=== PATIENT | female | born 1975 | race Caucasian/White ===

== ENCOUNTER → 2017-12-27 16:31 | Outpatient (CLI) | payer BC, SELFPAY ==
[2017-12-27 17:47] LABS: Hemoglobin 13.2 g/dl (12.0-15.0); Mean Corpuscular Hgb 30.5 pg (27.0-32.0); Mean Corpuscular Volume 92.4 fL (81-99); Mean Platelet Vol. 10.7 fl (6.2-12.0); Platelet Count 271 K/mm3 (150-450); RBC Distribution Width CV 13.3 % (11.6-14.6); RBC Distribution Width SD 44.2 fl (35.1-43.9); Red Blood Count 4.33 M/mm3 (4.2-5.4); White Blood Count 7.7 K/mm3 (4.4-11.0)
[2017-12-27 17:55] LABS: Scan Indicated on CBC? Y/N NO
[2017-12-27 18:09] LABS: Vitamin B12 770 pg/mL (211-911); Vitamin D,25 Hydroxy 22.1 ng/mL (29.95-100.01)
[2017-12-27 18:15] LABS: Anion Gap 10 (5-15); BUN 14 mg/dL (7-18); BUN/Creat Ratio 17.3 RATIO (10-20); Calcium,Total 9.1 mg/dL (8.5-10.1); Chloride 111 mmol/L (98-107); Creatinine, Serum 0.81 mg/dL (0.55-1.02); EST Glomerular Filtration Rate 82 mL/min (>60); Est Glom Filt Rate - Afr Amer 100 mL/min (>60); Glucose 105 mg/dL (74-106); Magnesium 2.1 mg/dL (1.6-2.6); Potassium 4.2 mmol/L (3.5-5.1); Sodium Level 143 mmol/L (136-145); Thyroid Stim Hormone (TSH) 2.08 uIU/mL (0.358-3.74)
[2017-12-27 18:38] LABS: Erythrocyte Sedimentation Rate 12 mm/hr (0-20)
== END ==
PROVIDERS: Family Provider Family Medicine; PCP Family Medicine; Visit Provider Family Medicine
DX: E55.9 Vitamin D deficiency, unspecified (principal); R00.2 Palpitations; M25.50 Pain in unspecified joint
CPT/HCPCS: 36415; 80048; 82306; 82607; 83735; 84443; 85027; 85652

== ENCOUNTER → 2018-03-24 08:55 | Outpatient (CLI) | payer BC, SELFPAY ==
--- NOTE | 2018-03-24 09:39 | BI_ITS ---
MAMMOGRAPHY - BILATERAL SCREENING REASON FOR EXAM: Female, 42 years old. Routine annual screening examination. PERTINENT HISTORY: Non-contributory. TECHNIQUE: Digital bilateral breast cortez (3D mammographic acquisition) in the CC and MLO projections. 2-D mediolateral oblique (MLO) and craniocaudad (CC) views of both breasts were obtained. CAD: Full Field Digital Mammography with Computer Added Detection was performed. COMPARISON: Comparison is made with prior examination dated February 24, 2017 and February 19, 2016. FINDINGS: Breast Composition: The breasts are heterogeneously dense, which may obscure small masses. There are no dominant masses or suspicious calcifications. Stable appearance of the bilateral axillary lymph nodes. No other significant abnormalities are identified. There has been no significant change since the prior study. BI/SCREENING MAMM (CAD), BILAT IMPRESSION: Stable bilateral screening mammogram. Yearly follow-up mammogram recommended. (A) ASSESSMENT CATEGORY: BIRADS Category 2: Benign. A letter regarding these results will be sent to the patient by the facility within 30 days. Approximately 10% of breast cancers are not detected by mammography. A normal mammogram should not delay biopsy of a clinically suspicious abnormality. [id number] Electronically Signed: Juan Krishna MD at 9:03 EDT Tel [phone], Service support ,
== END ==
PROVIDERS: Family Provider Family Medicine; PCP Family Medicine
DX: Z12.31 Encounter for screening mammogram for malignant neoplasm of breast (principal)
CPT/HCPCS: 77063; 77067

== ENCOUNTER → 2018-07-31 17:06 | Outpatient (CLI) | payer BC, SELFPAY ==
--- NOTE | 2018-07-31 17:11 | RAD_ITS ---
STUDY: X-RAY - LEFT FOOT CLINICAL: Female, 43 years old. Pain TECHNIQUE: Three view(s) of the foot were obtained. COMPARISON: None. FINDINGS: Bones: There are no acute osseous abnormalities. There is a small spur off the inferior calcaneus. Joints: The visualized joints are unremarkable. Soft tissues: The soft tissues are unremarkable. Foreign body: None RAD/Foot min 3 Views IMPRESSION: No significant abnormalities are seen radiographically in the left foot. Electronically Signed: Lisa Perkins MD at 0:03 EST Tel Direct: [phone], Service support ,
== END ==
PROVIDERS: Family Provider Family Medicine; PCP Family Medicine; Referring Provider Family Medicine; Visit Provider Family Medicine
DX: M25.572 Pain in left ankle and joints of left foot (principal)
CPT/HCPCS: 73630

== ENCOUNTER → 2018-10-19 17:45 | Outpatient (CLI) | payer BC, SELFPAY ==
--- NOTE | 2018-10-19 18:15 | MRI_ITS ---
STUDY: MRI LEFT MIDFOOT REASON FOR EXAM: Female, 43 years old. Metatarsal stress fracture. Pain for 4 months. TECHNIQUE: Standardized fat and water weighted pulse sequences were obtained in all 3 orthogonal planes. COMPARISON: None. FINDINGS: Normal talonavicular articulation. Normal calcaneocuboid articulation. Normal navicular-cuneiform articulations. Normal intercuneiform articulations. Normal first tarsometatarsal articulation. Normal Lisfranc ligament. Normal second and third tarsometatarsal articulations. Normal cuboid fourth and cuboid fifth tarsometatarsal articulation. Normal first through fifth metatarsi. Normal tibialis anterior tendon. Normal extensor hallucis longus tendon. Normal extensor digitorum longus tendons. Normal peroneus longus tendon and distal insertion. Normal peroneus brevis tendon and distal insertion. Normal intrinsic muscles of the mid and forefoot region. Normal extensor digitorum brevis muscle. Normal subcutis adipose space. There is mild degenerative changes noted at the sesamoid bone articulation at the head of the first metatarsal. MRI/Lower Ext/No Jt/w/o IMPRESSION: Mild degenerative changes described. Otherwise unremarkable MRI of the foot. Electronically Signed: Maverick Williamson, at 13:24 EST Tel , Service support ,
== END ==
LOC: MRI 17:47
PROVIDERS: Family Provider Family Medicine; PCP Family Medicine; Referring Provider Podiatrist; Visit Provider Podiatrist
DX: M84.375A Stress fracture, left foot, initial encounter for fracture (principal); M77.42 Metatarsalgia, left foot
CPT/HCPCS: 73718

== ENCOUNTER → 2019-01-02 08:45 | Outpatient (CLI) | payer SELFPAY ==
[2018-11-13 17:39] VITALS: BMI 33.3
--- NOTE | 2019-01-02 14:24 | NEURO ---
NCS and/or EMG Patient Report Ordering Doctor: Wes Cat DATE OF SERVICE: 01/02/19 Lisa Smith is a 43-year-old female who presents for electrodiagnostic testing of the left lower limb. She reports being diagnosed with a stress fracture in the left foot in August. She reports continued pain in the left foot with intermittent hip pain. Elective diagnostic findings: Left peroneal motor nerve demonstrates normal distal latency amplitude and conduction velocity. Normal left tibial motor response. Normal tibial and peroneal F-wave. H reflex normal bilaterally. Sensory responses within normal limits. Needle EMG testing demonstrates no evidence of denervation in the muscles tested. Motor unit action potentials were of normal amplitude and duration. No denervation in the lumbar paraspinals. Electrodiagnostic impression: This is a normal electrodiagnostic study in the left lower limb. There is no electrodiagnostic evidence for peripheral neuropathy or lumbosacral radiculopathy. If there are any further questions, please not hesitate to contact me.
== END ==
PROVIDERS: Family Provider Family Medicine; PCP Family Medicine; Referring Provider Podiatrist; Visit Provider Podiatrist
DX: M54.30 Sciatica, unspecified side (principal); M54.10 Radiculopathy, site unspecified
CPT/HCPCS: 95886; 95910

== ENCOUNTER → 2019-02-19 17:17 | Outpatient (CLI) | payer MEDICAID, SELFPAY ==
[2018-11-13 17:39] VITALS: BMI 33.3
--- NOTE | 2019-02-19 17:22 | RAD_ITS ---
HISTORY: jammed left thumb 2 weeks ago, still having pain XR Fingers Min 2 Views TECHNIQUE: 3 views # of images incl. paperwork: 3 COMPARISON: None. FINDINGS: No acute fracture or dislocation. Joint spaces are well-preserved. Soft tissues appear unremarkable. No radiopaque foreign body. RAD/Finger(s) Min 2 Views IMPRESSION: 1. Negative examination. at 2111 Reported and signed by: Alex Espana MD Electronically Signed: Alex Espana MD at 21:10 EDT Tel , Service support ,
== END ==
PROVIDERS: Family Provider Family Medicine; PCP Family Medicine; Referring Provider Family Medicine; Visit Provider Family Medicine
DX: S69.90XA Unspecified injury of unspecified wrist, hand and finger(s), initial encounter (principal)
CPT/HCPCS: 73140

== ENCOUNTER → 2019-03-09 10:46 | Outpatient (CLI) | payer MEDICAID, SELFPAY ==
[2018-11-13 17:39] VITALS: BMI 33.3
--- NOTE | 2019-03-09 10:53 | BI_ITS ---
MAMMOGRAPHY - BILATERAL SCREENING REASON FOR EXAM: Female, 43 years old. Routine annual screening examination. PERTINENT HISTORY: Non-contributory. TECHNIQUE: Digital bilateral breast velma (3D mammographic acquisition) in the CC and MLO projections. 2-D mediolateral oblique (MLO) and craniocaudad (CC) views of both breasts were obtained. CAD: Full Field Digital Mammography with Computer Added Detection was performed. COMPARISON: Comparison is made with prior study dated March 24, 2018 and February 24, 2017. FINDINGS: Breast Composition: The breasts are heterogeneously dense, which may obscure small masses. There are no dominant masses or suspicious calcifications. Stable benign appearing bilateral axillary lymph nodes. No other significant abnormalities are identified. There has been no significant change since the prior study. BI/SCREEN MAMM (CAD) W/VELMA BILAT IMPRESSION: Stable bilateral screening mammogram. Yearly follow-up mammogram recommended. (A) ASSESSMENT CATEGORY: BIRADS Category 2: Benign. A letter regarding these results will be sent to the patient by the facility within 30 days. Approximately 10% of breast cancers are not detected by mammography. A normal mammogram should not delay biopsy of a clinically suspicious abnormality. [id number] Electronically Signed: Juan Krishna, at 14:12 EDT , Service support ,
== END ==
PROVIDERS: Family Provider Family Medicine; PCP Family Medicine
DX: Z12.31 Encounter for screening mammogram for malignant neoplasm of breast (principal)
CPT/HCPCS: 77063; 77067

== ENCOUNTER → 2019-05-08 08:55 | Outpatient (CLI) | payer MEDICAID, SELFPAY ==
[2018-11-13 17:39] VITALS: BMI 33.3
[2019-05-08 10:36] LABS: Anion Gap 10 (5-15); BUN 11 mg/dL (7-18); BUN/Creat Ratio 13.9 RATIO (10-20); Calcium,Total 8.3 mg/dL (8.5-10.1); Chloride 111 mmol/L (98-107); Cholesterol 181 mg/dL (200); Creatinine, Serum 0.79 mg/dL (0.55-1.02); EST Glomerular Filtration Rate 84 mL/min (>60); Est Glom Filt Rate - Afr Amer 102 mL/min (>60); Glucose 87 mg/dL (74-106); High Density Lipoprotein 45 mg/dL; Potassium 4.2 mmol/L (3.5-5.1); Sodium Level 143 mmol/L (136-145); Triglycerides 224 mg/dL; Very Low Density Lipoprotein 45 mg/dL (5-40)
== END ==
LOC: MFPLAB 08:55
PROVIDERS: Family Provider Family Medicine; PCP Family Medicine; Referring Provider Family Medicine; Visit Provider Family Medicine
DX: E78.2 Mixed hyperlipidemia (principal)
CPT/HCPCS: 36415; 80048; 80061

== ENCOUNTER → 2019-07-08 | Outpatient (CLI) | payer SELFPAY ==
[2018-11-13 17:39] VITALS: BMI 33.3
[2019-07-08 14:22] LABS: Vitamin B12 419 pg/mL (211-911); Vitamin D,25 Hydroxy 16.7 ng/mL (29.95-100.01)
== END | disposition home or self-care (01) ==
LOC: MFPLAB 12:02
PROVIDERS: Family Provider Family Medicine; PCP Family Medicine; Visit Provider Family Medicine
DX: E53.8 Deficiency of other specified B group vitamins (principal); E55.9 Vitamin D deficiency, unspecified
CPT/HCPCS: 36415; 82306; 82607

== ENCOUNTER → 2019-12-10 16:17 | Outpatient (CLI) | payer OTHER, SELFPAY ==
[2018-11-13 17:39] VITALS: BMI 33.3
--- NOTE | 2019-12-10 16:21 | RAD_ITS ---
STUDY: X-RAY - LEFT FOOT CLINICAL: Female, 44 years old. plantar fasciitis TECHNIQUE: 3 view(s) of the foot. COMPARISON: 07/31/2018. FINDINGS: Plantar calcaneal spur otherwise normal talus, calcaneus, and tarsal bones. Normal visualized subtalar, talonavicular, calcaneocuboid, tarsal and tarsometatarsal articulations. Normal metatarsi. There is mild degenerative arthrosis of the metatarsophalangeal joint of the hallux . Normal tibial and fibular sesamoid bones. Normal interphalangeal joint of the great toe. Normal phalanges of the great toe. Normal second through fifth metatarsophalangeal joints. Normal interphalangeal joints and phalanges of the lesser toes. The soft tissue structures are unremarkable. There is no demonstrated fracture. RAD/Foot min 3 Views IMPRESSION: Mild degenerative disease as described. No acute fracture or subluxation seen. Electronically Signed: Cee Spencer MD at 1:15 EDT , Service support ,
== END ==
PROVIDERS: PCP Family Medicine; Referring Provider Family Medicine; Visit Provider Family Medicine
DX: M72.2 Plantar fascial fibromatosis (principal)
CPT/HCPCS: 73630

== ENCOUNTER → 2020-03-11 15:57 | Outpatient (CLI) | payer OTHER, SELFPAY ==
[2018-11-13 17:39] VITALS: BMI 33.3
--- NOTE | 2020-03-11 16:02 | BI_ITS ---
MAMMOGRAPHY - BILATERAL SCREENING REASON FOR EXAM: Female, 44 years old. Routine annual screening examination. PERTINENT HISTORY: Grandmother with breast cancer. TECHNIQUE: Digital bilateral breast velma (3D mammographic acquisition) in the CC and MLO projections. 2-D mediolateral oblique (MLO) and craniocaudad (CC) views of both breasts were obtained. CAD: Full Field Digital Mammography with Computer Added Detection was performed. COMPARISON: Comparison is made with prior study dated March 09, 2019 and March 24, 2018. FINDINGS: Breast Composition: The breasts are heterogeneously dense, which may obscure small masses. There are no dominant masses or suspicious calcifications. Stable small benign-appearing bilateral axillary lymph nodes. No other significant abnormalities are identified. There has been no significant change since the prior study. BI/SCREEN MAMM (CAD) W/VELMA BILAT IMPRESSION: Stable bilateral screening mammogram. Yearly follow-up mammogram recommended. (A) ASSESSMENT CATEGORY: BIRADS Category 2: Benign. A letter regarding these results will be sent to the patient by the facility within 30 days. Approximately 10% of breast cancers are not detected by mammography. A normal mammogram should not delay biopsy of a clinically suspicious abnormality. [id number] Electronically Signed: Juan Krishna, at 7:30 EDT , Service support ,
== END ==
PROVIDERS: PCP Family Medicine
DX: Z12.31 Encounter for screening mammogram for malignant neoplasm of breast (principal); Z80.3 Family history of malignant neoplasm of breast
CPT/HCPCS: 77063; 77067

== ENCOUNTER → 2020-03-27 10:21 | Outpatient (CLI) | payer OTHER, SELFPAY ==
[2018-11-13 17:39] VITALS: BMI 33.3
--- NOTE | 2020-03-27 10:32 | MRI_ITS ---
STUDY: MRI BRAIN WITHOUT CONTRAST REASON FOR EXAM: Female, 44 years old. Migraines with cycle, disoriented TECHNIQUE: Standardized multiplanar fat and water weighted pulse sequences were obtained. COMPARISON: None. FINDINGS: Normal size of the ventricles and extra-axial spaces for the patient''s age. Normal white matter tracts of the supratentorial brain. There is no evidence for recent intracranial ischemia or other cause of cytotoxic edema on diffusion weighted imaging (DWI). Normal T2* images of the brain without demonstrated susceptibility artifact. There is no demonstrated hemosiderin stain. Normal bilateral basal ganglia. Normal thalami. There is no extra-axial fluid accumulation. Normal flow voids within the major intracranial circulation suggesting patency by spin echo criteria. Normal sella turcica, pituitary gland, infundibular stalk, optic chiasm and hypothalamus. Normal tectal plate and pineal gland. Normal midbrain, makeda and medulla. Normal cerebellum. Normal basal cisterns. Normal bilateral temporal bones. Normal bilateral internal auditory canals. No demonstrated orbital abnormality, within the constraints of a routine brain study. Normal visualized paranasal sinuses. Normal calvarium and skull base. Normal visualized soft tissue structures. Normal visualized upper cervical spine. MRI/Brain without Contrast IMPRESSION: Normal unenhanced MRI of the brain. Electronically Signed: Solitario Li MD at 11:23 EDT Tel , Service support ,
== END ==
LOC: MRI 10:24
PROVIDERS: PCP Family Medicine; Referring Provider Family Medicine; Visit Provider Family Medicine
DX: G43.909 Migraine, unspecified, not intractable, without status migrainosus (principal)
CPT/HCPCS: 70551

== ENCOUNTER → 2020-08-03 13:38 | Outpatient (CLI) | payer OTHER, SELFPAY ==
[2018-11-13 17:39] VITALS: BMI 33.3
== END ==
PROVIDERS: PCP Family Medicine; Visit Provider Family Medicine
DX: Z20.828 Contact with and (suspected) exposure to other viral communicable diseases (principal)
CPT/HCPCS: 87635; U0003

== ENCOUNTER → 2020-09-21 18:07 | Outpatient (CLI) | payer OTHER, SELFPAY ==
[2018-11-13 17:39] VITALS: BMI 33.3
== END ==
PROVIDERS: PCP Family Medicine; Referring Provider Nurse Practitioner Family; Visit Provider Nurse Practitioner Family
DX: U07.1 COVID-19 (principal)
CPT/HCPCS: 87635; U0005; U0003

== ENCOUNTER → 2021-03-30 15:55 | Outpatient (CLI) | payer OTHER, SELFPAY ==
[2018-11-13 17:39] VITALS: BMI 33.3
--- NOTE | 2021-03-30 15:59 | BI_ITS ---
MAMMOGRAPHY - BILATERAL SCREENING REASON FOR EXAM: Female, 45 years old. Routine annual screening examination. PERTINENT HISTORY: Grandmother with breast cancer. TECHNIQUE: Digital bilateral breast velma (3D mammographic acquisition) in the CC and MLO projections. 2-D mediolateral oblique (MLO) and craniocaudad (CC) views of both breasts were obtained. CAD: Full Field Digital Mammography with Computer Added Detection was performed. COMPARISON: Comparison is made with prior study dated 03/11/2020 and 03/09/2019. FINDINGS: Breast Composition: The breasts are heterogeneously dense, which may obscure small masses. There are no dominant masses or suspicious calcifications. Stable small benign-appearing bilateral axillary lymph nodes. No other significant abnormalities are identified. There has been no significant change since the prior study. BI/SCRN MAMM (CAD)W/VELMA BILAT IMPRESSION: Stable bilateral screening mammogram. Yearly follow-up mammogram recommended. (A) ASSESSMENT CATEGORY: BIRADS Category 2: Benign. A letter regarding these results will be sent to the patient by the facility within 30 days. Approximately 10% of breast cancers are not detected by mammography. A normal mammogram should not delay biopsy of a clinically suspicious abnormality. [id number] Electronically Signed: Juan Krishna MD at 8:39 EDT , Service support ,
== END ==
PROVIDERS: PCP Family Medicine
DX: Z12.31 Encounter for screening mammogram for malignant neoplasm of breast (principal)
CPT/HCPCS: 77063; 77067

== ENCOUNTER → 2021-08-19 17:45 | Outpatient (CLI) | payer OTHER, SELFPAY | PROVIDERS: PCP Family Medicine; Referring Provider Family Medicine; Visit Provider Family Medicine | DX: Z20.822 Contact with and (suspected) exposure to COVID-19 (principal) | CPT/HCPCS: 87635; U0005; U0003 ==

== ENCOUNTER → 2022-05-06 | Outpatient (CLI) | payer OTHER, SELFPAY ==
--- NOTE | 2022-05-06 15:14 | BI_ITS ---
MAMMOGRAPHY - BILATERAL SCREENING REASON FOR EXAM: Female, 46 years old. Routine annual screening examination. PERTINENT HISTORY: Grandmother with breast cancer. TECHNIQUE: Digital bilateral breast velma (3D mammographic acquisition) in the CC and MLO projections. 2-D mediolateral oblique (MLO) and craniocaudad (CC) views of both breasts were obtained. CAD: Full Field Digital Mammography with Computer Added Detection was performed. COMPARISON: Comparison is made with prior study dated 03/30/2021 and 03/11/2020. FINDINGS: Breast Composition: The breasts are heterogeneously dense, which may obscure small masses. There are no dominant masses or suspicious calcifications. Stable small benign-appearing bilateral axillary lymph nodes. No other significant abnormalities are identified. There has been no significant change since the prior study. BI/SCRN MAMM (CAD)W/VELMA BILAT IMPRESSION: Stable bilateral screening mammogram. Yearly follow-up mammogram recommended. (A) ASSESSMENT CATEGORY: BIRADS Category 2: Benign. A letter regarding these results will be sent to the patient by the facility within 30 days. Approximately 10% of breast cancers are not detected by mammography. A normal mammogram should not delay biopsy of a clinically suspicious abnormality. [id number] Electronically Signed: Juan Krishna MD at 8:06 EDT ,
== END | disposition home or self-care (01) ==
PROVIDERS: PCP Family Medicine
DX: Z12.31 Encounter for screening mammogram for malignant neoplasm of breast (principal); Z80.3 Family history of malignant neoplasm of breast
CPT/HCPCS: 77063; 77067

== ENCOUNTER → 2022-08-05 | Outpatient (CLI) | payer OTHER, SELFPAY ==
[2022-08-05 14:58] LABS: Erythrocyte Sedimentation Rate 15 mm/hr (0-30)
[2022-08-05 15:01] LABS: Absolute Lymphocyte Count 2.25 X10^3/uL (0.83-4.51); Absolute Neutrophil Count 4.9 X10^3/uL (2.0-7.7); Basophil# 0.03 X10^3/uL; Basophil% 0.4 % (0-1); Color, Urine Yellow (Yellow); Eosinophil# 0.09 X10^3/uL; Eosinophils% 1.2 % (0-5); Glucose, Dipstick Normal (Normal); Hematocrit 40.7 % (37-47); Hemoglobin 13.4 g/dL (12.0-15.0); Ketone-Dipstick 5 mg/dl (Negative); Leukocyte Esterase-Dipstick Negative /ul (Negative); Lymphocyte # 2.25 X10^3/ul (0.83-4.51); Lymphocyte % 29.1 % (19-41); Mean Corp Hgb Conc 32.9 g/dL (32-36); Mean Corpuscular Hgb 29.6 pg (27.0-32.0); Monocyte# 0.45 X10^3/uL; Monocyte% 5.8 % (0-10); NRBC Flagged by Analyzer 0 % (0-5); Neutrophil # 4.89 X10^3/uL (2.7-7.7); Neutrophil % 63.2 % (47-70); Nitrite-Dipstick Negative (Negative); Occult Blood-Urine 25 /ul (Negative); Platelet Count 331 K/mm3 (150-450); Protein-Dipstick 30 mg/dl (Negative); RBC Distribution Width CV 13.1 % (11.6-14.6); RBC Distribution Width SD 42.9 fl (35.1-43.9); Red Blood Count 4.52 M/mm3 (4.2-5.4); Specific Gravity, Urine 1.025 (1.002-1.030); Urine Clarity Sl. Cloudy (Clear); Urine Urobilinogen Normal (Normal); White Blood Count 7.7 K/mm3 (4.4-11.0)
[2022-08-05 15:03] LABS: Urine Bilirubin Dipstick 1 mg/dL (Negative)
[2022-08-05 15:06] LABS: Vitamin B12 211 pg/mL (211-911); Vitamin D,25 Hydroxy 9.5 ng/mL
[2022-08-05 15:15] LABS: Anion Gap 8 (5-15); BUN 12 mg/dL (7-18); BUN/Creat Ratio 12.8 RATIO (10-20); Calcium,Total 9.2 mg/dL (8.5-10.1); Chloride 109 mmol/L (98-107); Cholesterol 205 mg/dL (200); Creatinine, Serum 0.94 mg/dL (0.55-1.02); EST Glomerular Filtration Rate 68 mL/min (>60); Est Glom Filt Rate - Afr Amer 82 mL/min (>60); Glucose 90 mg/dL (74-106); High Density Lipoprotein 53 mg/dL; Magnesium 2.1 mg/dL (1.6-2.6); Potassium 4.2 mmol/L (3.5-5.1); Sodium Level 140 mmol/L (136-145); Thyroid Stim Hormone (TSH) 3.28 uIU/mL (0.358-3.74); Triglycerides 186 mg/dL; Very Low Density Lipoprotein 37 mg/dL (5-40)
[2022-08-08 12:25] LABS: ANTINUCLEAR ANTIBODIES DIRECT Negative (Negative)
== END | disposition home or self-care (01) ==
LOC: MTLAB 11:04
PROVIDERS: PCP Family Medicine; Referring Provider Family Medicine; Visit Provider Family Medicine
DX: Z00.00 Encounter for general adult medical examination without abnormal findings (principal); E55.9 Vitamin D deficiency, unspecified; M79.7 Fibromyalgia; E53.8 Deficiency of other specified B group vitamins; Z13.1 Encounter for screening for diabetes mellitus; Z13.220 Encounter for screening for lipoid disorders
CPT/HCPCS: 36415; 80048; 80061; 81002; 82306; 82607; 83735; 84443; 85025; 85652; 86038

== ENCOUNTER → 2023-02-02 | Outpatient (CLI) | payer OTHER, SELFPAY ==
[2023-02-02 18:23] LABS: Vitamin B12 592 pg/mL (211-911); Vitamin D,25 Hydroxy 15.9 ng/mL
== END | disposition home or self-care (01) ==
LOC: MFPLAB 16:19
PROVIDERS: PCP Family Medicine; Visit Provider Family Medicine
DX: E53.8 Deficiency of other specified B group vitamins (principal); E55.9 Vitamin D deficiency, unspecified
CPT/HCPCS: 36415; 82306; 82607

== ENCOUNTER → 2023-02-03 | Outpatient (CLI) | payer OTHER, SELFPAY ==
--- NOTE | 2023-02-02 | IMM_PTH ---
PATIENT: ROCÍO NIEVES LOC: [facility] U#:[id number] AGE/SX: 47/F ROOM: RE02/03/[address]: Dr. Javier Higgins MD : 1975 BED: DIS: 02/03/2023 SPEC #: [id number] RECD: 02/07/23 12:18 STATUS: FABIO REQ #: [id number] VIRIDIANA: 02/02/23 00:[address]: Javier Higgins DEPT: IMMUNOHISTOCHEMISTRY RECD BY: Barbara Jang Tissues: Forearm, NOS Procedures: SMA (add) Robert Ret (add) CD31 (add) CD34 (add) DESMIN (add) P53 (add) Vimentin (add) Pankeratin (initial) S-100 (add) PHYSICIAN & INSTITUTION [facility] [id number] SPECIMEN INFORMATION: Tissue Source: Left forearm Clinical Info: Nevus Specimen Number: [id number] CPT code: 53232, 95996 x8 METHODOLOGY: Deparaffinized sections of prefer/formalin-fixed tissue or PAP/DQ stained slides are incubated with monoclonal/polyclonal antibodies/oligonucleotide probes. Localization is made via biotin free immunoperoxidase method. Appropriate controls are performed and reacted as expected. Results on target cell population are indicated in the following table: RESULTS: ANTIBODY / CLONE RESULT AE1-3 (AE1/AE3/PCK26) negative Vimentin (V9) positive CD31 (GUSTAVO/70A) negative CD34 (QBEnd-10) negative Actin (1A4) positive Desmin (CE-R-11) negative S-100 (4C4.9) negative CALRET (polyclonal) positive, focal P53 (DO-7) negative These tests were developed and their performance characteristics determined by [facility]. They may not have been cleared or approved by the U.S. Food and Drug Administration. The FDA has determined that such clearance or approval is not necessary. The above immunohistochemical/dualISH markers are ordered and reviewed by the Pathologist. INTERPRETATION: Lesion of left forearm, biopsy: Consistent with dermatofibroma. AM:monica 02/08/2023
--- NOTE | 2023-02-02 16:00 | LES_PTH ---
PATIENT: ROCÍO NIEVES [facility] U#:[id number] AGE/SX: 47/F ROOM: RE02/03/[address]: Dr. Javier Higgins MD : 1975 BED: DIS: 02/03/2023 SPEC #: [id number] RECD: 02/03/23 10:11 STATUS: FABIO JACOBSON #: [id number] VIRIDIANA: 02/02/23 16:[address]: Javier Higgins DEPT: SURGICAL PATHOLOGY RECD BY: Tran Loya Tissues: Skin of arm Procedures: Surgery Specimen Level IV HEADER OPERATION: Excision left forearm PRE-OP DIAGNOSIS: Nevus TISSUE SUBMITTED: Left forearm MICROSCOPIC DIAGNOSIS Lesion of left forearm, biopsy: Dermatofibroma. See comment. AM:monica 02/07/2023 COMMENT Immunohistochemistry ([id number]) supports the above diagnosis. MICROSCOPIC DESCRIPTION Slides are reviewed. GROSS DESCRIPTION Received in fixative is one container labeled with the patient's name and designated left forearm. The specimen consists of a round piece of olson-white skin measuring 0.6 x 0.6 x 0.2 cm. The specimen is inked, bisected and submitted entirely in one cassette. / SJ:rg 02/03/2023 TC:1 CPT: 81808
== END | disposition home or self-care (01) ==
LOC: LABSPEC 10:31
PROVIDERS: PCP Family Medicine; Referring Provider Family Medicine; Visit Provider Family Medicine
DX: D36.7 Benign neoplasm of other specified sites (principal)
CPT/HCPCS: 88305; 88341; 88342

== ENCOUNTER → 2023-02-16 | Outpatient (CLI) | payer OTHER, SELFPAY ==
--- NOTE | 2023-02-16 15:54 | RAD_ITS ---
STUDY: X-RAY - RIGHT KNEE REASON FOR EXAM: Female, 47 years old. pain TECHNIQUE: 4 view(s) of the knee. COMPARISON: None. FINDINGS: Normal visualized distal femur. Normal visualized proximal tibia and fibula. Normal proximal tibiofibular articulation. There is no demonstrated fracture. Normal medial femorotibial compartment. Normal lateral femorotibial compartment. There is mild degenerative arthrosis of the patellofemoral articulation. There is no demonstrated joint effusion. The soft tissue structures are unremarkable. RAD/Knee 4 or More Views IMPRESSION: No acute fracture or dislocation. Mild patellofemoral degenerative changes. Electronically Signed: Ervin Livingston MD at 19:58 EDT ,
== END | disposition home or self-care (01) ==
LOC: MTRAD 15:54
PROVIDERS: PCP Family Medicine; Referring Provider Family Medicine; Visit Provider Family Medicine
DX: M17.10 Unilateral primary osteoarthritis, unspecified knee (principal)
CPT/HCPCS: 73564

== ENCOUNTER 2023-04-07 08:13 | Day surgery (SDC) | payer OTHER, SELFPAY ==
--- NOTE | 2023-04-07 08:29 | PCM.HP.STD ---
HPI - General General Date of Admission: 05/26/20 Date of Service: 04/07/23 Chief Complaint: Screening for intestinal cancer HPI Narrative ROCÍO NIEVES, is a 47 F who presents for screening colonoscopy today. She has not had a previous one. No significant chronic medical illnesses. She denies abdominal pain bright red blood per rectum or melena. [facility] Medical History (Updated 04/03/23 @ 12:40 by Rosa Maria Gilman) Acute upper respiratory infection Anxiety Arthritis Contact with or suspected exposure to other viral communicable disease COVID-19 Hay fever Head congestion Heartburn history of bunionectomy History of pain when walking Knee pain Migraine headache Non-smoker Otitis media Sinusitis, acute Thyroid disease Wears glasses Home Medications acetaminophen 325 mg tablet (Tylenol) 325 mg PO ONCE PRN pain 10/22/17 [History Last Taken Unknown] cholecalciferol (vitamin D3) 1,250 mcg (50,000 unit) capsule 1,250 mcg PO QWEEK 02/10/23 [History Last Taken Unknown] Allergy/AdvReac Type Severity Reaction Status Date / Time Seasonal Allergies: Uncoded Allergy Mild NEEDS Verified 04/03/23 12:34 FOLLOW-UP Surgical History (Updated 04/03/23 @ 12:40 by Rosa Maria Gilman) History of Social History Smoking Status: Never smoker alcohol intake: never ROS Constitutional Constitutional: Reports systems reviewed and no addt'l complaints, except as documented Cardiovascular Cardiovascular: Denies chest pain Respiratory/Chest Respiratory/Chest: Denies shortness of breath at rest Gastrointestinal Gastrointestinal: Denies abdominal pain, change in bowel habits, hematochezia or melena Physical Exam Const alert, oriented x3 and no apparent distress General Appearance: cooperative and comfortable Eyes General Eye: normal appearance of both eyes Neck General: normal visual inspection Chest inspection of chest normal Resp Effort and Inspection: able to speak in complete sentences and symmetric chest movement Auscultation: clear to auscultation bilaterally Cardio regular rate and regular rhythm GI soft to palpation, non-tender and non-distended Extremity no calf tenderness Neuro oriented x3 Psych thought process normal Assessment & Plan Assessment/Plan (1) Encounter for screening for malignant neoplasm of colon: PLAN: 47-year-old female presents for a screening colonoscopy today with possible biopsy or polypectomy as indicated. She presents via open access today. She has had an opportunity to ask and have questions answered. We will proceed as noted. Wilian Witt M.D., F.A.C.S.
[2023-04-07 08:37] VITALS: BP 134/89; PULSE 90; RESP 18; TEMP 36.8; O2SAT 99; BMI 35.8
[2023-04-07] MEDS: Lactated Ringers 1,000 ML 15 ML IV (08:39)
--- NOTE | 2023-04-07 09:24 | OP.COLON_ITS ---
Patient Name: Lisa Smith Procedure Date: 04/07/2023 8:59 AM Date of : 1975 Age: 47 Procedure: Colonoscopy Indications: Screening for colorectal malignant neoplasm Providers: Wilian Witt MD Referring MD: Wilian Witt MD Medicines: See the Anesthesia note for documentation of the administered medications Patient Profile: Last Colonoscopy: none. The patient's first colonoscopy is today. Complications: No immediate complications. Procedure: Pre-Anesthesia Assessment: - Prior to the procedure, a History and Physical was performed, and patient medications and allergies were reviewed. The patient's tolerance of previous anesthesia was also reviewed. The risks and benefits of the procedure and the sedation options and risks were discussed with the patient. All questions were answered, and informed consent was obtained. Prior Anticoagulants: The patient has taken no previous anticoagulant or antiplatelet agents. ASA Grade Assessment: II - A patient with mild systemic disease. After reviewing the risks and benefits, the patient was deemed in satisfactory condition to undergo the procedure. After I obtained informed consent, the scope was passed under direct vision. Throughout the procedure, the patient's blood pressure, pulse, and oxygen saturations were monitored continuously. The colonoscope was introduced through the anus and advanced to the cecum, identified by appendiceal orifice and ileocecal valve. The colonoscopy was performed without difficulty. The patient tolerated the procedure well. The quality of the bowel preparation was good. The ileocecal valve and the appendiceal orifice were photographed. Scope In: 9:09:34 AM Scope Withdrawal Time 0 hours 6 minutes 42 seconds Scope Out: 9:20:35 AM Total Procedure Duration Time 0 hours 11 minutes 1 second Findings: Hemorrhoids were found on perianal exam. A few diverticula were found in the entire colon. The exam was otherwise without abnormality. Impression: - Hemorrhoids found on perianal exam. - Diverticulosis in the entire examined colon. - The examination was otherwise normal. - No specimens collected. Recommendation: - Discharge patient to home. - Resume previous diet. - Continue present medications. - Repeat colonoscopy in 10 years for screening purposes. Procedure Code(s): --- Professional --- 90408, Colonoscopy, flexible; diagnostic, including collection of specimen(s) by brushing or washing, when performed (separate procedure) Diagnosis Code(s): --- Professional --- Z12.11, Encounter for screening for malignant neoplasm of colon K64.9, Unspecified hemorrhoids K57.30, Diverticulosis of large intestine without perforation or abscess without bleeding CPT copyright 2017 [employer]. All rights reserved. The codes documented in this report are preliminary and upon mat inspector review may be revised to meet current compliance requirements. Wilian Witt MD 04/07/2023 9:24:42 AM This report has been signed electronically. Number of Addenda: 0 Note Initiated On: 04/07/2023 8:59 AM
--- NOTE | 2023-04-07 09:24 | OP.CCLET_ITS ---
04/07/2023 Harjinder Higgins [address] [place] [address] Re : Colonoscopy procedure for Lisa [place] Dear Dr. Higgins This procedure was performed on Friday, April 07, 2023. My impressions and recommendations are as follows: Impressions : - Hemorrhoids found on perianal exam. - Diverticulosis in the entire examined colon. - The examination was otherwise normal. - No specimens collected. Recommendations : - Discharge patient to home. - Resume previous diet. - Continue present medications. - Repeat colonoscopy in 10 years for screening purposes. My findings are described in the full procedure note, which is enclosed. If I can be of further assistance, please feel free to contact me at Doctor phone number(s): Work: . Sincerely, Wilian Witt MD 04/07/2023 9:24:42 AM This report has been signed electronically.
[2023-04-07 09:25] VITALS: BP 111/48; BP 134/89; PULSE 82; RESP 16; TEMP 36.5; O2SAT 94
[2023-04-07 09:30] VITALS: BP 115/60; BP 134/89; PULSE 79; RESP 16; O2SAT 95
[2023-04-07 09:35] VITALS: BP 106/62; BP 134/89; PULSE 75; RESP 16; O2SAT 94
[2023-04-07 09:40] VITALS: BP 112/77; BP 134/89; PULSE 71; RESP 16; TEMP 36.2; O2SAT 98
[2023-04-07 09:53] VITALS: BP 134/89
== END 2023-04-07 10:11 | disposition home or self-care (01) ==
LOC: EN 08:17 → AC 08:18
PROVIDERS: PCP Family Medicine; Referring Provider Family Medicine; Visit Provider Surgery
PROC: 0DJD8ZZ Inspection of Lower Intestinal Tract, Via Natural or Artificial Opening Endoscopic (ICD-10-PCS; CPT 45378; principal; 2023-04-07 09:10)
DX: Z12.11 Encounter for screening for malignant neoplasm of colon (principal); K57.30 Diverticulosis of large intestine without perforation or abscess without bleeding; K64.9 Unspecified hemorrhoids; Z86.16 Personal history of COVID-19
CPT/HCPCS: 45378; J7120; J2405

== ENCOUNTER 2023-04-17 16:00 | Outpatient (RCR) | payer OTHER, SELFPAY ==
--- NOTE | 2023-03-10 08:44 | HP.PTEVAL ---
Patient's Visit Information Visit Information Visit Information: ORCÍO NIEVES is a 47 year old F referred to Physical Therapy by Dr. Harjinder Higgins MD with a diagnosis of knee pain. Date of Evaluation: 03/10/23 Physical Therapist: Homer Ratliff, DPT, OCS, CSCS Visit Plan Frequency: 2x /Week Duration: 4-6 Weeks Plan: 2x/week for 4-6 weeks for 1. ensure ROM of knees and stretching of quads going well at home, may use rollout on quads and ITB 2. Teach strength hips stabs and knees and core and porgress to HEP or gym(pt choice) with pics as tolerated and appropriate. ice as needed. Subjective Subjective: [place] always had knee problems since teenager. Dislocated L knee in HS and took months to heal. R knee has not been bad but hurts at times. A couple weeks ago R knee looked swollen for no reason. Knees looked odd to her over the years. Feels a lot of pulling at times in medial R knee and limits steps as they hurt. No obvious reason. Sitting down on knees can hurt. R knee hurts to 3/10, and L knee 0/10. Knees crack constantly. 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 Activities at home : knees difficult with laundry as it is in basement. On bad days steps outside are painful. Walking is usually OK. Anything bending the knees causes pain typically. sleep is not pa problem with her knees. Pain R knee: Pain Intensity (Out of 10): 0 Pain Intensity Range: 0 and 3 Objective Objective: Wallks without antalgia today, trasnfers I, steps up reciprocal without rail, descending requires rail and a little painful L. R knee AROM 0-13- adn l knee 0-115 with some pullking. Hurts to squat in L knee. Patella moves well B, Q angle is vlagus. lateral patellar movement sore B. ankle an Hip AROM WFL Very weak in hip rotations and abd and extension 3 and flexion 3+ B. knee ext 4 and knee flexion 4- B. ankle 4+/5 Flexibility in quad is poor B and HS min deficits. reflexes 2/3 patella and achilles Sensation LE WNL to gross light touch. LB AROM WFL and without pain. - vlagus and varus + patellar grind R>L - anterior drawer. - post sag. Balance/Special Test Scores Lower Extremity Functional Score: 30 Goals Goal 1:: Full aROM B knees without pain Goal Time Frame: 2-4 Weeks Goal 2:: Walk up and down steps without pain regularly Goal Time Frame: 4-6 Weeks Goal 3:: I appropr HEP to limit future problems*strength hips and core and knees) Goal Time Frame: 4-6 Weeks Goal 4:: Pt feel pain 75% better and 1/10 at worst. Goal Time Frame: 4-6 Weeks Goal 5:: LEFS 50 Goal Time Frame: 4-6 Weeks Rehabilitation Potential Physical Therapy Diagnosis: knee pain from weakness and tightness effecting home life Rehabilitation Potential: Fair Anticipated Interventions Patient/Client Instruction: Educate patient on: Condition and Plan of Care For the Purpose of:: To decrease pain, To decrease swelling/inflammation, To increase ROM, To improve nutrient delivery to tissue and To increase tolerance to activity/condition/position Therapeutic Exercise to Include: Strength training, Flexibilty training, Passive ROM and Active ROM For the Purpose of:: To decrease pain, To increase ROM, To improve nutrient delivery to tissue, To improve muscle performance and motor function, To improve ability to perform ADL's, To increase tolerance to activity/condition/position and To improve gait and locomotor functions Manual Therapy Techniques to Include: Passive ROM and Soft tissue mobilization For the Purpose of:: To decrease pain and To increase ROM Cryotherapy (ice pack, ice massage): Yes For the Purpose of:: To decrease pain and To decrease swelling/inflammation Text: Thank you for the opportunity to evaluate your patient. For Medicare and Medicare HMO plans, please review the plan of care and approve it. It will need to be FAXED BACK to us at [phone] for Medicare purposes. For Medicare only, by signing this I certify the plan of care. Please let me know if there are questions or concerns regarding this plan of care. Physician Signature: Date:
--- NOTE | 2023-06-14 08:02 | HP.PT.NRP ---
Patient Information Patient Information: ROCÍO NIEVES was seen in my office for initial evaluation on 03/10/23. The following Plan of Care was established for this patient: POC Established Initial Frequency: 2x /Week Initial Duration: 4-6 Weeks Anticipated Interventions Patient/Client Instruction: Educate patient on: Condition and Plan of Care For the Purpose of:: To decrease pain, To decrease swelling/inflammation, To increase ROM, To improve nutrient delivery to tissue and To increase tolerance to activity/condition/position Therapeutic Exercise to Include: Strength training, Flexibilty training, Passive ROM and Active ROM For the Purpose of:: To decrease pain, To increase ROM, To improve nutrient delivery to tissue, To improve muscle performance and motor function, To improve ability to perform ADL's, To increase tolerance to activity/condition/position and To improve gait and locomotor functions Manual Therapy Techniques to Include: Passive ROM and Soft tissue mobilization For the Purpose of:: To decrease pain and To increase ROM Cryotherapy (ice pack, ice massage): Yes For the Purpose of:: To decrease pain and To decrease swelling/inflammation Last Seen Last Seen: This patient was last seen in our office 04/17/23. Pertinent comments regarding their Physical therapy will appear below: Pt seen 5 visits of POC and was improving subjectively. She cancelled her last appointment and neglected to reschedule. At this point, it has been over 6 weeks and i will discontinue due to nonattendance. At this point I will be discontinuing this patient from physical therapy. I would be happy to see this patient again in the future if found appropriate by the physician. Thank you! Homer Ratliff, DPT, OCS, CSCS Balance/Gait/Functional tests Balance/Special Test Scores Lower Extremity Functional Score: 30
== END 2023-04-17 19:00 | disposition home or self-care (01) ==
LOC: PT 16:00
PROVIDERS: PCP Family Medicine; Referring Provider Family Medicine; Visit Provider Family Medicine
DX: M25.562 Pain in left knee (principal)
CPT/HCPCS: 97110; 97161

== ENCOUNTER → 2023-05-17 | Outpatient (CLI) | payer OTHER, SELFPAY ==
--- NOTE | 2023-05-17 15:52 | BI_ITS ---
MAMMOGRAPHY - BILATERAL SCREENING REASON FOR EXAM: Female, 47 years old. Routine annual screening examination. PERTINENT HISTORY: Grandmother with breast cancer. TECHNIQUE: Digital bilateral breast velma (3D mammographic acquisition) in the CC and MLO projections. 2-D mediolateral oblique (MLO) and craniocaudad (CC) views of both breasts were obtained. CAD: Full Field Digital Mammography with Computer Added Detection was performed. COMPARISON: Comparison is made with prior study dated May 06, 2022 and March 30, 2021. FINDINGS: Breast Composition: The breasts are heterogeneously dense, which may obscure small masses. There are no dominant masses or suspicious calcifications. Stable small benign-appearing bilateral axillary lymph nodes. No other significant abnormalities are identified. There has been no significant change since the prior study. BI/SCRN MAMM (CAD)W/VELMA BILAT IMPRESSION: Stable bilateral screening mammogram. Yearly follow-up mammogram recommended. (A) ASSESSMENT CATEGORY: BIRADS Category 2: Benign. A letter regarding these results will be sent to the patient by the facility within 30 days. Approximately 10% of breast cancers are not detected by mammography. A normal mammogram should not delay biopsy of a clinically suspicious abnormality. [id number] Electronically Signed: Juan Krishna MD at 9:07 EDT ,
== END | disposition home or self-care (01) ==
LOC: OPBI 15:49
PROVIDERS: PCP Family Medicine
DX: Z12.31 Encounter for screening mammogram for malignant neoplasm of breast (principal); Z80.3 Family history of malignant neoplasm of breast
CPT/HCPCS: 77063; 77067

== ENCOUNTER → 2023-11-06 | Outpatient (CLI) | payer OTHER, SELFPAY ==
[2023-11-06 10:38] LABS: Bacteria 0 SEEN /hpf (None Seen); Mucous, Urine 0 SEEN /hpf (<or=2+); White Blood Cells 0 SEEN /hpf (0-5)
[2023-11-06 11:01] LABS: Color, Urine Yellow (Yellow); Glucose, Dipstick Normal (Normal); Ketone-Dipstick 5 mg/dl (Negative); Leukocyte Esterase-Dipstick Negative /ul (Negative); Nitrite-Dipstick Negative (Negative); Occult Blood-Urine 150 /ul (Negative); Protein-Dipstick 30 mg/dl (Negative); Specific Gravity, Urine 1.025 (1.002-1.030); Urine Bilirubin Dipstick Negative (Negative); Urine Clarity Sl. Cloudy (Clear); Urine Urobilinogen Normal (Normal)
[2023-11-06 11:16] LABS: Squamous Epithelial Cells - UA 5-10 SEEN /hpf (5-10)
[2023-11-06 11:17] LABS: Calcium Oxalate Crystals Ur 1+ /hpf (<or=2+); Red Blood Cells-Urine 10-25 SEEN /hpf (0-5)
== END | disposition home or self-care (01) ==
LOC: LABSPEC 10:15
PROVIDERS: PCP Family Medicine; Visit Provider Family Medicine
DX: R53.83 Other fatigue (principal)
CPT/HCPCS: 81001; 87086; 87088

== ENCOUNTER → 2023-11-07 | Outpatient (CLI) | payer OTHER, SELFPAY ==
[2023-11-07 15:17] LABS: Bacteria 0 SEEN /hpf (None Seen); Mucous, Urine 0 SEEN /hpf (<or=2+); White Blood Cells 0 SEEN /hpf (0-5)
[2023-11-07 18:06] LABS: Hemoglobin 12.5 g/dL (12.0-15.0); Mean Corp Hgb Conc 32.9 g/dL (32-36); Mean Corpuscular Hgb 29.7 pg (27.0-32.0); Mean Corpuscular Volume 90.3 fL (81-99); Mean Platelet Vol. 10.9 fl (6.2-12.0); Platelet Count 301 K/mm3 (150-450); RBC Distribution Width CV 13.5 % (11.6-14.6); RBC Distribution Width SD 44.6 fl (35.1-43.9); Red Blood Count 4.21 M/mm3 (4.2-5.4); White Blood Count 10.3 K/mm3 (4.4-11.0)
[2023-11-07 18:19] LABS: Color, Urine Yellow (Yellow); Glucose, Dipstick Normal (Normal); Ketone-Dipstick Negative (Negative); Leukocyte Esterase-Dipstick Negative /ul (Negative); Nitrite-Dipstick Negative (Negative); Occult Blood-Urine 25 /ul (Negative); Protein-Dipstick 15 mg/dl (Negative); Specific Gravity, Urine 1.025 (1.002-1.030); Urine Bilirubin Dipstick Negative (Negative); Urine Clarity Clear (Clear); Urine Urobilinogen Normal (Normal)
[2023-11-07 18:26] LABS: Calcium Oxalate Crystals Ur 1+ /hpf (<or=2+); Red Blood Cells-Urine 0-5 SEEN /hpf (0-5); Squamous Epithelial Cells - UA 0-5 SEEN /hpf (5-10)
[2023-11-07 18:27] LABS: Erythrocyte Sedimentation Rate 11 mm/hr (0-30)
[2023-11-07 18:30] LABS: Hemoglobin A1c 5.6 % (3.8-5.6)
[2023-11-07 18:32] LABS: Vitamin B12 254 pg/mL (211-911)
[2023-11-07 18:42] LABS: AST(SGOT) 14 U/L (15-37); Alanine Aminotransfer ALT/SGPT 21 U/L (13-56); Albumin, Serum 3.6 g/dL (3.2-5.0); Alkaline Phosphatase 69 U/L (45-117); Anion Gap 6 (5-15); BUN 14 mg/dL (7-18); BUN/Creat Ratio 16.7 RATIO (10-20); Calcium,Total 8.8 mg/dL (8.5-10.1); Chloride 110 mmol/L (98-107); Creatinine, Serum 0.84 mg/dL (0.55-1.02); EST Glomerular Filtration Rate 77 mL/min (>60); Est Glom Filt Rate - Afr Amer 93 mL/min (>60); Ferritin 10 ng/mL (8-252); Globulin 3.5 g/dL (2.2-4.2); Glucose 98 mg/dL (74-106); Iron 61 ug/dL (50-170); Potassium 3.8 mmol/L (3.5-5.1); Protein, Total 7.1 g/dL (6.4-8.2); Sodium Level 141 mmol/L (136-145); Thyroid Stim Hormone (TSH) 2.15 uIU/mL (0.358-3.74)
== END | disposition home or self-care (01) ==
PROVIDERS: PCP Family Medicine; Referring Provider Family Medicine; Visit Provider Family Medicine
DX: R53.83 Other fatigue (principal); R63.1 Polydipsia
CPT/HCPCS: 36415; 80053; 81001; 82607; 82728; 83036; 83540; 84443; 85027; 85652; 87086; 87088

== ENCOUNTER → 2024-05-21 | Outpatient (CLI) | payer OTHER, SELFPAY ==
--- NOTE | 2024-05-21 15:25 | BI_ITS ---
MAMMOGRAPHY - BILATERAL SCREENING REASON FOR EXAM: Female, 48 years old. Routine annual screening examination. PERTINENT HISTORY: Grandmother with breast cancer. TECHNIQUE: Digital bilateral breast velma (3D mammographic acquisition) in the CC and MLO projections. 2-D mediolateral oblique (MLO) and craniocaudad (CC) views of both breasts were obtained. CAD: Full Field Digital Mammography with Computer Added Detection was performed. COMPARISON: Comparison is made with prior study of May 17, 2023 and May 06, 2022. FINDINGS: Breast Composition: The breasts are heterogeneously dense, which may obscure small masses. There is a 1.4 cm x 1.3 cm nodule in the deep central medial aspect of the left breast. Correlation with ultrasound is recommended. Stable small benign-appearing bilateral axillary lymph nodes. No other significant abnormalities are identified. BI/SCRN MAMM (CAD)W/VELMA BILAT IMPRESSION: 1.4 cm x 1.3 cm nodule in the deep central medial aspect of the left breast. Correlation with ultrasound is recommended. ASSESSMENT CATEGORY: BIRADS Category 0: Incomplete. Need additional imaging evaluation. A letter regarding these results will be sent to the patient by the facility within 30 days. Approximately 10% of breast cancers are not detected by mammography. A normal mammogram should not delay biopsy of a clinically suspicious abnormality. [id number] Electronically Signed: Juan Krishna MD at 15:36 EDT ,
== END | disposition home or self-care (01) ==
PROVIDERS: PCP Family Medicine; Referring Provider Obstetrics & Gynecology; Visit Provider Obstetrics & Gynecology
DX: Z12.31 Encounter for screening mammogram for malignant neoplasm of breast (principal); Z80.3 Family history of malignant neoplasm of breast
CPT/HCPCS: 77063; 77067

== ENCOUNTER → 2024-05-29 | Outpatient (CLI) | payer OTHER, SELFPAY ==
--- NOTE | 2024-05-29 10:46 | US_ITS ---
STUDY: ULTRASOUND BREAST - LEFT REASON FOR EXAM: Female, 48 years old. Abnormal screening mammogram. TECHNIQUE: Axial and longitudinal images of the LEFT breast were performed with a high resolution ultrasound transducer. # OF IMAGES: 11 COMPARISON: Comparison is made with prior mammogram dated May 21, 2024. FINDINGS: LEFT Breast: The mammographic abnormality corresponds to a 1 cm x 0.9 cm x 0.5 cm well-defined hypoechoic nodule at the 10:00 position of the breast at 7 cm from the nipple. This most likely represents a fibroadenoma. Biopsy recommended. US/Breast Limited Unilateral IMPRESSION: The mammographic abnormality corresponds to a 1 cm x 0.9 cm x 0.5 cm well-defined hypoechoic nodule at the 10:00 position of the breast at 7 cm from the nipple. Biopsy recommended. ASSESSMENT CATEGORY: BIRADS Category 4: Suspicious - Biopsy Should Be Considered. A letter regarding these results will be sent to the patient by the facility within 30 days. Electronically Signed: Juan Krishna MD at 13:48 EDT ,
== END | disposition home or self-care (01) ==
PROVIDERS: PCP Family Medicine; Referring Provider Obstetrics & Gynecology; Visit Provider Obstetrics & Gynecology
DX: N63.20 Unspecified lump in the left breast, unspecified quadrant (principal); R92.8 Other abnormal and inconclusive findings on diagnostic imaging of breast
CPT/HCPCS: 76642

== ENCOUNTER → 2024-06-04 | Outpatient (CLI) | payer OTHER, SELFPAY ==
--- NOTE | 2024-06-04 | BRBX_PTH ---
PATIENT: ROCÍO NIEVES LOC: [facility] U#:[id number] AGE/SX: 48/F ROOM: RE06/04/[address]: Dr. Elvin Ortiz MD : 1975 BED: DIS: 06/04/2024 SPEC #: [id number] RECD: 06/04/24 15:14 STATUS: FABIO REQ #: [id number] VIRIDIANA: 06/04/24 00:[address]: Elvin Ortiz DEPT: SURGICAL PATHOLOGY RECD BY: Jaron Silva ENTERED: 06/05/24 08:02 SP TYPE: BREAST BX OTHR DR: Dr. Javier Higgins MD Tissues: Left breast, NOS Procedures: Surgery Specimen Level IV HEADER OPERATION: Ultrasound guided needle core biopsy left breast PRE-OP DIAGNOSIS: Abnormal mammogram TISSUE SUBMITTED: Left breast biopsy Ischemic Time: 1 minute Fixation Time: 30 hours MICROSCOPIC DIAGNOSIS Left breast, ultrasound guided needle core biopsy: Fibroadenoma. Negative for atypia or malignancy. See comment. CHAZ/ 06/06/2024 COMMENT Correlation with clinical, radiologic findings and appropriate follow up are necessary. MICROSCOPIC DESCRIPTION Slides are reviewed. GROSS DESCRIPTION Received in fixative is one container labeled with the patient's name and designated Left breast biopsy. The specimen consists of multiple elongated fragments of olson-yellow fibroadipose tissue that in aggregate measure 1.5 x 0.3 x 0.1 cm. The specimen is totally submitted in one cassette. 06/05/2024 TC:1 CPT:82445
== END | disposition home or self-care (01) ==
LOC: LABSPEC 15:33
PROVIDERS: PCP Family Medicine; Referring Provider Surgery; Visit Provider Surgery
DX: D24.2 Benign neoplasm of left breast (principal); R92.8 Other abnormal and inconclusive findings on diagnostic imaging of breast
CPT/HCPCS: 88305

== ENCOUNTER 2024-07-22 07:32 | Day surgery (SDC) | payer OTHER, SELFPAY ==
[2024-07-22] VITALS (10 sets, daily range): BP systolic 109–132; BP diastolic 63–97; PULSE 65–84; RESP 12–18; TEMP 36.4–36.9; O2SAT 92–100; BMI 39.1
--- NOTE | 2024-07-22 | BRBX_PTH ---
PATIENT: ROCÍO NIEVES LOC: [facility] U#:[id number] AGE/SX: 49/F ROOM: RE07/22/[address]: Dr. Elvin Ortiz MD : 1975 BED: DIS: 07/22/2024 SPEC #: [id number] RECD: 07/22/24 09:11 STATUS: FABIO JACOBSON #: [id number] VIRIDIANA: 07/22/24 00:[address]: Elvin Ortiz DEPT: SURGICAL PATHOLOGY RECD BY: Sangeeta Riddle ENTERED: 07/22/24 10:50 SP TYPE: BREAST BX OTHR DR: Dr. Javier Higgins MD Tissues: Left breast, NOS Procedures: Surgery Specimen Level IV HEADER OPERATION: Breast, lumpectomy, ultrasound guided needle localization in OR PRE-OP DIAGNOSIS: Fibroadenoma left breast TISSUE SUBMITTED: Left breast tissue MICROSCOPIC DIAGNOSIS Left breast, lumpectomy: Fibroadenoma. Mild fibrocystic change. Changes of previous biopsy. No evidence of malignancy. AM. 07/24/2024 MICROSCOPIC DESCRIPTION Slides are reviewed. GROSS DESCRIPTION Received in fixative is one container labeled with the patient's name and designated Left breast tissue. The specimen consists of an unoriented piece of fibroadipose tissue with needle localization measuring 3.0 x 2.7 x 1.2cm. Sections reveal a olson solid nodule measuring 0.7cm in diameter. The entire specimen is submitted in four cassettes. 07/23/2024 TC:1 CPT:39177
--- NOTE | 2024-07-22 08:03 | HP.PCM_ITS ---
History and Physical Date of Admission: 07/22/24 Intake Vital Signs 06/04/2413:40 07/01/2409:26 Height 5 ft 5 ft Weight: 195 lb BMI 38.0 BP 115/78 Blood Pressure Location Rt brachial Position Sitting Respiration 18 Pulse 93 Pulse Source Monitor Temp 97.4 F L Temp Source Temporal Pulse Oximetry (%) 97 Oxygen Delivery Method room air Intake Visit Reasons: DISCUSS BREAST SURGERY Chief Complaint: Discuss breast surgery Manager Managing Required: No Accompanied by: Mother Is patient in pain?: No Allergies Seasonal Allergies: Uncoded Allergy (Mild, Verified 07/01/24 09:27) NEEDS FOLLOW-UP Medications ?Medication ?Instructions ?Recorded ?Confirmed ?Type NK 07/01/24 07/01/24 History PFSH Medical History (Updated 07/01/24 @ 09:[address] Elvin Ortiz MD) Fibroadenoma of breast Abnormal mammogram Abnormal ultrasound of breast Wears glasses Anxiety Thyroid disease Arthritis Migraine headache Heartburn Non-smoker History of pain when walking Acute upper respiratory infection Contact with or suspected exposure to other viral communicable disease COVID-19 Head congestion Sinusitis, acute Otitis media history of bunionectomy Knee pain Hay fever Surgical History History of Social History Smoking Status: Never smoker alcohol intake: never substance use type: does not use HPI HPI HPI: Patient is a 48-year-old female here for her fibroadenoma of the left breast. She would like it removed as it is causing pain. It is currently painful as she is on her period this was biopsied and came back positive for fibroadenoma. ROS General General: Yes weight change and fatigue; No appetite, colon cancer, breast cancer or weakness HEENT HEENT: No difficulty swallowing, eye injury, eye surgery, swollen glands or hoarseness Endo Endocrine: No thyroid disease, diabetes mellitus, thyroid cancer, Hair loss, heat intolerance or cold intolerance Skin Skin: No rash or changing moles Breast Breast: Yes breast pain, abnormal mammogram and abnormal US; No left breast lump, right breast lump, nipple discharge or breast enlargement Musc Musculoskeletal: Yes arthritis; No back problems, rheumatoid arthritis, gout or joint pain Cardio Cardiovascular: No murmur, pacemaker, heart disease, atrial fibrillation, high blood pressure, heart attack, heart stent, palpitations, shortness of breat with exertion or chest pain Psych Psychiatric: No depression, anxiety or hearing voices Resp Respiratory: No shortness of breath, No sleep apnea, No cough, No COPD, No asthma, No emphysema and No wheezing Gastro Gastrointestinal: No abdominal pain, No nausea or vomiting, No diarrhea, No constipation, No blood in stool, Yes acid reflux, Yes hemorrhoids, No ulcers, No gallbladder problem and No black,tarry stools Shlomo Hematologic: No blood thinners, No blood disorders, No bleeding, No anemia and No blood clots Neuro Neurologic: Yes numbness (hands ), Yes tingling (hands ) and No weakness Exam Const General: cooperative Orientation: alert and oriented x3 HENMT Head: normal to inspection Neck Neck: normal visual inspection and full ROM Chest Chest palpation & inspection: normal inspection of the chest Resp Effort & Inspection: normal respiratory effort Auscultation: clear to auscultation bilaterally Cardio Rate: regular rate Rhythm: regular rhythm GI Inspection: non-distended Palpation: soft and nontender Skin General: no rashes or lesions noted Neuro General: patient alert and patient oriented x3 Extrem General: full ROM Psych Appearance: grossly normal Mental Status: mental status grossly normal Assessment and Plan Assessment and Plan (1) Fibroadenoma of left breast: Status: Acute Plan: The patient is a fibroadenoma of the left breast which is painful with her periods. She would like it removed. I discussed excision of this mass in the operating room. I discussed the risks of bleeding and infection. Patient understands the risks and is willing to proceed. I will perform an ultrasound- guided wire localization prior to surgery. Elvin Ortiz MD Pager: [facility] [address] [place] [address], [address] [place] [address] Office: I have examined the patient and the H&P has been reviewed. There are no clinical changes since date of exam.
[2024-07-22 08:10] LABS: Internal QC Validated? YES +Cl - CLEAR BKGD; Pregnancy, Urine Negative Negative
--- NOTE | 2024-07-22 08:26 | PRE.ANES_ITS ---
ASA Classification* ASA Classification ASA Classification: 2 Assessment & Plan Anesthesia* Anesthesia Assessment Anesthesia Assessment: Discussed sedation and/or anesthesia options, risks, benefits, and alternatives with patient/parents/legal guardian/POA. Questions invited. The patient/parents/legal guardian/POA seems to understand and agrees to proceed with anesthesia plan. Reviewed the physical assessment, medical history, allergy history and patient home medications list prior to surgery/procedure/anesthetic and documented any changes. Performed airway and anesthesia risk assessments. Anesthesia Type Anesthesia Type: General History Source History Obtained from:: Patient and Chart Anesthesia Focused Assessment* Temperature: 97.8 F Pulse Rate: 84 Blood Pressure: 130/63 Respiratory Rate: 16 Pulse Ox: 97 Oxygen Delivery Method: Room Air Airway Assessment Mouth opens: 2 cm Mallampati Score: IV Teeth Condition: Chipped/Broken (Chipped tooth #8) Neck Range of motion (ROM): Limited ROM (Somewhat decreased extension) Focused Labs Anesthesia Preop lab: CBC WBC 10.3 K/mm3 (4.4-11.0) 11/07/23 15:16 RBC 4.21 M/mm3 (4.2-5.4) 11/07/23 15:16 Hgb 12.5 g/dL (12.0-15.0) 11/07/23 15:16 Hct 38.0 % (37-47) 11/07/23 15:16 Plt Count 301 K/mm3 (150-450) 11/07/23 15:16 CHEMISTRY Potassium 3.8 mmol/L (3.5-5.1) 11/07/23 15:16 Sodium 141 mmol/L (136-145) 11/07/23 15:16 Magnesium 2.1 mg/dL (1.6-2.6) 08/05/22 11:05 BUN 14 mg/dL (7-18) 11/07/23 15:16 Creatinine 0.84 mg/dL (0.55-1.02) 11/07/23 15:16 Glucose 98 mg/dL (74-106) 11/07/23 15:16 TSH 2.15 uIU/mL (0.358-3.74) 11/07/23 15:16 COAG Urine Test Negative Negative 07/22/24 07:50 Pre-Assessment Diagnosis/Proposed Procedure Planned Operative Procedure(s): (L) Breast, Lumpectomy, Ultrasound Guided Ndl Loc in OR Anesthesia History 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 When Was Last Pacemaker Check QUESTION #4 FULL TEXT: You/Your Family Experience fever (hyperthermia) with Anesthesia Last Oral Intake Last Oral intake: Last Oral Intake NPO since 23:30 07/22/24 08:06 Meds taken in AM with sips of No 07/22/24 08:06 water? Meds patient instructed to take am of surgery PONV PONV - soda worker: PONV - soda worker Female Yes 07/15/24 10:07 HX of Motion Sickness Yes 07/15/24 10:07 HX of N/V After Surgery No 07/15/24 10:07 Non-Smoker Yes 07/15/24 10:07 Duration of Surgery greater Yes 07/15/24 10:07 than 60 minutes Number of Risk Factors 4 07/15/24 10:07 PONV Score Severe Risk 07/15/24 10:07 Height & Weight Height & Weight: Anesthesia: Height & Weight Height 5 ft 07/22/24 08:06 Weight: 90.9 kg 07/22/24 08:06 Body Mass Index (BMI) 39.1 07/22/24 08:06 Respiratory Assessment Respiratory Assessment - soda worker: Respiratory Tract Infection Hx - soda worker Hx Respiratory Tract Infection No 07/15/24 10:07 STOP Sleep Apnea STOP Sleep Apnea - soda worker: STOP Sleep Apnea - soda worker Hx Hypertension No 07/15/24 10:07 Hx Sleep Apnea No 07/15/24 10:07 CPAP BIPAP Do you snore loudly (louder No 07/15/24 10:07 than talking or can be heard Do you often feel tired/ No 07/15/24 10:07 fatigued/ sleepy during daytime? Has anyone observed you stop No 07/15/24 10:07 breathing during sleep? STOP Results Negative 07/15/24 10:07 QUESTION #5 FULL TEXT : Do you snore loudly (louder than talking or can be heard through closed doors)? 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 Specify any problems Hx of Preganancy in last 3 No 07/15/24 10:07 Months Nurse Filling Out Transfusion VCHRISTIN 07/15/24 10:07 & Questions: Date: 07/15/24 07/15/24 10:07 Time: 10:08 07/15/24 10:07 Patient unable to answer at this time (ie. confused, unrespo /Reproduction History /Reproductive History - soda worker: /Reproductive Hx- soda worker Hx Now No 07/15/24 10:07 Gestational Age (in weeks): EDC: Hx Hx Para Hx Section SAB No 07/15/24 10:07 Active Medications Active Medications: Current Medications Generic Name Dose Route Start Last Admin Trade Name Freq PRN Reason Stop Dose Admin Cefazolin Sodium 2 gm/ N/A 20 mls @ 400 mls/hr 07/22/24 09:00 IV 07/22/24 09:02 PREOP ONE [facility] Medical History Fibroadenoma of breast Abnormal mammogram Abnormal ultrasound of breast Wears glasses Anxiety Thyroid disease Arthritis Migraine headache Heartburn Non-smoker History of pain when walking Acute upper respiratory infection Contact with or suspected exposure to other viral communicable disease COVID-19 Head congestion Sinusitis, acute Otitis media history of bunionectomy Knee pain Hay fever Home Medications ?Medication ?Instructions ?Recorded ?Last Taken ?Type NK 07/01/24 Unknown History Allergy/AdvReac Type Severity Reaction Status Date / Time Seasonal Allergies: Uncoded Allergy Mild NEEDS Verified 07/22/24 08:05 FOLLOW-UP Surgical History (Updated 07/22/24 @ 08:[address] Ba Hull MD) S/P bunionectomy Hx of colonoscopy History of Social History Smoking Status: Never smoker alcohol intake: never substance use type: does not use Review of Systems (Anesthesia) ROS Narrative System reviewed and no additional complaints, except as documented.
[2024-07-22] MEDS: Cefazolin 2 GM in Syringe IV (08:41)
[2024-07-22] MEDS: Bupivacaine 0.25% 30 ML Vial (09:00)
--- NOTE | 2024-07-22 09:03 | BI_ITS ---
SURGICAL BREAST SPECIMEN RADIOGRAPH CLINICAL: Document presence of tissue clip marker in biopsy specimen. FINDINGS: Specimen shows presence of tissue clip marker. Electronically Signed: Juan Krishna MD at 9:40 EST , BI/Breast Biopsy Specimen IMPRESSION: undefined
--- NOTE | 2024-07-22 09:09 | OP.PCM_ITS ---
Operative Report (Standard) Operative Information Surgery/Procedure Performed: 1. Ultrasound-guided wire localization 2. Left partial mastectomy Surgeon: Elvin Ortiz Date of Procedure: 07/22/24 Procedure Start Time: 09:00 Procedure Stop Time: 09:10 Pre-Operative Diagnosis: Painful fibroadenoma of the left breast Post-Operative Diagnosis: Same Select all DRAINS/GRAFTS/IMPLANTS that apply: None Type of Anesthesia: General/Regional Estimated Blood Loss: 5 Specimen collected: Yes Description of specimen(s) removed: Left breast mass Description of surgery: Patient was brought to the operating room and general anesthesia was induced. The left breast was prepped and draped in usual sterile fashion. Ultrasound was used to localize the mass in the inner 9:00 portion of the left breast. Alcohol swab was used in the skin and then the localizing wire was placed into the mass under ultrasound guidance. The wire was trimmed. Next the left breast was reprepped and draped and the area over the the mass was injected with local anesthetic and incised with a scalpel. The wire was brought into the incision. The wire was followed down to the mass and the mass was excised circumferentially using electrocautery dissection. The cavity was irrigated and suctioned dry and hemostasis was obtained using electrocautery. The dermis was closed with interrupted 3-0 Vicryl sutures. The skin was closed with a running 4-0 Monocryl suture. Dermabond glue was applied. Surgical Findings: Left breast mass Ice Delivery Driver structural worker: Yes Vehicle Body Maker: Frances Tran Tasks completed by assistant shift supervisor: Retracting Complications Complications: No Admit VTE Documentation VTE Mechan Device Prophylaxis: SCD's
--- NOTE | 2024-07-22 09:12 | EX.PCM.DISCH ---
Discharge Instructions Diet Discharge Diet: No restrictions Activity Discharge Activity: May Drive and May Shower May shower in (days): 1 Weight Bearing Status: Weight bearing as tolerated Dressing / Incision Call your doctor if your incision/area has: Continuous Slow Oozing, Sudden Increased Bleeding, Increased Pain/ Swelling, Increased Redness, Foul Smelling Discharge and Swelling at the incision site Call your doctor if you observe: Fever of 101 or Higher Suture Line Care: Avoid Pulling/Pushing and Avoid Pinching/Bending Cleanse incision/area with: Soap & Water Additional Dressing/Incision Instructions:: May shower tomorrow over the glue Ibuprofen and tylenol alternating for pain control Follow Up Care Please Follow Up With: Elvin Ortiz MD When: Please call to schedule 2 week follow up appointment. [phone] Test Results: Test results from this visit will be discussed in further detail at your follow-up appointment, if applicable. Discharge Plan Admission Attending Provider: Elvin Ortiz Primary Care Provider: Javier Higgins Instructions Print Language: Micronesian Discharge Orders/Prescriptions Prescriptions: No Action NK Referrals / Follow Up: Javier Higgins MD [Primary Care Provider] - Disposition Disposition (needs filled in before D/C Order can be placed): Home, Self Care
--- NOTE | 2024-07-22 09:27 | PCM.POST.ANE ---
Anesthesia: Postop Eval I Current Vital Signs Temperature: 97.6 F Pulse Rate: 71 Blood Pressure: 109/67 Respiratory Rate: 12 Pulse Ox: 100 Oxygen Delivery Method: Simple Mask Oxygen Flow Rate (L/min): 6 Assessment Airway patent: Yes Spontaneous unlabored respirations: Yes Mental status: Awake nausea: No Vomiting: No Anesthesia Complication: No Fluid Hydration Crystalloid volume administer (ml): 500 Total IV fluid infused: 500 Progress Note Anesthesia document: Postop Eval 1 completed: Yes
--- NOTE | 2024-07-22 09:28 | POSTOPAN2_ITS ---
Anesthesia Postop Eval I Sum Postop Eval Completion status Anesthesia document: Postop Eval 1 completed: Yes Anesthesia Postop Eval I Summary Anesthesia Postop Eval I Summary: Anesthesia Postop Eval I: Assessment Summary Airway patent Yes 07/22/24 09:28 SUBCONTRACT [email or web address] Spontaneous unlabored Yes 07/22/24 09:28 SUBCONTRACT MANAGER.HBARR respirations Mental status Awake 07/22/24 09:28 SUBCONTRACT MANAGER.HBARR nausea No 07/22/24 09:28 SUBCONTRACT MANAGER.HBARR Vomiting No 07/22/24 09:28 SUBCONTRACT MANAGER.HBARR Anesthesia Postop Eval I: Fluid Summary Crystalloid volume administer 500 07/22/24 09:28 SUBCONTRACT MANAGER.HBARR (ml) Colloids volume administered ( ml) Blood Product volume administered (ml) Total IV fluid infused 500 07/22/24 09:28 SUBCONTRACT MANAGER.HBARR Anesthesia Postop Eval I: Summary Notes Anesthesia Complication No 07/22/24 09:28 SUBCONTRACT MANAGER.HBARR Anesthesia Complication Comment: Post-operative progress note
--- NOTE | 2024-07-22 09:28 | PCM.POSTANE2 ---
Anesthesia Postop Eval I Sum Postop Eval Completion status Anesthesia document: Postop Eval 1 completed: Yes Anesthesia Postop Eval I Summary Anesthesia Postop Eval I Summary: Anesthesia Postop Eval I: Assessment Summary Airway patent Yes 07/22/24 09:28 CORRECTIONAL OFFICER CHIEF.HBARR Spontaneous unlabored Yes 07/22/24 09:28 CORRECTIONAL OFFICER CHIEF.HBARR respirations Mental status Awake 07/22/24 09:28 CORRECTIONAL OFFICER CHIEF.HBARR nausea No 07/22/24 09:28 CORRECTIONAL OFFICER CHIEF.HBARR Vomiting No 07/22/24 09:28 CORRECTIONAL OFFICER CHIEF.HBARR Anesthesia Postop Eval I: Fluid Summary Crystalloid volume administer 500 07/22/24 09:28 CORRECTIONAL OFFICER CHIEF.HBARR (ml) Colloids volume administered ( ml) Blood Product volume administered (ml) Total IV fluid infused 500 07/22/24 09:28 CORRECTIONAL OFFICER CHIEF.HBARR Anesthesia Postop Eval I: Summary Notes Anesthesia Complication No 07/22/24 09:28 CORRECTIONAL OFFICER CHIEF.HBARR Anesthesia Complication Comment: Post-operative progress note
[2024-07-22] MEDS: Acetaminophen 500 MG Tablet 1000 MG PO (10:38)
--- NOTE | 2024-07-22 14:18 | POSTOPAN2_ITS ---
Anesthesia Postop Eval I Sum Postop Eval Completion status Anesthesia document: Postop Eval 1 completed: Yes Anesthesia Postop Eval I Summary Anesthesia Postop Eval I Summary: Anesthesia Postop Eval I: Assessment Summary Airway patent Yes 07/22/24 09:28 STARS ANALYTICAL LEAD.HBARR Spontaneous unlabored Yes 07/22/24 09:28 STARS ANALYTICAL LEAD.HBARR respirations Mental status Awake 07/22/24 09:28 STARS ANALYTICAL LEAD.HBARR nausea No 07/22/24 09:28 STARS ANALYTICAL LEAD.HBARR Vomiting No 07/22/24 09:28 STARS ANALYTICAL LEAD.HBARR Anesthesia Postop Eval I: Fluid Summary Crystalloid volume administer 500 07/22/24 09:28 STARS ANALYTICAL LEAD.HBARR (ml) Colloids volume administered ( ml) Blood Product volume administered (ml) Total IV fluid infused 500 07/22/24 09:28 STARS ANALYTICAL LEAD.HBARR Anesthesia Postop Eval I: Summary Notes Anesthesia Complication No 07/22/24 09:28 STARS ANALYTICAL LEAD.HBARR Anesthesia Complication Comment: Post-operative progress note Anesthesia: Postop Eval II Evaluation Mental status: Awake and Calm Pain Level: 1 nausea: No Vomiting: No Complications Anesthesia Complication: No
--- NOTE | 2024-07-22 14:18 | PCM.POSTANE2 ---
Anesthesia Postop Eval I Sum Postop Eval Completion status Anesthesia document: Postop Eval 1 completed: Yes Anesthesia Postop Eval I Summary Anesthesia Postop Eval I Summary: Anesthesia Postop Eval I: Assessment Summary Airway patent Yes 07/22/24 09:28 [employer].HBARR Spontaneous unlabored Yes 07/22/24 09:28 [employer].HBARR respirations Mental status Awake 07/22/24 09:28 [employer].HBARR nausea No 07/22/24 09:28 [employer].HBARR Vomiting No 07/22/24 09:28 [employer].HBARR Anesthesia Postop Eval I: Fluid Summary Crystalloid volume administer 500 07/22/24 09:28 [employer].HBARR (ml) Colloids volume administered ( ml) Blood Product volume administered (ml) Total IV fluid infused 500 07/22/24 09:28 [employer].HBARR Anesthesia Postop Eval I: Summary Notes Anesthesia Complication No 07/22/24 09:28 [employer].HBARR Anesthesia Complication Comment: Post-operative progress note Anesthesia: Postop Eval II Evaluation Mental status: Awake and Calm Pain Level: 1 nausea: No Vomiting: No Complications Anesthesia Complication: No
== END 2024-07-22 11:23 | disposition home or self-care (01) ==
LOC: SDC 07:35 → AC 07:37
PROVIDERS: Anesthesiology; PCP Family Medicine; Referring Provider Surgery; Visit Provider Surgery
PROC: (CPT 19301; principal; 2024-07-22 08:45)
DX: D24.2 Benign neoplasm of left breast (principal); Z86.16 Personal history of COVID-19; N60.12 Diffuse cystic mastopathy of left breast
CPT/HCPCS: 19301; 00404; 76098; 81025; 88305; A4216; J2405

== ENCOUNTER → 2024-08-07 | Outpatient (CLI) | payer OTHER, SELFPAY ==
--- NOTE | 2024-08-07 16:01 | RAD_ITS ---
STUDY: X-RAY - RIGHT ANKLE REASON FOR EXAM: Female, 49 years old. ankle injury TECHNIQUE: 3 view(s) of the ankle. COMPARISON: None. FINDINGS: Normal visualized distal tibia and fibula. Normal medial and lateral malleoli. Normal tibiotalar articulation and ankle mortise. Normal visualized talus. Tiny plantar calcaneal spur The visualized subtalar, talonavicular, calcaneocuboid and tarsal articulations are normal. The soft tissue structures are unremarkable. RAD/Ankle min 3 Views IMPRESSION: No acute fracture or other significant bony pathology. Electronically Signed: Wes Murillo MD at 16:51 EST ,
== END | disposition home or self-care (01) ==
LOC: MTRAD 16:01
PROVIDERS: PCP Family Medicine; Referring Provider Physician Assistant Surgical; Visit Provider Physician Assistant Surgical
DX: S99.919A Unspecified injury of unspecified ankle, initial encounter (principal); X58.XXXA Exposure to other specified factors, initial encounter
CPT/HCPCS: 73610

== ENCOUNTER → 2025-02-11 | Outpatient (CLI) | payer OTHER, SELFPAY ==
[2025-02-11 15:22] LABS: Absolute Lymphocyte Count 2.89 X10^3/uL (0.83-4.51); Absolute Neutrophil Count 5.2 X10^3/uL (2.0-7.7); Basophil# 0.05 X10^3/uL; Basophil% 0.6 % (0-1); Eosinophil# 0.12 X10^3/uL; Eosinophils% 1.4 % (0-5); Hematocrit 38.6 % (37-47); Lymphocyte # 2.89 X10^3/ul (0.83-4.51); Lymphocyte % 32.6 % (19-41); Mean Corp Hgb Conc 33.7 g/dL (32-36); Mean Corpuscular Hgb 29.8 pg (27.0-32.0); Mean Corpuscular Volume 88.5 fL (81-99); Mean Platelet Vol. 11.6 fl (6.2-12.0); Monocyte# 0.57 X10^3/uL; Monocyte% 6.4 % (0-10); NRBC Flagged by Analyzer 0 % (0-5); Neutrophil # 5.21 X10^3/uL (2.7-7.7); Neutrophil % 58.7 % (47-70); Platelet Count 248 K/mm3 (150-450); RBC Distribution Width CV 13.8 % (11.6-14.6); Red Blood Count 4.36 M/mm3 (4.2-5.4); White Blood Count 8.9 K/mm3 (4.4-11.0)
[2025-02-11 16:01] LABS: ALB/GLOB Ratio 1.3 RATIO (0.9-2.4); AST(SGOT) 17 U/L (<=31); Alanine Aminotransfer ALT/SGPT 13 U/L (<=34); Albumin, Serum 3.9 g/dL (3.5-5.0); Alkaline Phosphatase 78 U/L (35-104); Anion Gap 12 (5-15); BUN 9 mg/dL (4-19); BUN/Creat Ratio 11.1 RATIO (10-20); Calcium,Total 8.9 mg/dL (7.6-11.0); Carbon Dioxide 20.5 mmol/L (21.0-32.0); Chloride 107 mmol/L (98-108); Cholesterol 198 mg/dL (<=200); Creatinine, Serum 0.85 mg/dL (0.70-1.20); EST Glomerular Filtration Rate 84 (>60); Ferritin 16 ng/mL (22-378); Glucose 103 mg/dL (70-99); High Density Lipoprotein 47 mg/dL; Low Density Lipoprotein Calc. 97 mg/dL; Potassium 4.1 mmol/L (3.3-5.1); Protein, Total 6.9 g/dL (5.9-8.4); Sodium Level 139 mmol/L (133-145); Total Bilirubin 0.23 mg/dL (0.00-1.30); Triglycerides 272 mg/dL; Very Low Density Lipoprotein 54 mg/dL (5-40); Vitamin B12 263 pg/mL (180-914); Vitamin D,25 Hydroxy 9.1 ng/mL (30-100); cholesterol:hdl ratio screen 4.22
[2025-02-11 16:38] LABS: Iron 49 ug/dL (50-170)
--- OUTSIDE RECORDS SUMMARY | 2025-02-11 21:45 | XMS RPT_ITS | CCD ---
Author Organization [facility] Care Team Providers Care Detective Lieutenant Name Role Phone Dr. Harjinder Higgins Primary Care Provider [phone] Dr. Harjinder Higgins Referring Provider RAJ Childs Attending Provider Dr. Harjinder Higgins Primary Care Provider [phone] Padmini Kelley Attending Provider Unavailable Dr. Harjinder Higgins Referring Provider Dr. Wilian Witt Attending Provider [phone] Dr. Wilian Witt Other Provider [phone] LESLI PETER Attending Unavailable DR GURU HIGGINS MD Attending Marco Higgins, Christophganga Primary Care Unavailable Elvin Ortiz Referring Unavailable Elvin Ortiz Attending Unavailable Gisela, Christopher Primary Care Unavailable Farhat Childs Referring Unavailable Farhat Childs Attending Unavailable Elvin Ortiz Referring Unavailable Ranney, Christopher Primary Care Unavailable Evlin Ortiz Attending Unavailable Gisela, Christopher Primary Care Unavailable Gisela, Christkatherineer Referring Unavailable Guru Higgins Attending Unavailable Ranney, Christopher Primary Care Unavailable Ranney, Christopher Referring Unavailable CalabrElvin nur Attending Unavailable Ranney, Christopher Primary Care Unavailable Ranney, Christopher Referring Unavailable Elvin Ortiz Attending Unavailable Elvin Ortiz Consulting Unavailable Ranney, Christopher Primary Care Unavailable Calabretta Elvin Referring Unavailable CalabrElvin nur Attending Unavailable Ranney, Christopher Primary Care Unavailable Ranney, Christopher Referring Unavailable Farhat Childs Attending Unavailable Ranney, Christopher Primary Care Unavailable Ranney, Christopher Referring Unavailable Farhat Childs Attending Unavailable Ranney, Christopher Primary Care Unavailable Ranney, Christopher Referring Unavailable Elvin Ortiz Attending Unavailable Guru Higgins Primary Care Unavailable Guru Higgins Referring Unavailable Farhat Childs Attending Unavailable Guru Higgins Primary Care Unavailable Guru Higgins Attending Unavailable Lesli Peter Referring Unavailable Lesli Peter Attending Unavailable Guru Higgins Primary Care Unavailable Guru Higgins Primary Care Unavailable Lesli Peter Referring Unavailable Lesli Peter Attending Unavailable Allergies Allergy Classification Reported Allergen(s) Allergy Type Date of Onset Reaction(s) Facility (6 sources) Seasonal Allergies: Uncoded; Translations: [Seasonal Allergies: Uncoded] Allergy to substance 2 NEEDS FOLLOW-UP [facility] Medications Current Medications Medication Drug Class(es) Dates Sig (Normalized) Sig (Original) acetaminophen 325 mg oral tablet (5 sources) Start: 10-22-2017 take 1 tablet by mouth once Acetaminophen (Tylenol) 325 mg tablet Active 325 MG PO ONCE October 22, 2017 12:00am cholecalciferol 1.25 mg oral capsule (8 sources) Vitamin D Start: 02-10-2023 take 1250 ug by mouth every week Cholecalciferol (Vitamin D3) Active 1250 MCG PO EVERY WEEK February 09, 2023 11:00pm Start: 10-22-2017 End: 11-13-2018 take 1000 [IU] by mouth once Cholecalciferol (Vitamin D3) Discontinued 1000 UNIT PO ONCE October 22, 2017 12:00am November 13, 2018 5:40pm Completed/Discontinued Medications Medication Drug Class(es) Dates Sig (Normalized) Sig (Original) amoxicillin 875 mg / clavulanate 125 mg oral tablet (10 sources) Penicillin-class Antibacterial Start: 08-17-2021 End: 08-27-2021 take 1 tablet by mouth every twelve hours Amoxicillin-Pot Clavulanate (Augmentin) 875-125 mg tablet Discontinued 1 TABLET PO Q12H 30 06August 17, 2021 12:00am August 27, 2021 12:02am Start: 10-22-2017 End: 11-01-2017 take 1 tablet by mouth every twelve hours Amoxicillin-Pot Clavulanate (Augmentin) 875-125 mg tablet Discontinued 1 TABLET PO Q12H 30 06October 22, 2017 12:00am November 01, 2017 12:05am cephalexin 500 mg oral capsule (5 sources) Cephalosporin Antibacterial Start: 11-13-2018 End: 11-23-2018 take 500 mg by mouth every twelve hours Cephalexin Discontinued 500 MG PO Q12H 20 November 13, 2018 12:00am November 22, 2018 11:12pm diphenhydrAMINE citrate 38 mg / ibuprofen 200 mg oral tablet (5 sources) Histamine-1 Receptor Antagonist, Nonsteroidal Anti-inflammatory Drug Start: 11-13-2018 End: 02-10-2023 take 1 capsule by mouth once in the evening Ibuprofen-Diphenhyd ramine Cit (Advil Pm) 200-38 mg tablet Discontinued 1 CAP PO ONCE November 13, 2018 12:00am February 10, 2023 9:13am doxycycline hyclate 100 mg oral capsule (5 sources) Tetracycline-class Drug Start: 09-14-2021 End: 09-24-2021 take 100 mg by mouth twice daily Doxycycline Hyclate Discontinued 100 MG PO TWICE A DAY 30 06September 14, 2021 12:00am September 24, 2021 12:01am DULoxetine 20 mg delayed release oral capsule (5 sources) Serotonin and Norepinephrine Reuptake Inhibitor Start: 11-13-2018 End: 02-10-2023 take 1 capsule by mouth twice daily Duloxetine (Cymbalta) 20 mg capsule,delayed release(DR/EC) Discontinued 20 MG PO TWICE A DAY November 13, 2018 12:00am February 10, 2023 9:13am levonorgestrel 0.679581 mg/hr intrauterine system (5 sources) Progestin, Progestin-containin g Intrauterine Device Start: 10-22-2017 End: 11-13-2018 Levonorgestrel (Mirena) 20 mcg/24 hr (5 years) intrauterine device Discontinued 1 INSERT INTRA-UTER ONCE October 22, 2017 12:00am November 13, 2018 5:40pm nabumetone 500 mg oral tablet (5 sources) Nonsteroidal Anti-inflammatory Drug Start: 10-22-2017 End: 11-13-2018 take 500 mg by mouth twice daily Nabumetone Discontinued 500 MG PO TWICE A DAY October 22, 2017 12:00am November 13, 2018 5:40pm triamcinolone acetonide 0.055 mg/actuat metered dose nasal spray (5 sources) Corticosteroid Start: 10-27-2017 End: 11-13-2018 Triamcinolone Acetonide (Nasacort) 55 mcg aerosol,spray Discontinued 2 SPRAY INTRANASAL daily 16.9 October 27, 2017 12:00am November 13, 2018 5:41pm administer into each nostril; wait 30 seconds between sprays Vitamin B Complex (B Complex-Vitamin B12) tablet (5 sources) Start: 10-22-2017 End: 11-13-2018 take 1 tablet by mouth once daily Vitamin B Complex (B Complex-Vitamin B12) tablet Discontinued 1 TABLET PO daily October 22, 2017 1:00am November 13, 2018 6:41pm Start: 10-22-2017 End: 11-13-2018 take 1 tablet by mouth once daily Vitamin B Complex (B Complex-Vitamin B12) tablet Discontinued 1 TABLET PO daily October 22, 2017 12:00am November 13, 2018 5:41pm Problems Active Problems Problem Classification Problem Date Documented Da te Episodic/Chronic Deficiency and other anemia (1 source) Anemia, unspecified; Translations: [Anemia, unspecified] Onset: 02-10-2025 Episodic Disorders of lipid metabolism (1 source) Mixed hyperlipidemia; Translations: [Mixed hyperlipidemia] Onset: 02-10-2025 Chronic Nutritional deficiencies (1 source) Vitamin D deficiency, unspecified; Translations: [Vitamin D deficiency, unspecified] Onset: 02-10-2025 Chronic Other connective tissue disease (1 source) Pain in unspecified lower leg; Translations: [Pain in unspecified lower leg] Onset: 01-30-2025 Episodic Other screening for suspected conditions (not mental disorders or infectious disease) (4 sources) Encounter for screening for malignant neoplasm of colon; Translations: [Special screening for malignant neoplasms of colon] Onset: 06-10-2024 04-07-2023 Episodic Other upper respiratory disease (5 sources) Respiratory tract congestion; Translations: [Nasal congestion] 02-10-2023 Episodic Otitis media and related conditions (5 sources) Otitis media; Translations: [Otitis media, unspecified, unspecified ear] 02-10-2023 Episodic Viral infection (5 sources) Disease caused by 2019-nCoV; Translations: [COVID-19] 02-10-2023 Episodic Past or Other Problems Problem Classification Problem Date Documented Da te Episodic/Chronic Immunizations and screening for infectious disease (17 sources) Patient encounter status; Translations: [Encounter for screening for COVID-19] Onset: 02-13-2024 Episodic Nonmalignant breast conditions (1 source) Unspecified lump in the left breast, unspecified quadrant; Translations: [Unspecified lump in the left breast, unspecified quadrant] Onset: 06-20-2024 Episodic Other and unspecified benign neoplasm (1 source) Benign neoplasm of left breast; Translations: [Benign neoplasm of left breast] Onset: 08-20-2024 Episodic Other injuries and conditions due to external causes (1 source) Unspecified injury of unspecified ankle, initial encounter; Translations: [Unspecified injury of unspecified ankle, initial encounter] Onset: 09-05-2024 Episodic Other upper respiratory infections (13 sources) Acute upper respiratory infection; Translations: [Acute upper respiratory infection, unspecified] Onset: 08-29-2024 Episodic Unclassified (5 sources) history of bunionectomy 04-03-2023 Results Test Name Value Interpretation Reference Range Facility Urgent Care Visit Reporton 1 10-30-2023 Urgent Care Visit Report [facility] [address], [address] [place] [address] OFFICE VISIT Date of Service: 08/29/24 MR#: [id number] Acct: [id number] Name: ROCÍO NIEVES Rep #: [id number] : 1975 Provider: RAJ Steward Age/Sex: 49/F Location: [facility] Status: Signed Intake Vital Signs 08/07/24 15:51 08/29/24 12:45 Height 5 ft BP 132/76 H 130/88 H Blood Pressure Location Lt brachial Lt brachial Position Sitting Sitting Respiration 16 16 Pulse 82 67 Pulse Source NIBP NIBP Temp 98.1 F 97.8 F Temp Source Oral Oral Pulse Oximetry (%) 98 98 Oxygen Delivery Method room air room air Intake Visit Reasons: CONCERN FOR SINUS INFECTION Chief Complaint: chest congest, ALICEA, drainage, cough Saddle Maker Required: No Is patient in pain?: No Allergies Seasonal Allergies: Uncoded Allergy (Mild, Verified 08/29/24 12:47) NEEDS FOLLOW-UP Medications ???Medication ???Instructions ???Recorded ???Confirmed ???Type NK 08/29/24 08/29/24 History amoxicillin 875 mg-potassium 1 tab PO Q12H 10 days #20 tabs 08/29/24 08/29/24 Rx clavulanate 125 mg tablet Is last menstrual period known: No Post menopausal: No Patient : No Have you fallen in the past year?: No Nurse's Note: chest congest, ALICEA, drainage, cough x [address], fever. declines viral testing, believes to be sinus infection PFSH Medical History (Updated 08/07/24 @ 16:24 by Farhat ANTHONY, PA) Fibroadenoma of breast Abnormal mammogram Abnormal ultrasound of breast Wears glasses Anxiety Thyroid disease Arthritis Migraine headache Heartburn Non-smoker History of pain when walking Acute upper respiratory infection Contact with or suspected exposure to other viral communicable disease COVID-19 Head congestion Sinusitis, acute Otitis media history of bunionectomy Knee pain Hay fever Surgical History (Updated 08/02/24 @ 08:48 by Caroline Camara LPN) H/O lumpectomy S/P bunionectomy Hx of colonoscopy History of Social History Smoking Status: Never smoker alcohol intake: never substance use type: does not use HPI HPI Chief Complaint: chest congest, ALICEA, drainage, cough Details: ROCÍO NIEVES, is a 49 F who presents to the office today for complaint of headache, chest congestion and sinus pain and pressure. Patient states being concerned for a sinus infection. She has tried multiple [id number] medications with little to no relief. She denies hemoptysis, shortness of breath or difficulty breathing. No fever, chills, sweats. No nausea, vomiting or diarrhea. No loss of taste or smell. No other associated symptoms or alleviating/aggravati ng factors. ROS Const Constitutional: Positive for other (Six system ROS completed with pertinent findings in HPI otherwise normal.) Exam Const General: cooperative and healthy appearing [facility] Head: normal to inspection Ears: hearing grossly normal bilaterally, TM's normal bilaterally and EAC's normal Nose: nasal discharge purulent Face and sinus: sinus tenderness frontal and maxillary Mouth: oral mucosae normal Throat: abnormal tonsil bilaterally erythema and hypertrophy 1+ and postnasal drainage Resp Effort Inspection: normal respiratory effort Auscultation: Bilateral: Clear to Auscultation Cardio Rate: regular rate Rhythm: regular rhythm Neuro General: patient alert Psych Appearance: grossly normal Mental Status: mental status grossly normal Coding Level of Care Code Off vis,est,level 3 Diagnoses Acute sinusitis J. Assessment and Plan Assessment and Plan (1) Acute sinusitis: Status: Acute Medications: New amoxicillin-pot clavulanate 875-125 mg 1 TAB PO Q12H 20 tabs 0RF 10 days J01.90 - Acute sinusitis, unspecified Plan Augmentin as prescribed today. Encouraged to get plenty of rest, drink lots of clear liquids, and use Tylenol or Ibuprofen (unless contraindicated) for fever and comfort. Patient also educated on other symptomatic management techniques. To be seen in 7-10 days if no improvement; sooner if worsening of symptoms. Patient advised of potential red flags and when appropriate to report to the ED. Patient verbalized understanding and agreement with all the above. Clinical Quality Measures Falls Risk Screening/Assistive Devices Have you fallen in the past year?: No 08/30/24 0709 Date Farhat Escalonaign Signature: Date (if applicable) CC: Normal [facility] Ankle min 3 Viewson 08-07-20 Ankle min 3 Views [facility] Services [address] [place], [place] [address] Ankle min 3 Views MR#: [id number] Acct: [id number] Name: ROCÍO NIEVES Rep #: [id number] : 1975 F 49 From: Wes Murillo MD PCP: Dr. Guru Higgins MD Status: REG CLI Study: Ankle min 3 Views Date of Exam: 08/07/24 Exam# [id number] Ordering Dr: Farhat Montague [id number] STUDY: X-RAY - RIGHT ANKLE REASON FOR EXAM: Female, 49 years old. ankle injury TECHNIQUE: 3 view(s) of the ankle. COMPARISON: None. FINDINGS: Normal visualized distal tibia and fibula. Normal medial and lateral malleoli. Normal tibiotalar articulation and ankle mortise. Normal visualized talus. Tiny plantar calcaneal spur The visualized subtalar, talonavicular, calcaneocuboid and tarsal articulations are normal. The soft tissue structures are unremarkable. RAD/Ankle min 3 Views IMPRESSION: No acute fracture or other significant bony pathology. Electronically Signed: Wes Murillo MD at 16:51 EST Reading Location ID and State: [facility] / [place] Tel , Service support , CC: RAJ Steward; Dr. Guru Higgins MD Train Planner: Signed Normal [facility] Urgent Care Visit Reporton 1 10-07-2023 Urgent Care Visit Report [facility] [address], [address] [place] [address] OFFICE VISIT Date of Service: 08/07/24 MR#: [id number] Acct: [id number] Name: ROCÍO NIEVES Rep #: [id number] : 1975 Provider: RAJ Steward Age/Sex: 49/F Location: [facility] [place] [facility] Status: Signed Intake Vital Signs 07/22/24 08:06 08/07/24 15:51 Height 5 ft 5 ft BP 132/76 H Blood Pressure Location Lt brachial Position Sitting Respiration 16 Pulse 82 Pulse Source NIBP Temp 98.1 F Temp Source Oral Pulse Oximetry (%) 98 Oxygen Delivery Method room air Intake Visit Reasons: R ANKLE PAIN/SWELLING Chief Complaint: ankle pain Saddle Maker Required: No Is patient in pain?: Yes Allergies Seasonal Allergies: Uncoded Allergy (Mild, Verified 08/07/24 16:18) NEEDS FOLLOW-UP Medications ???Medication ???Instructions ???Recorded ???Confirmed ???Type methylprednisolone 4 mg tablets in 4 mg PO PER PKG DIR 6 days #21 tabs 08/07/24 08/07/24 Rx a dose pack (Medrol (Thom)) Is last menstrual period known: No Post menopausal: No Patient : No Have you fallen in the past year?: No Nurse's Note: right ankle pain and swelling started as intermittent and location changing now entire ankle is painful and swollen constantly. denies injury/old injury/over exertion/trauma. flexion of foot is aggrevating, no alleviating factors PFSH Medical History (Updated 08/07/24 @ 16:24 by Farhat ANTHONY, PA) Fibroadenoma of breast Abnormal mammogram Abnormal ultrasound of breast Wears glasses Anxiety Thyroid disease Arthritis Migraine headache Heartburn Non-smoker History of pain when walking Acute upper respiratory infection Contact with or suspected exposure to other viral communicable disease COVID-19 Head congestion Sinusitis, acute Otitis media history of bunionectomy Knee pain Hay fever Surgical History (Updated 08/02/24 @ 08:48 by Caroline Camara LPN) H/O lumpectomy S/P bunionectomy Hx of colonoscopy History of Social History Smoking Status: Never smoker alcohol intake: never substance use type: does not use HPI HPI Chief Complaint: ankle pain Details: ROCÍO NIEVES, is a 49 F who presents to the office today for complaint of right ankle pain. Patient states that she started having some pain 1 month ago with intermittent issues with stiffness and irritation since then. Patient states that she has not had any previous injury or any recent injuries to the same. She denies numbness, tingling or loss of range of motion to the ankle. No other associated symptoms or alleviating/aggravati ng factors. ROS Const Constitutional: Positive for other (Six system ROS completed with pertinent findings in HPI otherwise normal.) Exam Const General: cooperative and healthy appearing Skin General: no rashes or lesions noted Neuro General: patient alert Extrem General: full ROM and capillary refill normal Other: Pain to palpation right lateral ankle over the lateral malleolus with mild soft tissue swelling and no ecchymosis. Psych Appearance: grossly normal Mental Status: mental status grossly normal Coding Level of Care Code Off vis,est,level 4 Diagnoses Right ankle strain S96.645K Assessment and Plan Assessment and Plan (1) Right ankle strain: Status: Acute Orders: Orders Ankle min 3 Views Today S90.824W - Unspecified injury of unspecified ankle, initial encounter Referrals Physical Therapy Referral S96.591R - Strain of unspecified muscle and tendon at ankle and foot level, right foot, initial encounter Medications: New methylprednisolone (Medrol (Thom)) 4 mg PO PER PKG DIR 6 days 21 tabs 0RF Plan X-ray of the right ankle read and interpreted by myself find no acute osseous abnormalities, awaiting radiology interpretation at time of patient discharge. Medrol Dosepak as prescribed today. Patient also referred for physical therapy. Patient advised of RICE techniques as well as use of ibuprofen or Tylenol as needed for pain was contraindicated. Patient advised of other symptomatic management techniques as well as potential red flags and when appropriate to report to the ED. Patient verbalized understanding and agreement with all the above. Clinical Quality Measures Falls Risk Screening/Assistive Devices Have you fallen in the past year?: No 08/07/24 1629 Date Farhat Pederson Signature: Date (if applicable) CC: Normal [facility] Surgery Visit Reporton 08-02 Surgery Visit Report [facility] [address] [place] [address] OFFICE VISIT Date of Service: 08/02/24 MR#: [id number] Acct: [id number] Name: ROCÍO NIEVES Rep #: [id number] : 1975 Provider: Dr. Elvin wolfe MD Age/Sex: 49/F Location: [facility] Status: Signed Intake Vital Signs 07/22/24 08:06 Height 5 ft Intake Visit Reasons: Lumpectomy dos 07/22 Chief Complaint: lumpectomy Is patient in pain?: No Allergies Seasonal Allergies: Uncoded Allergy (Mild, Verified 08/02/24 08:48) NEEDS FOLLOW-UP Medications ???Medication ???Instructions ???Recorded ???Confirmed ???Type NK 07/01/24 08/02/24 History Subjective Details: Patient reports she is doing well with no complaints Objective Details: Incision healing well Coding Level of Care Code Global Post Op Diagnoses Fibroadenoma of left breast D24.2 [facility] Medical History Fibroadenoma of breast Abnormal mammogram Abnormal ultrasound of breast Wears glasses Anxiety Thyroid disease Arthritis Migraine headache Heartburn Non-smoker History of pain when walking Acute upper respiratory infection Contact with or suspected exposure to other viral communicable disease COVID-19 Head congestion Sinusitis, acute Otitis media history of bunionectomy Knee pain Hay fever Surgical History (Updated 08/02/24 @ 08:48 by Caroline Camara LPN) H/O lumpectomy S/P bunionectomy Hx of colonoscopy History of Social History Smoking Status: Never smoker alcohol intake: never substance use type: does not use Assessment and Plan (No Qualifiers) Assessment and Plan (1) Fibroadenoma of left breast: Status: Acute Plan: Patient had excision of the fibroadenoma of the left breast. Pathology confirmed the diagnosis. Follow-up as needed. Elvin Ortiz MD Pager: [facility] [address] [place] [address], [address] [place] [address] Office: 08/02/24920 Date Elvin Escalonaign Signature: Date (if applicable) CC: Normal [facility] Breast Biopsy Specimenon Breast Biopsy Specimen [facility] Services [address] [place], [place] [address] Breast Biopsy Specimen MR#: [id number] Acct: [id number] Name: LIZBETHROCÍOMACK WEAVERN Rep #: [id number] : 1975 F 49 From: Juan driver MD PCP: Dr. Guru Higgins MD Status: [facility] Study: Breast Biopsy Specimen Date of Exam: 07/22/24 Exam# [id number] Ordering Dr: Elvin Ortiz [id number] SURGICAL BREAST SPECIMEN RADIOGRAPH CLINICAL: Document presence of tissue clip marker in biopsy specimen. FINDINGS: Specimen shows presence of tissue clip marker. Electronically Signed: Juan Krishna MD at 9:40 EST Reading Location ID and State: [address] [place] [address] , Service support , BI/Breast Biopsy Specimen IMPRESSION: undefined CC: Dr. Elvin Ortiz MD; Dr. Guru Higgins MD Train Planner: Signed Normal [facility] Discharge Instructionon 07-12 Discharge Instruction [facility] Medical Records Department [address] [place] [address] Instructions for Home/Discharge Instructions 07/22/24 0912 MR#: [id number] Acct: [id number] Name: LIZBETHROCÍO Rep #: [id number] : 1975 49 From: Elvin Ortiz MD PCP: Dr. Guru Higgins MD Status:REG [facility] Discharge Instructions Diet Discharge Diet: No restrictions Activity Discharge Activity: May Drive and May Shower May shower in (days): 1 Weight Bearing Status: Weight bearing as tolerated Dressing / Incision Call your doctor if your incision/area has: Continuous Slow Oozing, Sudden Increased Bleeding, Increased Pain/ Swelling, Increased Redness, Foul Smelling Discharge and Swelling at the incision site Call your doctor if you observe: Fever of 101 or Higher Suture Line Care: Avoid Pulling/Pushing and Avoid Pinching/Bending Cleanse incision/area with: Soap Water Additional Dressing/Incision Instructions:: May shower tomorrow over the glue Ibuprofen and tylenol alternating for pain control Follow Up Care Please Follow Up With: Elvin Ortiz MD When: Please call to schedule 2 week follow up appointment. [phone] Test Results: Test results from this visit will be discussed in further detail at your follow-up appointment, if applicable. Discharge Plan Admission Attending Provider: Elvin Ortiz Primary Care Provider: Guru Higgins Instructions Print Language: Bulgarian Discharge Orders/Prescriptions Prescriptions: No Action NK Referrals / Follow Up: Guru Higgins MD [Primary Care Provider] - Disposition Disposition (needs filled in before D/C Order can be placed): Home, Self Care 07/22/24912 Elvin Ortiz MD CC: Dr. Guru Higgins MD Signed [facility] MR/POSTOP.[facility] 07-22-2024 MR/POSTOP.[facility] Medical Records Department [address] [place] [address] Anesthesia Postop Eval I 07/22/24926 MR#: [id number] Acct: [id number] Name: ROCÍO NIEVES Rep #: [id number] : 1975 49 From: Farida Nogueira CRNA PCP: Dr. Guru Higgins MD Status:REG [facility] Y Race: C Location: [place] [address] Anesthesia: Postop Eval I Current Vital Signs Temperature: 97.6 F Pulse Rate: 71 Blood Pressure: 109/67 Respiratory Rate: 12 Pulse Ox: 100 Oxygen Delivery Method: Simple Mask Oxygen Flow Rate (L/min): 6 Assessment Airway patent: Yes Spontaneous unlabored respirations: Yes Mental status: Awake nausea: No Vomiting: No Anesthesia Complication: No Fluid Hydration Crystalloid volume administer (ml): 500 Total IV fluid infused: 500 Progress Note Anesthesia document: Postop Eval 1 completed: Yes 07/22/24927 Date Farida Nogueira ASSISTANT PROFESSOR OF SURGERY Cosigner Signature: Date CC: Signed Normal [facility] MR/[id number] 07-22-2024 [facility] Medical Records Department [address] [place] [address] Anesthesia Postop Eval II 07/22/24 1418 MR#: [id number] Acct: [id number] Name: ROCÍO NIEVES Rep #: [id number] : 1975 49 From: Ba Hull MD PCP: Dr. Guru Higgins MD Status:[facility] Race: C [place] [facility]esthesia Postop Eval I Sum Postop Eval Completion status Anesthesia document: Postop Eval 1 completed: Yes Anesthesia Postop Eval I Summary Anesthesia Postop Eval I Summary: Anesthesia Postop Eval I: Assessment Summary Airway patent Yes 07/22/24 09:28 ASSISTANT PROFESSOR OF SURGERY.HBARR Spontaneous unlabored Yes 07/22/24 09:28 ASSISTANT PROFESSOR OF SURGERY.HBARR respirations Mental status Awake 07/22/24 09:28 ASSISTANT PROFESSOR OF SURGERY.HBARR nausea No 07/22/24 09:28 ASSISTANT PROFESSOR OF SURGERY.HBARR Vomiting No 07/22/24 09:28 ASSISTANT PROFESSOR OF SURGERY.HBARR Anesthesia Postop Eval I: Fluid Summary Crystalloid volume administer 500 07/22/24 09:28 ASSISTANT PROFESSOR OF SURGERY.HBARR (ml) Colloids volume administered ( ml) Blood Product volume administered (ml) Total IV fluid infused 500 07/22/24 09:28 ASSISTANT PROFESSOR OF SURGERY.HBARR Anesthesia Postop Eval I: Summary Notes Anesthesia Complication No 07/22/24 09:28 ASSISTANT PROFESSOR OF SURGERY.HBARR Anesthesia Complication Comment: Post-operative progress note Anesthesia: Postop Eval II Evaluation Mental status: Awake and Calm Pain Level: 1 nausea: No Vomiting: No Complications Anesthesia Complication: No 07/22/24 1419 Date Ba Escalonaignganga Signature: Date CC: Signed Normal [facility] Operative Reporton 4 Operative Report [facility] Medical Records Department [address] [place] [address] [place] [address] Operative Report 07/22/24 0909 MR#: [id number] Acct: [id number] Name: ROCÍO NIEVES Rep #: [id number] : 1975 49 From: Elvin Ortiz MD PCP: Dr. Guru Higgins MD Status:[facility] Location: [place] [address] Operative Report (Standard) Operative Information Surgery/Procedure Performed: 1. Ultrasound-guided wire localization 2. Left partial mastectomy Surgeon: Elvin Ortiz Date of Procedure: 07/22/24 Procedure Start Time: 09:00 Procedure Stop Time: 09:10 Pre-Operative Diagnosis: Painful fibroadenoma of the left breast Post-Operative Diagnosis: Same Select all DRAINS/GRAFTS/IMPLANT S that apply: None Type of Anesthesia: General/Regional Estimated Blood Loss: 5 Specimen collected: Yes Description of specimen(s) removed: Left breast mass Description of surgery: Patient was brought to the operating room and general anesthesia was induced. The left breast was prepped and draped in usual sterile fashion. Ultrasound was used to localize the mass in the inner 9:00 portion of the left breast. Alcohol swab was used in the skin and then the localizing wire was placed into the mass under ultrasound guidance. The wire was trimmed. Next the left breast was reprepped and draped and the area over the the mass was injected with local anesthetic and incised with a scalpel. The wire was brought into the incision. The wire was followed down to the mass and the mass was excised circumferentially using electrocautery dissection. The cavity was irrigated and suctioned dry and hemostasis was obtained using electrocautery. The dermis was closed with interrupted 3-0 Vicryl sutures. The skin was closed with a running 4-0 Monocryl suture. Dermabond glue was applied. Surgical Findings: Left breast mass Liner Reroll Tender behavioral pediatrician: Yes Hospitality Recruiter: Frances Tran Tasks completed by registered nurse first assistant: Retracting Complications Complications: No Admit VTE Documentation VTE Mechan Device Prophylaxis: SCD's 07/22/24 0912 Cosigner Signature (if applicable): CC: Dr. Elvin Ortiz MD; Dr. Guru Higgins MD Signed Normal [facility] ,Urineon 07-22-2024 Beta HCG ( test) Ql (U) Negative Normal [facility] Comment on above: Result Comment: Very dilute urine specimens, as indicated by a low specific gravity, may not contain medical device sales representative levels of hCG. If is still suspected, a first morning urine specimen should be collected 48 hours later and tested. Performed By: #### L [phone] #### [facility] [address] [place], [place], [address] Surgery Specimen Level Eladio 07-22-2024 Surgery Specimen Level IV -------- Patient Age/Sex Location Account Attending Physician -------- ROCÍO NIEVES 49/F [facility] [id number] Dr. Elvin Ortiz MD -------- Specimen: [id number] Received: 07/22/24 Status: FABIO Monsalve Num: [id number] Spec Type: BREAST BX Subm Dr: Dr. Elvin Ortiz MD HEADER OPERATION: Breast, lumpectomy, ultrasound guided needle localization in OR PRE-OP DIAGNOSIS: Fibroadenoma left breast TISSUE SUBMITTED: Left breast tissue -------- MICROSCOPIC DIAGNOSIS Left breast, lumpectomy: Fibroadenoma. Mild fibrocystic change. Changes of previous biopsy. No evidence of malignancy. AM. 07/24/2024 MICROSCOPIC DESCRIPTION Slides are reviewed. GROSS DESCRIPTION Received in fixative is one container labeled with the patient's name and designated Left breast tissue. The specimen consists of an unoriented piece of fibroadipose tissue with needle localization measuring 3.0 x 2.7 x 1.2cm. Sections reveal a olson solid nodule measuring 0.7cm in diameter. The entire specimen is submitted in four cassettes. SJ. 07/23/2024 TC:1 CPT:17642 -------- Patient Age/Sex Location Account Attending Physician -------- ROCÍO NIEVES 49/F [facility] [place] [id number] Dr. Elvin Ortiz MD -------- Signed (signature on file) Dr. Simon Kapoor DO 07/24/24 1158 -------- Normal [facility] Comment on above: Performed By: #### P SUIV #### [facility] [address] [place], [address] Surgery Visit Reporton 07-01 Surgery Visit Report [facility] [address] [place] [address] OFFICE VISIT Date of Service: 07/01/24 MR#: [id number] Acct: [id number] Name: ROCÍO NIEVES Rep #: [id number] : 1975 Provider: Dr. Elvin wolfe MD Age/Sex: 48/F Location: [facility] Status: Signed Intake Vital Signs 06/04/24 13:40 07/01/24 09:26 Height 5 ft 5 ft Weight: 195 lb BMI 38.0 BP 115/78 Blood Pressure Location Rt brachial Position Sitting Respiration 18 Pulse 93 Pulse Source Monitor Temp 97.4 F L Temp Source Temporal Pulse Oximetry (%) 97 Oxygen Delivery Method room air Intake Visit Reasons: DISCUSS BREAST SURGERY Chief Complaint: Discuss breast surgery Saddle Maker Required: No Accompanied by: Mother Is patient in pain?: No Allergies Seasonal Allergies: Uncoded Allergy (Mild, Verified 07/01/24 09:27) NEEDS FOLLOW-UP Medications ???Medication ???Instructions ???Recorded ???Confirmed ???Type NK 07/01/24 07/01/24 History PFSH Medical History (Updated 07/01/24 @ 09:[address] Elvin Ortiz MD) Fibroadenoma of breast Abnormal mammogram Abnormal ultrasound of breast Wears glasses Anxiety Thyroid disease Arthritis Migraine headache Heartburn Non-smoker History of pain when walking Acute upper respiratory infection Contact with or suspected exposure to other viral communicable disease COVID-19 Head congestion Sinusitis, acute Otitis media history of bunionectomy Knee pain Hay fever Surgical History History of Social History Smoking Status: Never smoker alcohol intake: never substance use type: does not use HPI HPI HPI: Patient is a 48-year-old female here for her fibroadenoma of the left breast. She would like it removed as it is causing pain. It is currently painful as she is on her period this was biopsied and came back positive for fibroadenoma. ROS General General: Yes weight change and fatigue; No appetite, colon cancer, breast cancer or weakness HEENT HEENT: No difficulty swallowing, eye injury, eye surgery, swollen glands or hoarseness Endo Endocrine: No thyroid disease, diabetes mellitus, thyroid cancer, Hair loss, heat intolerance or cold intolerance Skin Skin: No rash or changing moles Breast Breast: Yes breast pain, abnormal mammogram and abnormal US; No left breast lump, right breast lump, nipple discharge or breast enlargement Musc Musculoskeletal: Yes arthritis; No back problems, rheumatoid arthritis, gout or joint pain Cardio Cardiovascular: No murmur, pacemaker, heart disease, atrial fibrillation, high blood pressure, heart attack, heart stent, palpitations, shortness of breat with exertion or chest pain Psych Psychiatric: No depression, anxiety or hearing voices Resp Respiratory: No shortness of breath, No sleep apnea, No cough, No COPD, No asthma, No emphysema and No wheezing Gastro Gastrointestinal: No abdominal pain, No nausea or vomiting, No diarrhea, No constipation, No blood in stool, Yes acid reflux, Yes hemorrhoids, No ulcers, No gallbladder problem and No black,tarry stools Shlomo Hematologic: No blood thinners, No blood disorders, No bleeding, No anemia and No blood clots Neuro Neurologic: Yes numbness (hands ), Yes tingling (hands ) and No weakness Exam Const General: cooperative Orientation: alert and oriented x3 HENMT Head: normal to inspection Neck Neck: normal visual inspection and full ROM Chest Chest palpation inspection: normal inspection of the chest Resp Effort Inspection: normal respiratory effort Auscultation: clear to auscultation bilaterally Cardio Rate: regular rate Rhythm: regular rhythm GI Inspection: non-distended Palpation: soft and nontender Skin General: no rashes or lesions noted Neuro General: patient alert and patient oriented x3 Extrem General: full ROM Psych Appearance: grossly normal Mental Status: mental status grossly normal Assessment and Plan Assessment and Plan (1) Fibroadenoma of left breast: Status: Acute Plan: The patient is a fibroadenoma of the left breast which is painful with her periods. She would like it removed. I discussed excision of this mass in the operating room. I discussed the risks of bleeding and infection. Patient understands the risks and is willing to proceed. I will perform an ultrasound-guided wire localization prior to surgery. Elvin Ortiz MD Pager: [facility] [address] [place] [address], [address] [place] [address] Office: Coding Level of Care Code Off vis,est,level 3 Diagnoses Fibr (more content not included)... Normal [facility] Urgent Care Visit Reporton 1 Urgent Care Visit Report [facility] [address], [address] [place] [address] OFFICE VISIT Date of Service: 06/12/24 MR#: [id number] Acct: [id number] Name: ROCÍO NIEVES Rep #: [id number] : 1975 Provider: RAJ Steward Age/Sex: 48/F Location: [facility] [place] [facility] Status: Signed Intake Vital Signs 06/04/24 13:40 06/12/24 08:23 Height 5 ft Weight: 199 lb BMI 38.8 BP 136/80 H 122/74 H Blood Pressure Location Rt brachial Lt brachial Position Sitting Sitting Respiration 18 15 Pulse 102 H 98 Pulse Source Monitor NIBP Temp 97.2 F L 98.7 F Temp Source Temporal Temporal Pulse Oximetry (%) 97 98 Oxygen Delivery Method room air room air Intake Visit Reasons: CONCERN FOR SINUS INFECTION Chief Complaint: cough, face pain, congestion, diarrhea Saddle Maker Required: No Is patient in pain?: No Allergies Seasonal Allergies: Uncoded Allergy (Mild, Verified 06/12/24 08:26) NEEDS FOLLOW-UP Medications ???Medication ???Instructions ???Recorded ???Confirmed ???Type azithromycin 250 mg tablet See Rx Instructions PO .COMPLEX #6 06/12/24 06/12/24 Rx tabs benzonatate 100 mg capsule 200 mg (2 x 100 mg) PO TID PRN 06/12/24 06/12/24 Rx cough #30 caps Is last menstrual period known: No Post menopausal: No Patient : No Have you fallen in the past year?: No Nurse's Note: cough, congestion, face pain, diarrhea x 5 days. [facility] Medical History (Updated 06/12/24 @ 08:51 by RAJ Adler) Abnormal mammogram Abnormal ultrasound of breast Wears glasses Anxiety Thyroid disease Arthritis Migraine headache Heartburn Non-smoker History of pain when walking Acute upper respiratory infection Contact with or suspected exposure to other viral communicable disease COVID-19 Head congestion Sinusitis, acute Otitis media history of bunionectomy Knee pain Hay fever Surgical History History of Social History (Updated 06/04/24 @ 13:40 by Caroline Camara LPN) Smoking Status: Never smoker alcohol intake: never substance use type: does not use HPI HPI Chief Complaint: cough, face pain, congestion, diarrhea Details: ROCÍO NIEVES, is a 48 F who presents to the office today for possible sinus faction. Patient states having increased sinus congestion/pressure and pain as well as congestion worsening over the past 5 days. Patient does state that she started having diarrhea yesterday. She denies hemoptysis, shortness of breath or difficult breathing. No loss of taste or smell. No nausea or vomiting. No other associated symptoms or alleviating/aggravati ng factors. ROS Const Constitutional: Positive for other (Six system ROS completed with pertinent findings in HPI otherwise normal.) Exam Const General: cooperative and healthy appearing HENMT Head: normal to inspection Ears: hearing grossly normal bilaterally, TM's normal bilaterally and EAC's normal Nose: nasal discharge purulent Face and sinus: sinus tenderness frontal and maxillary Mouth: oral mucosae normal Throat: abnormal tonsil bilaterally erythema and hypertrophy 1+ and postnasal drainage Resp Effort Inspection: normal respiratory effort Auscultation: Bilateral: Clear to Auscultation Cardio Palpation: normal PMI Rate: regular rate Rhythm: regular rhythm Neuro General: patient alert and CN's II-XI intact bilaterally Psych Appearance: grossly normal Mental Status: mental status grossly normal Results POC E[place]ICO Covid FluAB PCR POC [place] Covid PCR Not Detected Last Edit by Lili Anand on 06/12/24 09:16 POC E[place] FLU NOT DETECTED FLU A B Last Edit by Lili Anand on 06/12/24 09:16 Coding Level of Care Code Off vis,est,level 3 Diagnoses Contact with or suspected exposure to other viral communicable disease Z20.828 Acute sinusitis J01.90 Assessment and Plan Assessment and Plan (1) Contact with or suspected exposure to other viral communicable disease: Status: Acute (2) Acute sinusitis: Status: Acute Orders: Orders POC Enrico Covid FLUAB PCR Today Medications: New azithromycin take 500 mg today (day 1), then 250 mg for 4 days (days 2-5) PO 6 tabs 0RF benzonatate 200 mg (2 x 100 mg) PO TID PRN 30 caps 0RF cough Plan Azithromycin and benzonatate as prescribed today. Patient tested negative for COVID in the office today. Encouraged to get plenty of rest, drink lots of clear liquids, and use Tylenol or Ibuprofen (unless contraindicated) for fever and comfort. Patient also educated on other symptomatic management techniques. To be seen in 7-10 days if no improvement; sooner if worsening of symptoms. Patient advised of potential red flags and when appropriate to report to the ED. Patient atif (more content not included)... Normal [facility] Surgery Specimen Level Eladio 06-04-2024 Surgery Specimen Level IV -------- Patient Age/Sex Location Account Attending Physician -------- ROCÍO NIEVES 48/F [facility] [id number] Dr. Elvin Ortiz MD -------- Specimen: [id number] Received: 06/04/24 Status: FABIO Bello Num: [id number] Spec Type: BREAST BX Subm Dr: Dr. Elvin Ortiz MD HEADER OPERATION: Ultrasound guided needle core biopsy left breast PRE-OP DIAGNOSIS: Abnormal mammogram TISSUE SUBMITTED: Left breast biopsy Ischemic Time: 1 minute Fixation Time: 30 hours -------- MICROSCOPIC DIAGNOSIS Left breast, ultrasound guided needle core biopsy: Fibroadenoma. Negative for atypia or malignancy. See comment. CHAZ/ 06/06/2024 COMMENT Correlation with clinical, radiologic findings and appropriate follow up are necessary. MICROSCOPIC DESCRIPTION Slides are reviewed. GROSS DESCRIPTION Received in fixative is one container labeled with the patient's name and designated Left breast biopsy. The specimen consists of multiple elongated fragments of olson-yellow fibroadipose tissue that in aggregate measure 1.5 x 0.3 x 0.1 cm. The specimen is totally submitted in one cassette. 06/05/2024 TC:1 CPT:98686 -------- Patient Age/Sex Location Account Attending Physician -------- ROCÍO NIEVES 48/F [facility] [id number] Dr. Elvin Ortiz MD -------- Signed (signature on file) Dr. Caleb Harden MD 06/06/24 1051 -------- Normal [facility] Comment on above: Performed By: #### P SUIV #### [facility] [address] [place], [address] Surgery Visit Reporton 06-04 Surgery Visit Report [facility] [address] [place] [address] OFFICE VISIT Date of Service: 06/04/24 MR#: [id number] Acct: [id number] Name: ROCÍO NIEVES Rep #: [id number] : 1975 Provider: Dr. Elvin wolfe MD Age/Sex: 48/F Location: [facility] Status: Signed Intake Vital Signs 04/07/23 08:37 06/04/24 13:40 Height 5 ft 1 in 5 ft Weight: 199 lb BMI 38.8 BP 136/80 H Blood Pressure Location Rt brachial Position Sitting Respiration 18 Pulse 102 H Pulse Source Monitor Temp 97.2 F L Temp Source Temporal Pulse Oximetry (%) 97 Oxygen Delivery Method room air Intake Visit Reasons: BIRADS 4 Chief Complaint: BIRADS 4 Accompanied by: Is patient in pain?: No Allergies Seasonal Allergies: Uncoded Allergy (Mild, Verified 06/04/24 13:41) NEEDS FOLLOW-UP [facility] Medical History (Updated 06/04/24 @ 13:40 by Caroline Camara LPN) Abnormal mammogram Abnormal ultrasound of breast Wears glasses Anxiety Thyroid disease Arthritis Migraine headache Heartburn Non-smoker History of pain when walking Acute upper respiratory infection Contact with or suspected exposure to other viral communicable disease COVID-19 Head congestion Sinusitis, acute Otitis media history of bunionectomy Knee pain Hay fever Surgical History History of Social History (Updated 06/04/24 @ 13:40 by Caroline Camara LPN) Smoking Status: Never smoker alcohol intake: never substance use type: does not use HPI HPI HPI: Patient is a 48-year-old female here for mass in the upper inner quadrant of the left breast. This was found on mammogram. She says that she is occasionally having left breast pain with her periods ROS General General: Yes weight change and fatigue; No appetite, colon cancer, breast cancer or weakness HEENT HEENT: No difficulty swallowing, eye injury, eye surgery, swollen glands or hoarseness Endo Endocrine: No thyroid disease, diabetes mellitus, thyroid cancer, Hair loss, heat intolerance or cold intolerance Skin Skin: No rash or changing moles Breast Breast: Yes breast pain, abnormal mammogram and abnormal US; No left breast lump, right breast lump, nipple discharge or breast enlargement Musc Musculoskeletal: Yes arthritis; No back problems, rheumatoid arthritis, gout or joint pain Cardio Cardiovascular: No murmur, pacemaker, heart disease, atrial fibrillation, high blood pressure, heart attack, heart stent, palpitations, shortness of breat with exertion or chest pain Psych Psychiatric: No depression, anxiety or hearing voices Resp Respiratory: No shortness of breath, No sleep apnea, No cough, No COPD, No asthma, No emphysema and No wheezing Gastro Gastrointestinal: No abdominal pain, No nausea or vomiting, No diarrhea, No constipation, No blood in stool, Yes acid reflux, Yes hemorrhoids, No ulcers, No gallbladder problem and No black,tarry stools Shlomo Hematologic: No blood thinners, No blood disorders, No bleeding, No anemia and No blood clots Neuro Neurologic: Yes numbness (hands ), Yes tingling (hands ) and No weakness Exam Const General: cooperative Orientation: alert and oriented x3 HENMT Head: normal to inspection Neck Neck: normal visual inspection and full ROM Chest Chest palpation inspection: normal inspection of the chest Resp Effort Inspection: normal respiratory effort Auscultation: clear to auscultation bilaterally Cardio Rate: regular rate Rhythm: regular rhythm GI Inspection: non-distended Palpation: soft and nontender Skin General: no rashes or lesions noted Neuro General: patient alert and patient oriented x3 Extrem General: full ROM Psych Appearance: grossly normal Mental Status: mental status grossly normal Office Procedures Biopsy Provider Documentation The left breast was investigated using ultrasound and the mass was identified. Inferior to this an area of skin was prepped and then injected with local anesthetic. A small reza was made with a scalpel. 14-gauge biopsy needle was placed into the mass under ultrasound guidance several times. Next a clip was placed into the mass under ultrasound guidance. Steri-Strip and bandage were placed over the incision. Patient tolerated the procedure well. Alert Yamilet Yes Biopsy Breast Biopsy: 12049 US Guidance Procedure Time Out Time Out Informed consent given: Yes Consent signed: Yes Time out checklist: patient, procedure, site marked/identified, positioning of patient, supplies available, allergies confirmed and team agrees on procedure Time out staff in room: Yes Time out verified: Yes Time out date: 06/04/24 Time out time: 13:55 Assessmen (more content not included)... Normal [facility] Breast Limited Unilateralon 05-29-2024 Breast Limited Unilateral [facility] Services [address], [place] [address] Breast Limited Unilateral MR#: [id number] Acct: [id number] Name: ROCÍO NIEVES Rep #: [id number] : 1975 F 48 From: Juan driver MD PCP: Dr. Guru Higgins MD Status: REG [facility] Study: Breast Limited Unilateral Date of Exam: Exam# [id number] Ordering Dr: Lesli Peter MD [id number] STUDY: ULTRASOUND BREAST - LEFT REASON FOR EXAM: Female, 48 years old. Abnormal screening mammogram. TECHNIQUE: Axial and longitudinal images of the LEFT breast were performed with a high resolution ultrasound transducer. # OF IMAGES: 11 COMPARISON: Comparison is made with prior mammogram dated May 21, 2024. FINDINGS: LEFT Breast: The mammographic abnormality corresponds to a 1 cm x 0.9 cm x 0.5 cm well-defined hypoechoic nodule at the 10:00 position of the breast at 7 cm from the nipple. This most likely represents a fibroadenoma. Biopsy recommended. US/Breast Limited Unilateral IMPRESSION: The mammographic abnormality corresponds to a 1 cm x 0.9 cm x 0.5 cm well-defined hypoechoic nodule at the 10:00 position of the breast at 7 cm from the nipple. Biopsy recommended. ASSESSMENT CATEGORY: BIRADS Category 4: Suspicious - Biopsy Should Be Considered. A letter regarding these results will be sent to the patient by the facility within 30 days. Electronically Signed: Juan Krishna MD at 13:48 EDT Reading Location ID and State: [facility] / [place] , Service support , CC: Dr. Guru Higgins MD; Dr. Lseli Peter MD Train Planner: Signed Normal [facility] SCRN MAMM (CAD)W/VELMA BILATo n 05-21-2024 SCRN MAMM (CAD)W/VELMA BILAT [facility] Imaging Services [address], [place] [id number] SCRN MAMM (CAD)W/VELMA BILAT MR#: [id number] Acct: [id number] Name: ROCÍO NIEVES Rep #: [id number] : 1975 F 48 From: Juan driver MD PCP: Dr. Guru Higgins MD Status: REG CLI Study: SCRN MAMM (CAD)W/VELMA BILAT Date of Exam: 05/12 Exam# [id number] Ordering Dr: LESLI PETER [id number] MAMMOGRAPHY - BILATERAL SCREENING REASON FOR EXAM: Female, 48 years old. Routine annual screening examination. PERTINENT HISTORY: Grandmother with breast cancer. TECHNIQUE: Digital bilateral breast velma (3D mammographic acquisition) in the CC and MLO projections. 2-D mediolateral oblique (MLO) and craniocaudad (CC) views of both breasts were obtained. CAD: Full Field Digital Mammography with Computer Added Detection was performed. COMPARISON: Comparison is made with prior study of May 17, 2023 and May 06, 2022. FINDINGS: Breast Composition: The breasts are heterogeneously dense, which may obscure small masses. There is a 1.4 cm x 1.3 cm nodule in the deep central medial aspect of the left breast. Correlation with ultrasound is recommended. Stable small benign-appearing bilateral axillary lymph nodes. No other significant abnormalities are identified. BI/SCRN MAMM (CAD)W/VELMA BILAT IMPRESSION: 1.4 cm x 1.3 cm nodule in the deep central medial aspect of the left breast. Correlation with ultrasound is recommended. ASSESSMENT CATEGORY: BIRADS Category 0: Incomplete. Need additional imaging evaluation. A letter regarding these results will be sent to the patient by the facility within 30 days. Approximately 10% of breast cancers are not detected by mammography. A normal mammogram should not delay biopsy of a clinically suspicious abnormality. [id number] Electronically Signed: Juan Krishna MD at 15:36 EDT , CC: Dr. Guru Higgins MD; LESLI PETER Train Planner: Signed Normal [facility] THINPREP PAP SMEARon 024 THINPREP PAP SMEAR Gynecologic Cytology Report Case: [id number] Authorizing Provider: Lesli Peter MD Collected: 02/13/2024 08:44 AM Ordering Location: [place] [facility]TER Received: 02/14/2024 08:44 AM Volusion. Draw Site First Screen: Rosetta Fischer TECHNOLOGIST Specimen: THINPREP PAP SMEAR, Cervix / Endocervix Satisfactory for evaluation; endocervical/transfor mation zone component present Negative for intraepithelial lesion or malignancy The Pap smear is a screening test for the detection of cervical cancer and its precursor lesions. False positive and false negative results can occur. The test should be performed at regular intervals, and positive results should be confirmed before definitive therapy. Additional testing methods may be helpful in detecting abnormalities or in clinical management. The specimen has been analyzed by the ThinPrep imaging system, an automated imaging and review system which assists the laboratory in evaluating cells on ThinPrep tests. Following automated imaging selected christine from every slide are reviewed by a composition professor. Specimen processing and Primary Screening performed at: [facility] - [address] [place] [address] HPV 16 : Negative HPV 18 : Negative HPV, Other HR Types : Negative Assay performed using Diana Deshawn 4800 system utilizing Real-Time PCR to amplify target HPV DNA. This system specifically identifies HPV16 and HPV18 while concurrently detecting the other twelve high risk types (31,33,35,39,45,51,52 ,56,58,59,66,68). These HPV results have been electronically added to this report as an aid for patient management. HPV testing performed at: [facility] - [address] [place] [address] - Normal [facility] Comment on above: Performed By: #### [id number] #### [facility] [address] [place] [address] Benigno Quintero M.D. [id number] Basophil percentageOrdered B y: Harjinder Higgins on 11-07-2023 Basophil percentage 0 SEEN /hpf 0-5 [facility] Bilirubin [Mass/Vol] 0.40 mg/dL 0.20-1.00 [facility] Comment on above: For patients on eltr ombopag therapy, use of Dimension [place] TBIL is not recommended. Chloride [Moles/Vol] 110 mmol/L 98-107 [facility] Glucose [Mass/Vol] 98 mg/dL 74-106 [facility] Hemoglobin (Bld) [Mass/Vol] 12.5 g/dL 12.0-15.0 [facility] Potassium [Moles/Vol] 3.8 mmol/L 3.5-5.1 [facility] Protein [Mass/Vol] 7.1 g/dL 6.4-8.2 [facility] Sodium [Moles/Vol] 141 mmol/L 136-145 [facility] WBC (Bld) [#/Vol] 10.3 10*3/uL 4.4-11.0 [facility] Bilirubin Test strip Ql (U)O rdered By: Harjinder Higgins on 11-07-2023 Bilirubin Ql (U) Negative Negative [facility] Calcium oxalate crystals det ection in urine sediment by light microscopyOrdered By: Harjinder Higgins on 11-07-2023 Calcium oxalate crystals LM Ql (Urine sed) 1+ /hpf [facility] Culture, urineOrdered By: Vikki Higgins on 11-07-2023 Bacteria identified Cx Nom (U) Mixed Gram Pos & Gram Neg Org [facility] Determination of erythrocyte mean corpuscular volume (MCV)Ordered By: Harjinder Higgins on 11-07-2023 MCV (RBC) [Entitic vol] 90.3 fL 81-99 [facility] Erythrocyte distribution wid th ratioOrdered By: Harjinder Higgins on 11-07-2023 Erythrocyte distribution width (RBC) [Ratio] 13.5 % 11.6-14.6 [facility] Erythrocyte distribution wid th standard deviationOrdered By: Harjinder Higgins on 11-07-2023 Erythrocyte distribution width (RBC) [Entitic vol] 44.6 fL 35.1-43.9 [facility] Erythrocyte sedimentation ra teOrdered By: Harjinder Higgins on 11-07-2023 ESR (Bld) [Velocity] 11 mm/h 0-30 [facility] Hematocrit Auto (Bld) [Volum e fraction]Ordered By: Harjinder Higgins on 11-07-2023 Hematocrit (Bld) [Volume fraction] 38.0 % 37-47 [facility] Iron measurement (mass/mass) Ordered By: Harjinder Higgins on 11-07-2023 Iron (Unsp spec) [Mass/Mass] 61 ug/dL 50-170 [facility] Ketones Test strip Ql (U)Ord ered By: Harjinder Higgins on 11-07-2023 Ketones Ql (U) Negative Negative [facility] Laboratory - Chemistry and C hemistry - challengeOrdered By: Harjinder Higgins on 11-07-2023 Albumin/Globulin [Mass ratio] 1.0 {ratio} 0.9-2.4 [facility] ALP [Catalytic activity/Vol] 69 U/L 45-117 [facility] ALT [Catalytic activity/Vol] 21 U/L 13-56 [facility] CO2 [Moles/Vol] 25.0 mmol/L 21.0-32.0 [facility] Cobalamin (Vitamin B12) [Mass/Vol] 254 pg/mL 211-911 [facility] Ferritin [Mass/Vol] 10 ng/mL 8-252 [facility] Globulin (S) [Mass/Vol] 3.5 g/dL 2.2-4.2 [facility] Urea nitrogen/Creatinine [Mass ratio] 16.7 mg/mg 10-20 [facility] Laboratory - Hematology and Cell countsOrdered By: Harjinder Higgins on 11-07-2023 MCH (RBC) [Entitic mass] 29.7 pg 27.0-32.0 [facility] MCHC (RBC) [Mass/Vol] 32.9 g/dL 32-36 [facility] Platelet mean volume (Bld) [Entitic vol] 10.9 fL 6.2-12.0 [facility] Platelets (Bld) [#/Vol] 301 10*3/uL 150-450 [facility] Mucus LM Ql (Urine sed)Order ed By: Harjinder Higgins on 11-07-2023 Mucus Ql (Urine sed) 0 SEEN /hpf [facility] Nitrite Test strip Ql (U)Ord ered By: Harjinder Higgins on 11-07-2023 Nitrite Ql (U) Negative Negative [facility] No Panel InformationOrdered By: Harjinder Higgins on 11-07-2023 Estimated GFR (MDRD) Amer 93 mL/min >60 [facility] Comment on above: GFR Calc Estimated GFR (MDRD) Non-Af Amer 77 mL/min >60 [facility] Comment on above: Non- GFR Calc Urine RBC 0-5 SEEN /hpf 0-5 [facility] Protein Test strip Ql (U)Ord ered By: Harjinder Higgins on 11-07-2023 Protein Ql (U) 15 mg/dl Negative [facility] RBC Auto (Bld) [#/Vol]Ordere d By: Harjinder Higgins on 11-07-2023 RBC (Bld) [#/Vol] 4.21 10*6/uL 4.2-5.4 [facility] Serum or plasma calcium carlos alberto urement (mass/volume)Ordered By: Harjinder Higgins on 11-07-2023 Calcium [Mass/Vol] 8.8 mg/dL 8.5-10.1 [facility] Serum or plasma creatinine m easurement (mass/volume)Ordered By: Harjinder Higgins on 11-07-2023 Creatinine [Mass/Vol] 0.84 mg/dL 0.55-1.02 [facility] Comment on above: The validity of the calculated GFR & GFRAA in patients over 70 years has not been determined. Clinical correlation is essential. Serum or plasma thyroid stim ulating hormone (TSH) measurement (units/volume)Ordered By: Harjinder Higgins on 11-07-2023 TSH Qn 2.15 uIU/mL 0.358-3.74 [facility] Serum or plasma urea nitroge n measurement (mass/volume)Ordered By: Harjinder Higgins on 11-07-2023 Urea nitrogen [Mass/Vol] 14 mg/dL 7-18 [facility] Squamous epithelial cells de tection in urine sediment by light microscopyOrdered By: Harjinder Higgins on 11-07-2023 Epithelial cells.squamous LM Ql (Urine sed) 0-5 SEEN /hpf 5-10 [facility] Thin prep Papanicolaou smear with manual screeningOrdered By: Harjinder Higgins on 11-07-2023 Thin prep Papanicolaou smear with manual screening 3.6 g/dL 3.2-5.0 [facility] Thin prep Papanicolaou smear with manual screening 14 U/L 15-37 [facility] Thin prep Papanicolaou smear with manual screening 6 5-15 [facility] Urine blood detectionOrdered By: Harjinder Higgins on 11-07-2023 RBC Ql (U) 25 /ul Negative [facility] Urine clarityOrdered By: John Higgins on 11-07-2023 Clarity (U) Clear Clear [facility] Urine color determinationOrd ered By: Harjinder Higgins on 11-07-2023 Color (U) Yellow Yellow [facility] Urine glucose detectionOrder ed By: Harjinder Higgins on 11-07-2023 Glucose Ql (U) Normal mg/dl Normal [facility] Urine leukocyte esterase det ection by dipstickOrdered By: Harjinder Higgins on 11-07-2023 Leukocyte esterase Test strip Ql (U) Negative Negative [facility] Urine pHOrdered By: Sammy Higgins on 11-07-2023 pH (U) 5.0 [pH] 5.0 - 8.0 [facility] Urine sediment bacteria coun t by microscopy (number/high power field)Ordered By: Harjinder Higgins on 11-07-2023 Bacteria LM.HPF (Urine sed) [#/Area] 0 /[HPF] None Seen [facility] Urine specific gravity measu rementOrdered By: Harjinder Higgins on 11-07-2023 Specific gravity (U) [Rel density] 1.025 1.002-1.030 [facility] Urine urobilinogen measureme ntOrdered By: Harjinder Higgins on 11-07-2023 Urobilinogen Ql (U) Normal mg/dl Normal [facility] Whole blood hemoglobin A1c/t otal hemoglobin ratio (mass fraction)Ordered By: Harjinder Higgins on 11-07-2023 HbA1c (Bld) [Mass fraction] 5.6 % 3.8-5.6 [facility] Comment on above: Normal < 5.7 % Predi abetic 5.7 - 6.4 % Diabetic >or= 6.5 % Please note range changes. Basophil percentageOrdered B y: Harjinder Higgins on 11-06-2023 Basophil percentage 0 SEEN /hpf 0-5 [facility] Bilirubin Test strip Ql (U)O rdered By: Harjinder Higgins on 11-06-2023 Bilirubin Ql (U) Negative Negative [facility] Calcium oxalate crystals det ection in urine sediment by light microscopyOrdered By: Harjinder Higgins on 11-06-2023 Calcium oxalate crystals LM Ql (Urine sed) 1+ /hpf [facility] Culture, urineOrdered By: Vikki Higgins on 11-06-2023 Bacteria identified Cx Nom (U) Mixed Gram Pos & Gram Neg Org [facility] Ketones Test strip Ql (U)Ord ered By: Harjinder Higgins on 11-06-2023 Ketones Ql (U) 5 mg/dl Negative [facility] Mucus LM Ql (Urine sed)Order ed By: Harjinder Higgins on 11-06-2023 Mucus Ql (Urine sed) 0 SEEN /hpf [facility] Nitrite Test strip Ql (U)Ord ered By: Harjinder Higgins on 11-06-2023 Nitrite Ql (U) Negative Negative [facility] No Panel InformationOrdered By: Harjinder Higgins on 11-06-2023 Urine RBC 10-25 SEEN /hpf 0-5 [facility] Protein Test strip Ql (U)Ord ered By: Harjinder Higgins on 11-06-2023 Protein Ql (U) 30 mg/dl Negative [facility] Squamous epithelial cells de tection in urine sediment by light microscopyOrdered By: Harjinder Higgins on 11-06-2023 Epithelial cells.squamous LM Ql (Urine sed) 5-10 SEEN /hpf 5-10 [facility] Urine blood detectionOrdered By: Harjinder Higgins on 11-06-2023 RBC Ql (U) 150 /ul Negative [facility] Urine clarityOrdered By: John Higgins on 11-06-2023 Clarity (U) Sl. Cloudy Clear [facility] Urine color determinationOrd ered By: Harjinder Higgins on 11-06-2023 Color (U) Yellow Yellow [facility] Urine glucose detectionOrder ed By: Harjinder Higgins on 11-06-2023 Glucose Ql (U) Normal mg/dl Normal [facility] Urine leukocyte esterase det ection by dipstickOrdered By: Harjinder Higgins on 11-06-2023 Leukocyte esterase Test strip Ql (U) Negative Negative [facility] Urine pHOrdered By: Sammy Higgins on 11-06-2023 pH (U) 5.0 [pH] 5.0 - 8.0 [facility] Urine sediment bacteria coun t by microscopy (number/high power field)Ordered By: Harjinder Higgins on 11-06-2023 Bacteria LM.HPF (Urine sed) [#/Area] 0 /[HPF] None Seen [facility] Urine specific gravity measu rementOrdered By: Harjinder Higgins on 11-06-2023 Specific gravity (U) [Rel density] 1.025 1.002-1.030 [facility] Urine urobilinogen measureme ntOrdered By: Harjinder Higgins on 11-06-2023 Urobilinogen Ql (U) Normal mg/dl Normal [facility] Laboratory - Chemistry and C hemistry - challengeOrdered By: Harjinder Higgins on 02-02-2023 Cobalamin (Vitamin B12) [Mass/Vol] 592 pg/mL 211-911 [facility] No Panel InformationOrdered By: Harjinder Higgins on 02-02-2023 Vitamin D 25-Hydroxy 15.9 ng/mL [facility] Comment on above: Vitamin D 25(OH) Sta tus Range Deficiency <20 ng/mL (50nmol/L) Insufficiency 20 - 30 ng/mL (50 - 75 nmol/L) Sufficiency 30 - 100 ng/mL (75 - 250 nmol/L) Toxicity >100 ng/mL (>250 nmol/L) Absolute lymphocyte counton 08-05-2022 Lymphocytes Auto (Unsp spec) [#/Vol] 2.25 10*3/uL 0.83-4.51 [facility] Work Phone: Basophil percentageon 2021 Basophils/100 WBC (Bld) 0.4 % 0-1 [facility] Work Phone: Chloride [Moles/Vol] 109 mmol/L 98-107 [facility] Work Phone: Cholesterol [Mass/Vol] 205 mg/dL <[address] [facility] Work Phone: Comment on above: <200 mg/dL Desirable 200-240 mg/dL Borderline >240 mg/dL High Risk Eosinophils/100 WBC (Bld) 1.2 % 0-5 [facility] Work Phone: Glucose [Mass/Vol] 90 mg/dL 74-106 [facility] Work Phone: Neutrophils (Bld) [#/Vol] 4.9 10*3/uL 2.0-7.7 [facility] Work Phone: Neutrophils/100 WBC (Bld) 63.2 % 47-70 [facility] Work Phone: Potassium [Moles/Vol] 4.2 mmol/L 3.5-5.1 [facility] Work Phone: Sodium [Moles/Vol] 140 mmol/L 136-145 [facility] Work Phone: Triglyceride [Mass/Vol] 186 mg/dL <199 [facility] Work Phone: Comment on above: The drugs N-Acetylcy steine and Metamizole may falsely depress this assay.Serum Triglycerides Reference Interval Normal <150 mg/dL Borderline high 150 - 199 mg/dL High 200 - 499 mg/dL Very High > or = 500 mg/dL WBC (Bld) [#/Vol] 7.7 10*3/uL 4.4-11.0 [facility] Work Phone: Bilirubin Test strip Ql (U)o n 08-05-2022 Bilirubin Ql (U) 1 mg/dL Negative [facility] Work Phone: Comment on above: COLOR OF URINE MAY A FFECT DIPSTICK RESULTS. Blood erythrocytes count (nu mber/volume)on 08-05-2022 RBC (Bld) [#/Vol] 4.52 10*6/uL 4.2-5.4 [facility] Work Phone: Blood hemoglobin measurement (mass/volume)on 08-05-2022 Hemoglobin (Bld) [Mass/Vol] 13.4 g/dL 12.0-15.0 [facility] Work Phone: [phone] Blood lymphocytes/100 leukoc yteson 08-05-2022 Lymphocytes/100 WBC (Bld) 29.1 % 19-41 [facility] Work Phone: [phone] Blood monocytes/100 leukocyt eson 08-05-2022 Monocytes/100 WBC (Bld) 5.8 % 0-10 [facility] Work Phone: Blood platelet mean volumeon 08-05-2022 Platelet mean volume (Bld) [Entitic vol] 11.0 fL 6.2-12.0 [facility] Work Phone: Determination of erythrocyte mean corpuscular volume (MCV)on 08-05-2022 MCV (RBC) [Entitic vol] 90.0 fL 81-99 [facility] Work Phone: Erythrocyte sedimentation ra claudia 08-05-2022 ESR (Bld) [Velocity] 15 mm/h 0-30 [facility] Work Phone: Hematocrit Auto (Bld) [Volum e fraction]on 08-05-2022 Hematocrit (Bld) [Volume fraction] 40.7 % 37-47 [facility] Work Phone: Ketones Test strip Ql (U)on 08-05-2022 Ketones Ql (U) 5 mg/dl Negative [facility] Work Phone: Laboratory - Chemistry and C hemistry - challengeon 08-05-2022 CO2 [Moles/Vol] 23.0 mmol/L 21.0-32.0 [facility] Work Phone: Cobalamin (Vitamin B12) [Mass/Vol] 211 pg/mL 211-911 [facility] Work Phone: [phone] Magnesium [Mass/Vol] 2.1 mg/dL 1.6-2.6 [facility] Work Phone: [phone] Urea nitrogen/Creatinine [Mass ratio] 12.8 mg/mg 10-20 [facility] Work Phone: [phone] Laboratory - Hematology and Cell countson 08-05-2022 Erythrocyte distribution width (RBC) [Entitic vol] 42.9 fL 35.1-43.9 [facility] Work Phone: [phone] Erythrocyte distribution width (RBC) [Ratio] 13.1 % 11.6-14.6 [facility] Work Phone: [phone] Immature granulocytes/100 WBC (Bld) 0.300 % 0.0-0.9 [facility] Work Phone: [phone] Comment on above: IG% - Immature Granu locytes (promyelocytes, myelocytes and metamyelocytes) > 1% indicates that a LEFT SHIFT is Present. MCH (RBC) [Entitic mass] 29.6 pg 27.0-32.0 [facility] Work Phone: [phone] Nucleated RBC/100 WBC (Bld) [Ratio] 0 % 0-5 [facility] Work Phone: [phone] MCHC Auto (RBC) [Mass/Vol]on 08-05-2022 MCHC (RBC) [Mass/Vol] 32.9 g/dL 32-36 [facility] Work Phone: [phone] Nitrite Test strip Ql (U)on 08-05-2022 Nitrite Ql (U) Negative Negative [facility] Work Phone: [phone] Panel Informationon 08-05 Anti-Nuclear Antibody Screen Negative Negative [facility] Work Phone: [phone] Comment on above: Performed at: [facility] Ean garber[address] [id number] Director: Maximino Felton PhD, Phone: [phone] Estimated GFR (MDRD) Amer 82 mL/min >60 [facility] Work Phone: Comment on above: GFR Calc Estimated GFR (MDRD) Non-Af Amer 68 mL/min >60 [facility] Work Phone: Comment on above: Non- GFR Calc Thyroid Stimulating Hormone (TSH) 3.28 uIU/mL 0.358-3.74 [facility] Work Phone: Vitamin D 25-Hydroxy 9.5 ng/mL [facility] Work Phone: Comment on above: Vitamin D 25(OH) Sta tus Range Deficiency <20 ng/mL (50nmol/L) Insufficiency 20 - 30 ng/mL (50 - 75 nmol/L) Sufficiency 30 - 100 ng/mL (75 - 250 nmol/L) Toxicity >100 ng/mL (>250 nmol/L) Platelets bldon 08-05-2022 Platelets (Bld) [#/Vol] 331 10*3/uL 150-450 [facility] Work Phone: [phone] Protein Test strip Ql (U)on 08-05-2022 Protein Ql (U) 30 mg/dl Negative [facility] Work Phone: Serum or plasma calcium carlos alberto urement (mass/volume)on 08-05-2022 Calcium [Mass/Vol] 9.2 mg/dL 8.5-10.1 [facility] Work Phone: Serum or plasma cholesterol in HDL measurement (mass/volume)on 08-05-2022 Cholesterol in HDL [Mass/Vol] 53 mg/dL >40 [facility] Work Phone: Comment on above: The drugs N-Acetylcy steine and Metamizole may falsely depress this assay. Reference Range HDL <40 mg/dL Low HDL Cholesterol HDL >or= 60 mg/dL High HDL Cholesterol Serum or plasma cholesterol in VLDL measurement (mass/volume)on 08-05-2022 Cholesterol in VLDL [Mass/Vol] 37 mg/dL 5-40 [facility] Work Phone: [phone] Serum or plasma creatinine m easurement (mass/volume)on 08-05-2022 Creatinine [Mass/Vol] 0.94 mg/dL 0.55-1.02 [facility] Work Phone: Comment on above: The validity of the calculated GFR & GFRAA in patients over 70 years has not been determined. Clinical correlation is essential. Serum or plasma low density lipoprotein (LDL) cholesterol measurement (mass/volume)on 08-05-2022 Cholesterol in LDL [Mass/Vol] 115 mg/dL 0-130 [facility] Work Phone: Serum or plasma urea nitroge n measurement (mass/volume)on 08-05-2022 Urea nitrogen [Mass/Vol] 12 mg/dL 7-18 [facility] Work Phone: [phone] Thin prep Papanicolaou smear with manual screeningon 08-05-2022 Thin prep Papanicolaou smear with manual screening 8 -15 [facility] Work Phone: Urine blood detectionon 07-13 RBC Ql (U) 25 /ul Negative [facility] Work Phone: Urine clarityon 08-05-2022 Clarity (U) Sl. Cloudy Clear [facility] Work Phone: Urine color determinationon 08-05-2022 Color (U) Yellow Yellow [facility] Work Phone: Urine glucose detectionon Glucose Ql (U) Normal mg/dl Normal [facility] Work Phone: Urine leukocyte esterase det ection by dipstickon 08-05-2022 Leukocyte esterase Test strip Ql (U) Negative Negative [facility] Work Phone: Urine pHon 08-05-2022 pH (U) 5.0 [pH] 5.0 - 8.0 [facility] Work Phone: Urine specific gravity measu rementon 08-05-2022 Specific gravity (U) [Rel density] 1.025 1.002-1.030 [facility] Work Phone: Urobilinogen Auto test strip Ql (U)on 08-05-2022 Urobilinogen Ql (U) Normal mg/dl Normal [facility] Work Phone: No Panel Informationon 05-09 POC SARS CoV-2 Antigen Negative [facility] Work Phone: Vital Signs Date Time Vital Sign Value Performing Clinician Mona aguilar 04-07-2023 09:40-0400 Body temperature 97.2 [degF] Dr. Harjinder Higgins Work Phone: [facility] 04-07-2023 09:40-0400 Diastolic blood pressure 77 mm[Hg] Dr. Harjinder Higgins Work Phone: [facility] 04-07-2023 09:40-0400 Heart rate 71 /min Dr. Harjinder Higgins Work Phone: [facility] 04-07-2023 09:40-0400 Respiratory rate 16 /min Dr. Harjinder Higgins Work Phone: [facility] 04-07-2023 09:40-0400 SaO2% (BldA) [Mass fraction] 98 % Dr. Harjinder Higgins Work Phone: [facility] 04-07-2023 09:40-0400 Systolic blood pressure 112 mm[Hg] Dr. Harjinder Higgins Work Phone: [facility] 04-07-2023 08:37-0400 Body height 154.[address] Harjinder Higgins Work Phone: [facility] 04-07-2023 08:37-0400 Body mass index (BMI) [Ratio] 35.8 kg/m2 Dr. Harjinder Higgins Work Phone: [facility] 04-07-2023 08:37-0400 Body weight [address] Harjinder Higgins Work Phone: [facility] 02-10-2023 10:20-0400 Body mass index (BMI) [Ratio] 37 kg/m2 Dr. Harjinder Higgins Work Phone: [facility] 02-10-2023 10:20-0400 Body weight 86.[address] Harjinder Higgins Work Phone: [facility] 05-09-2022 16:00-0400 Body temperature 98 [degF] Dr. Harjinder Higgins Work Phone: [facility] Work Phone: 05-09-2022 16:00-0400 Diastolic blood pressure 76 mm[Hg] Dr. Harjinder Higgins Work Phone: [facility] Work Phone: 05-09-2022 16:00-0400 Heart rate 89 /min Dr. Harjinder Higgins Work Phone: [facility] Work Phone: 05-09-2022 16:00-0400 Respiratory rate 14 /min Dr. Harjinder Higgins Work Phone: [facility] Work Phone: 05-09-2022 16:00-0400 SaO2% (BldA) [Mass fraction] 98 % Dr. Harjinder Higgins Work Phone: [facility] Work Phone: 05-09-2022 16:00-0400 Systolic blood pressure 124 mm[Hg] Dr. Harjinder Higgins Work Phone: [facility] Work Phone: Encounters Encounter Date Encounter Type Care Provider Facility Start: 02-10-2025 ambulatory Guru Dunn lity:[facility] Start: 02-10-2025 ambulatory Guru Dunn lity:[facility] Start: 02-04-2025 End: 02-04-[address] GURU HIGGINS MD Facility:[facility] Start: 02-04-2025 End: 02-04-[address] GURU HIGGINS MD [facility] Start: 08-29-2024 End: 08-29-2024 ambulatory Guru Higgins Facility:[facility] Start: 08-20-2024 Encounter for other preprocedural examination Elvin Ortiz [facility] Start: 08-07-2024 End: 08-07-2024 ambulatory Amilcarmartin Higgins Facility:[facility] Start: 08-07-2024 End: 08-07-2024 ambulatory Bipinganga Higgins Facility:[facility] Start: 08-02-2024 End: 08-02-2024 ambulatory Bipinganga Mackeysabi Facility:[facility] Start: 07-22-2024 End: 07-22-2024 ambulatory Elvin Ortiz Facility:[facility] Start: 07-01-2024 End: 07-01-2024 ambulatory Amilcarmartin Higgins Facility:[facility] Start: 06-12-2024 End: 06-12-2024 ambulatory Amilcarmartin Higgins Facility:[facility] Start: 06-04-2024 End: 06-04-2024 ambulatory Bipinganga Mackeysabi Facility:[facility] Start: 06-04-2024 End: 06-04-2024 [facility] Start: 05-29-2024 End: 05-29-2024 [facility] Start: 05-21-2024 End: 05-21-2024 ambulatory Lesli Peter Facility:[facility] Start: 02-13-2024 End: 02-14-2024 ambulatory LESLI GÓMEZ [facility] Start: 02-13-2024 End: 02-14-2024 Encounter for gynecological examination (general) (routine) without abnormal findings LESLITRACEY GÓMEZ [facility] Start: 11-07-2023 End: 11-07-2023 ambulatory [facility] Work Phone: Start: 11-07-2023 End: 11-07-2023 Patient encounter procedure [facility] [place] Work Phone: Start: 11-06-2023 End: 11-06-2023 ambulatory [facility] Work Phone: Start: 11-06-2023 End: 11-06-2023 Patient encounter procedure [facility] [place] Work Phone: Start: 05-17-2023 End: 05-17-[address] Harjinder Higgins Work Phone: [facility] Work Phone: Start: 05-17-2023 End: 05-17-[address] Harjinder Higgins Work Phone: [facility]-Outpatient Breast Imaging Work Phone: Start: 04-17-[address] Jose Higgins Work Phone: [facility]-Physical Therapy Work Phone: Start: 04-07-2023 Non-patient / Non-visit Dr. Vikki Higgins Work Phone: [facility] Start: 04-07-2023 End: 04-07-2023 Admission to same day surgery center Dr. Harjinder Higgins Work Phone: [facility]-Endoscopy Work Phone: Start: 02-16-2023 End: 02-16-[address] Harjinder Higgins Work Phone: [facility]Radiology, [place] Work Phone: Start: 02-10-2023 Non-patient / Non-visit Dr. Vikki Higgins Work Phone: [facility] Work Phone: Start: 02-03-2023 End: 02-03-[address] Harjinder Higgins Work Phone: [facility] [place] Work Phone: Start: 02-02-2023 End: 02-02-[address] Harjinder Higgins Work Phone: [facility] [place] [facility] Start: 08-05-2022 End: 08-05-[address] Harjinder Higgins Work Phone: [facility] Work Phone: Start: 08-05-2022 End: 08-05-[address] Harjinder Higgins Work Phone: [facility] Start: 05-09-2022 End: 05-09-[address] Harjinder Higgins Work Phone: [facility] Start: 05-06-2022 End: 05-06-[address] Harjinder Higgins Work Phone: [facility] Work Phone: Start: 05-06-2022 End: 05-06-[address] Harjinder Higgins Work Phone: [facility]-Outpatient Breast Imaging Procedures Date Procedure Procedure Detail Performing Clinician Start: 11-07-2023 Urine culture Start: 11-06-2023 Urine culture Start: 05-17-2023 Screening mammography Joss Higgins Work Phone: Start: 02-16-2023 Radiologic examinati on of knee Dr. Harjinder Higgins Work Phone: Start: 05-06-2022 Screening mammography Joss Higgins Work Phone: Plan of Treatment Date Care Activity Detail Author Start: 04-07-2023 Colonoscopy flx dx w/collj spec when pfrmd DIAGNOSTIC COLONOSCOPY [facility] Start: 04-07-2023 Patient discharge [facility] Colonoscopy [facility] Patient referral [facility] Work Phone: Payers Date Payer Category Payer Private Health Insurance [id number] 2024 Self-pay [id number] 2023 Private Health Insurance [id number] 2011 Unknown GAUDENCIO [id number] 1975 Unknown [id number] 1975 Unknown [id number] Private Health Insurance [facility] [id number] Unknown [facility] [id number] Unknown [facility] [id number] Unknown [id number] Unknown [id number] .[id number] Unknown [id number] .[id number] Unknown [id number] Unknown [id number] .[id number] Unknown [id number] .[id number] Unknown [id number] .[id number] Unknown [id number] .[id number] Unknown [id number] .[id number] Unknown [id number] .[id number] Unknown [id number] .[id number] Unknown [id number] ..[id number] Unknown [id number] Unknown [id number] Social History Date Type Detail Facility Start: 05-09-2022 End: 04-03-2023 Tobacco smoking status NHIS Unknown if ever smoked [facility] Start: 1975 Sex Assigned At Female [facility] Tobacco smoking status [facility] Sex Female (finding) [facility] pital NEGATED: Highlighted row [facility] Goals Date Patient Goal Desired Activity /State Mental Status Date Assessment Result Facility 04-07-2023 Cognitive function Voice/Name [facility] Work Phone: Clinical Note 07-22-2024 Note Date & Type Note Facility 07-22-2024 Note [facility] Medical Records Department [address] [place] [address] History Physical Exam 07/22/24 0803 MR#: [id number] Acct: [id number] Name: ROCÍO NIEVES Rep #: [id number] : 1975 49 From: Elvin Ortiz MD PCP: Dr. Guru Higgins MD Status:[facility] Location: [place] [address] History and Physical Date of Admission: 07/22/24 Intake Vital Signs 06/04/2413:40 07/01/2409:26 Height 5 ft 5 ft Weight: 195 lb BMI 38.0 BP 115/78 Blood Pressure Location Rt brachial Position Sitting Respiration 18 Pulse 93 Pulse Source Monitor Temp 97.4 F L Temp Source Temporal Pulse Oximetry (%) 97 Oxygen Delivery Method room air Intake Visit Reasons: DISCUSS BREAST SURGERY Chief Complaint: Discuss breast surgery Saddle Maker Required: No Accompanied by: Mother Is patient in pain?: No Allergies Seasonal Allergies: Uncoded Allergy (Mild, Verified 07/01/24 09:27) NEEDS FOLLOW-UP Medications ???Medication ???Instructions ???Recorded ???Confirmed ???Type NK 10/21/24 10/21/24 History PFSH Medical History (Updated 07/01/24 @ 09:[address] Elvin Ortiz MD) Fibroadenoma of breast Abnormal mammogram Abnormal ultrasound of breast Wears glasses Anxiety Thyroid disease Arthritis Migraine headache Heartburn Non-smoker History of pain when walking Acute upper respiratory infection Contact with or suspected exposure to other viral communicable disease COVID-19 Head congestion Sinusitis, acute Otitis media history of bunionectomy Knee pain Hay fever Surgical History History of Social History Smoking Status: Never smoker alcohol intake: never substance use type: does not use HPI HPI HPI: Patient is a 48-year-old female here for her fibroadenoma of the left breast. She would like it removed as it is causing pain. It is currently painful as she is on her period this was biopsied and came back positive for fibroadenoma. ROS General General: Yes weight change and fatigue; No appetite, colon cancer, breast cancer or weakness HEENT HEENT: No difficulty swallowing, eye injury, eye surgery, swollen glands or hoarseness Endo Endocrine: No thyroid disease, diabetes mellitus, thyroid cancer, Hair loss, heat intolerance or cold intolerance Skin Skin: No rash or changing moles Breast Breast: Yes breast pain, abnormal mammogram and abnormal US; No left breast lump, right breast lump, nipple discharge or breast enlargement Musc Musculoskeletal: Yes arthritis; No back problems, rheumatoid arthritis, gout or joint pain Cardio Cardiovascular: No murmur, pacemaker, heart disease, atrial fibrillation, high blood pressure, heart attack, heart stent, palpitations, shortness of breat with exertion or chest pain Psych Psychiatric: No depression, anxiety or hearing voices Resp Respiratory: No shortness of breath, No sleep apnea, No cough, No COPD, No asthma, No emphysema and No wheezing Gastro Gastrointestinal: No abdominal pain, No nausea or vomiting, No diarrhea, No constipation, No blood in stool, Yes acid reflux, Yes hemorrhoids, No ulcers, No gallbladder problem and No black,tarry stools Shlomo Hematologic: No blood thinners, No blood disorders, No bleeding, No anemia and No blood clots Neuro Neurologic: Yes numbness (hands ), Yes tingling (hands ) and No weakness Exam Const General: cooperative Orientation: alert and oriented x3 HENMT Head: normal to inspection Neck Neck: normal visual inspection and full ROM Chest Chest palpation inspection: normal inspection of the chest Resp Effort Inspection: normal respiratory effort Auscultation: clear to auscultation bilaterally Cardio Rate: regular rate Rhythm: regular rhythm GI Inspection: non-distended Palpation: soft and nontender Skin General: no rashes or lesions noted Neuro General: patient alert and patient oriented x3 Extrem General: full ROM Psych Appearance: grossly normal Mental Status: mental status grossly normal Assessment and Plan Assessment and Plan (1) Fibroadenoma of left breast: Status: Acute Plan: The patient is a fibroadenoma of the left breast which is painful with her periods. She would like it removed. I discussed excision of this mass in the operating room. I discussed the risks of bleeding and infection. Patient understands the risks and is willing to proceed. I will perform an ultrasound-guided wire localization prior to surgery. Elvin Ortiz MD Pager: [facility] [address] [place] [address], [address] [place] [address] Office: I have examined the patient and the H P has b (more content not included)... [facility] Evaluation + Plan note Note Date & Type Note Facility Evaluation + Plan note No data available for this section [facility] Evaluation note Note Date & Type Note Facility Evaluation note Diagnosis Onset Date Acute upper respiratory infection acute Contact with or suspected ex posure to other viral communicable disease [facility] Work Phone: Evaluation note Note Date & Type Note Facility Evaluation note Diagnosis Onset Date Encounter for screening for malignant neoplasm of colon [facility] Work Phone: Evaluation note Note Date & Type Note Facility Evaluation note No assessment information availa [facility] Work Phone: Hospital Discharge instructions Note Date & Type Note Facility Hospital Discharge instructions No data available for this section [facility] Progress note Note Date & Type Note Facility Progress note No data available for this section [facility] Kavya Chief Complaint and Reason for Visit Chief Complaint SCREENING COVID TEST/SYMPTOMS X 4-5 DAYS/EXPOSED Reason for Visit Acute upper respirat ory infection Contact with or suspected exposure to other viral communicable disease Chief Complaint Amb Documentation RIGHT KNEE -pain R KNEE PN/RX HERE SCREENING Reason for Visit Encounter for screen ing for malignant neoplasm of colon Chief Complaint EORDER Advance Directives No Advanced Directives Records Found Advance Directive Response Recorded Date/ Time Living Will No April 03, 2023 12:35pm Power of Senior Storage Administrator No April 03 12:35pm Advance Directive Response Recorded Date/ Time Living Will No April 03, 2023 11:35am Power of Senior Storage Administrator No April 03 11:35am Summary Purpose Family History No Family History Records Found No data available for this section No Family History Records FoundNo Family History Records Found Additional Source Comments Goals (unrecognized section and content) Goals may be documented in a n alternate sectionGoals may be documented in an alternate sectionGoals may be documented in an alternate section No data available for this section Care Teams (unrecognized sec tion and content) Team Status: Active Member Role Status Dates Dr. Harjinder Higgins MD Family Provider Active Dr. Harjinder Higgins MD Primary Care Provider Activ e Team Status: Active Member Role Status Dates Dr. Harjinder Higgins MD Primary Care Provider Activ e Padmini Kelley Attending Provider Active Team Status: Active Member Role Status Dates Dr. Harjinder Higgins MD [facility] Provider Active Dr. Wilian Witt MD Attending Provider, Other [facility] ider Active Team Status: Inactive Member Role Status Dates Dr. Harjinder Higgins MD Primary Care Provider, Atte nding Provider Active Team Status: Inactive Member Role Status Dates Dr. Harjinder Higgins MD Primary Care Provider, Attending Provider, Referring Provider Active Team Status: Inactive Member Role Status Dates Dr. Harjinder Higgins MD Primary Care Provider, [facility] r[facility] Provider Active Dr. Wilian Witt MD Attending Provider Active Team Status: Active Member Role Status Dates Dr. Harjinder Higgins MD Primary Care Provider, Attending Provider, Referring Provider Active Team Status: Inactive Member Role Status Dates Dr. Harjinder Higgins MD Primary Care Provider Activ e LESLI, PETER Attending Provider, Referring Provider Aaliyah ctive INFORMATION SOURCE (unrecogn ized section and content) DATE CREATED AUTHOR 01/03/2025 [facility] DATE CREATED AUTHOR AUTHOR'S ORGANIZ ATION 02/08/2025 [facility] DATE CREATED AUTHOR AUTHOR'S ORGANIZ ATION 02/10/2025 [facility] FOR RECORDS PERTAINING TO PATIENTS WHO ARE OR HAVE BEEN ENROLLED IN A CHEMICAL DEPENDENCY/SUBSTANCEABUSE PROGRAM, SOME INFORMATION MAY BE OMITTED. This clinical summary was aggregated from multiple sources. Caution should be exercised in using it in the provision of clinical care. This summary normalizes information from multiple sources, and as a consequence, information in this document may materially change the coding, format and clinical context of patient data. In addition, data may be omitted in some cases. CLINICAL DECISIONS SHOULD BE BASED ON THE PRIMARY CLINICAL RECORDS. [facility] [employer], [facility]. provides no warranty or guarantee of the accuracy or completeness of information in this document.
== END | disposition home or self-care (01) ==
LOC: MTLAB 13:17
PROVIDERS: PCP Family Medicine; Referring Provider Family Medicine; Visit Provider Family Medicine
DX: E55.9 Vitamin D deficiency, unspecified (principal); D64.9 Anemia, unspecified; E78.2 Mixed hyperlipidemia; R79.89 Other specified abnormal findings of blood chemistry
CPT/HCPCS: 36415; 80053; 80061; 82306; 82607; 82728; 83540; 84443; 85025

== ENCOUNTER → 2025-04-02 | Outpatient (CLI) | payer OTHER, SELFPAY ==
--- NOTE | 2025-04-02 15:16 | RAD_ITS ---
EXAM: XR Abdomen, 2 Views and XR Chest, 1 View CLINICAL INDICATION: ABDOMINAL PAIN TECHNIQUE: Frontal view of the chest, frontal view of the abdomen/pelvis and upright or decubitus view of the abdomen. COMPARISON: No relevant prior studies available. FINDINGS: LUNGS AND PLEURAL SPACES: Unremarkable. No consolidation. No pneumothorax. HEART: Unremarkable. No cardiomegaly. MEDIASTINUM: Unremarkable. Normal mediastinal contour. INTRAPERITONEAL SPACE: No free air. GASTROINTESTINAL TRACT: Fecal retention in the colon consistent with constipation. No dilation. BONES/JOINTS: Unremarkable. No acute fracture. RAD/Acute Abdomen Inc Chest IMPRESSION: Fecal retention in the colon consistent with constipation. Reading Location: [id number]
[2025-04-02 18:34] LABS: Hematocrit 39.1 % (37-47); Hemoglobin 13.0 g/dL (12.0-15.0); Immature Granulocytes Count 0.030 X10^3/uL (0.0-0.0); Mean Corp Hgb Conc 33.2 g/dL (32-36); Mean Corpuscular Volume 89.3 fL (81-99); Mean Platelet Vol. 11.3 fl (6.2-12.0); NRBC Flagged by Analyzer 0 % (0-5); Platelet Count 310 K/mm3 (150-450); RBC Distribution Width CV 14.0 % (11.6-14.6); RBC Distribution Width SD 45.8 fl (35.1-43.9); Red Blood Count 4.38 M/mm3 (4.2-5.4); White Blood Count 7.8 K/mm3 (4.4-11.0)
--- OUTSIDE RECORDS SUMMARY | 2025-04-02 20:21 | XMS RPT_ITS | CCD ---
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 Harjinder Higgins Primary Care Provider Dr. Harjinder Higgins Referring Provider RAJ Childs Attending Provider Dr. Harjinder Higgins Primary Care Provider Padmini Kelley Attending Provider Unavailable Dr. Harjinder Higgins Referring Provider Dr. Wilian Witt Attending Provider Dr. Wilian Witt Other Provider LESLI PETER Attending Unavailable GISELA YANG, DR GARVEY Attending Marco Higgins MD, Dr. Garvey Primary Care Provider Dr. Guru Higgins MD Attending Provider Gisela YANG, Dr. Garvey Referring Provider Guru Higgins Primary Care Unavailable Farhat Childs Referring Unavailable Farhat Childs Attending Unavailable Guru Higgins Primary Care Unavailable Guru Higgins Referring Unavailable Guru Higgins Attending Unavailable Guru Higgins Primary Care Unavailable Elvin Ortiz Referring Unavailable Elvin Ortiz Attending Unavailable Guru Higgins Primary Care Unavailable Guru Higgins Referring Unavailable Guru Higgins Attending Unavailable Gisela, Christmartin Primary Care Unavailable Guru Higgins Referring Unavailable Elvin Ortiz Attending Unavailable Gisela, Christmartin Primary Care Unavailable Guru Higgins Referring Unavailable Elvin Ortiz Attending Unavailable Gisela Christmartin Primary Care Unavailable Guru Higgins Referring Unavailable Farhat Childs Attending [facility] Unavailable Elvin Ortiz Consulting Unavailable Elvin Ortiz Referring Unavailable Elvin Ortiz Attending Un[facility] Unavailable Narendragrand junctionGuru Referring Unavailable Farhat Childs Attending Unavailable [facility] Unavailable Guru Higgins Referring Unavailable Elvin Ortiz Attending Un[facility] Unavailable Guru Higgins Referring Unavailable Farhat Childs Attending Unavailable [facility] Unavailable Lesli Peter Referring Unavailable Lesli Peter Attending Un[facility] Unavailable PeterAaronki Referring Unavailable Lesli Peter Attending Unavailable [facility] Unavailable Elvin Ortiz Referring Unavailable Elvin Ortiz Attending Unavailable Allergies Allergy Classification Reported Allergen(s) Allergy Type Date of Onset Reaction(s) Facility (7 sources) Seasonal Allergies: Uncoded; Translations: [Seasonal Allergies: Uncoded] Allergy to substance 2 NEEDS FOLLOW-UP [facility] Medications Current Medications Medication Drug Class(es) Dates Sig (Normalized) Sig (Original) [place] (Nk) (1 source) Start: 08-29-2024 [place] (Nk) A ctive August 29, 2024 1:00am Completed/Discontinued Medications Medication Drug Class(es) Dates Sig (Normalized) Sig (Original) acetaminophen 325 mg oral tablet (6 sources) Start: 10-22-2017 End: 06-04-2024 take 1 tablet by mouth once as needed for pain Acetaminophen (Tylenol) 325 mg tablet Discontinued 325 mg PO ONCE as needed for pain October 22, 2017 1:00am June 04, 2024 1:41pm amoxicillin 875 mg / clavulanate 125 mg oral tablet (13 sources) Penicillin-class Antibacterial Start: 08-29-2024 End: 09-08-2024 Amoxicillin-Pot Clavulanate 875-125 mg tablet Discontinued 1 {tbl} PO Q12H 20 August 29, 2024 1:00am September 07, 2024 1:00am September 08, 2024 1:09am Start: 08-17-2021 End: 08-27-2021 Amoxicillin-Pot Clavulanate (Augmentin) 875-125 mg tablet Discontinued 1 {tbl} PO Q12H 20 August 17, 2021 1:00am August 26, 2021 1:00am August 27, 2021 1:02am Start: 10-22-2017 End: 11-01-2017 Amoxicillin-Pot Clavulanate (Augmentin) 875-125 mg tablet Discontinued 1 {tbl} PO Q12H 20 October 22, 2017 1:00am October 31, 2017 1:00am November 01, 2017 1:05am azithromycin 250 mg oral tablet (1 source) Macrolide Antimicrobial Start: 06-12-2024 End: 07-01-2024 take 2-5 tablets by mouth once daily Azithromycin 250 mg tablet Discontinued 0 PO .COMPLEX June 12, 2024 12:00am July 01, 2024 9:28am take 500 mg today (day 1), then 250 mg for 4 days (days 2-5) PO benzonatate 100 mg oral capsule (1 source) Non-narcotic Antitussive Start: 06-12-2024 End: 07-01-2024 take 2 capsules by mouth three times daily as needed for cough Benzonatate 100 mg capsule Discontinued 200 mg PO THREE TIMES A DAY as needed for cough June 12, 2024 12:00am July 01, 2024 9:29am cephalexin 500 mg oral capsule (6 sources) Cephalosporin Antibacterial Start: 11-13-2018 End: 11-23-2018 take 1 capsule by mouth every twelve hours Cephalexin 500 mg capsule Discontinued 500 mg PO Q12H 20 November 13, 2018 1:00am November 22, 2018 12:00am November 23, 2018 12:12am cholecalciferol 1.25 mg oral capsule (10 sources) Vitamin D Start: 02-10-2023 End: 06-04-2024 take 1 capsule by mouth every week Cholecalciferol (Vitamin D3) 1,250 mcg (50,000 unit) capsule Discontinued 1250 ug PO EVERY WEEK February 10, 2023 12:00am June 04, 2024 1:41pm Start: 10-22-2017 End: 11-13-2018 take 1 capsule by mouth once Cholecalciferol (Vitamin D3) 1,000 unit capsule Discontinued 1000 U PO ONCE October 22, 2017 1:00am November 13, 2018 6:40pm diphenhydrAMINE citrate 38 mg / ibuprofen 200 mg oral tablet (6 sources) Histamine-1 Receptor Antagonist, Nonsteroidal Anti-inflammatory Drug Start: 11-13-2018 End: 02-10-2023 Ibuprofen-Diphenhydramine Cit (Advil Pm) 200-38 mg tablet Discontinued 1 NMA PO ONCE November 13, 2018 1:00am February 10, 2023 10:13am doxycycline hyclate 100 mg oral capsule (6 sources) Tetracycline-class Drug Start: 09-14-2021 End: 09-24-2021 take 1 capsule by mouth twice daily Doxycycline Hyclate 100 mg capsule Discontinued 100 mg PO TWICE A DAY 30 06September 14, 2021 1:00am September 23, 2021 1:00am September 24, 2021 1:01am DULoxetine 20 mg delayed release oral capsule (6 sources) Serotonin and Norepinephrine Reuptake Inhibitor Start: 11-13-2018 End: 02-10-2023 take 1 capsule by mouth twice daily Duloxetine (Cymbalta) 20 mg capsule,delayed release(DR/EC) Discontinued 20 mg PO TWICE A DAY November 13, 2018 1:00am February 10, 2023 10:13am levonorgestrel 0.142866 mg/hr intrauterine system (6 sources) Progestin, Progestin-containin g Intrauterine Device Start: 10-22-2017 End: 11-13-2018 Levonorgestrel (Mirena) 20 mcg/24 hr (5 years) intrauterine device Discontinued 1 NMA INTRA-UTER ONCE October 22, 2017 1:00am November 13, 2018 6:40pm Start: 10-22-2017 End: 11-13-2018 Levonorgestrel (Mirena) 20 m cg/24 hr (5 years) intrauterine device Discontinued 1 INSERT INTRA-UTER ONCE October 22, 2017 12:00am November 13, 2018 5:40pm methylPREDNISolone 4 mg oral tablet (1 source) Corticosteroid Start: 08-07-2024 End: 08-13-2024 take 1 tablet by mouth once Methylprednisolone (Medrol (Thom)) 4 mg tablets,dose pack Discontinued 4 mg PO per package directions 01 03August 07, 2024 1:00am August 12, 2024 1:00am August 13, 2024 1:08am nabumetone 500 mg oral tablet (6 sources) Nonsteroidal Anti-inflammatory Drug Start: 10-22-2017 End: 11-13-2018 take 1 tablet by mouth twice daily Nabumetone 500 mg tablet Discontinued 500 mg PO TWICE A DAY October 22, 2017 1:00am November 13, 2018 6:40pm triamcinolone acetonide 0.055 mg/actuat metered dose nasal spray (6 sources) Corticosteroid Start: 10-27-2017 End: 11-13-2018 Triamcinolone Acetonide (Nasacort) 55 mcg aerosol,spray Discontinued 2 NMA INTRANASAL daily 16.9 October 27, 2017 1:00am November 13, 2018 6:41pm administer into each nostril; wait 30 seconds between sprays Vitamin B Complex (B Complex-Vitamin B12) tablet (6 sources) Start: 10-22-2017 End: 11-13-2018 Vitamin B Complex (B Complex-Vitamin B12) tablet Discontinued 1 {tbl} PO daily October 22, 2017 1:00am November [...] Active Problems Problem Classification Problem Date Documented Date Episodic/Chronic Immunizations and screening for infectious disease (20 sources) Patient encounter status; Translations: [Encounter for screening for COVID-19] Onset: 02-13-2024 Episodic Nutritional deficiencies (1 source) Vitamin D deficiency, unspecified; Translations: [Vitamin D deficiency, unspecified] Onset: 02-17-2025 Chronic Other connective tissue disease (1 source) Pain in unspecified lower leg; Translations: [Pain in unspecified lower leg] Onset: 01-30-2025 Episodic Other upper respiratory disease (6 sources) Respiratory tract congestion; Translations: [Nasal congestion] 02-10-2023 Episodic Otitis media and related conditions (6 sources) Otitis media; Translations: [Otitis media, unspecified, unspecified ear] 02-10-2023 Episodic Residual codes; unclassified (1 source) Other specified postprocedural states; Translations: [History of lumpectomy] 08-02-2024 Episodic Sprains and strains (1 source) Strain of muscle and/or tendon of lower leg; Translations: [Strain of unspecified muscle and tendon at ankle and foot level, right foot, initial encounter] 08-07-2024 Episodic Viral infection (6 sources) Disease caused by 2019-nCoV; Translations: [COVID-19] 02-10-2023 Episodic Past or Other Problems Problem Classification Problem Date Documented Da te Episodic/Chronic Nonmalignant breast conditions (1 source) Unspecified lump in the left breast, unspecified quadrant; Translations: [Unspecified lump in the left breast, unspecified quadrant] Onset: 06-20-2024 Episodic Other and unspecified benign neoplasm (2 sources) Benign neoplasm of left breast; 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] Onset: 08-20-2024 07-01-2024 Episodic Other injuries and conditions due to external causes (1 source) Unspecified injury of unspecified ankle, initial encounter; Translations: [Unspecified injury of unspecified ankle, initial encounter] Onset: 09-05-2024 Episodic Other screening for suspected conditions (not mental disorders or infectious disease) (5 sources) Encounter for screening for malignant neoplasm of colon; Translations: [Special screening for malignant neoplasms of colon] Onset: 06-10-2024 04-07-2023 Episodic Other upper respiratory infections (16 sources) Acute upper respiratory infection; Translations: [Acute upper respiratory infection, unspecified] Onset: 08-29-2024 Episodic Unclassified (6 sources) history of bunionectomy 04-03-2023 Comment on above: LEFT Results Test Name Value Interpretation Reference Range Facility Absolute lymphocyte countOrd ered By: Guru Higgins on 02-11-2025 Lymphocytes Auto (Unsp spec) [#/Vol] 2.89 10*3/uL 0.83-4.51 [facility] Absolute neutrophil countOrd ered By: Guru Higgins on 02-11-2025 Neutrophils (Bld) [#/Vol] 5.2 10*3/uL 2.0-7.7 [facility] Anion gap in Serum or Plasma Ordered By: Guru Higgins on 02-11-2025 Anion gap [Moles/Vol] 12 mmol/L 5-15 [facility] Automated lymphocyte count a s percentage of total leukocytesOrdered By: Guru Higgins on 02-11-2025 Lymphocytes/100 WBC Auto (Unsp spec) 32.6 % 19- [facility] BUN/creatinine ratioOrdered By: Guru Higgins on 02-11-2025 Urea nitrogen/Creatinine [Mass ratio] 11.1 mg/mg 10- [facility] Basophil percentageOrdered B y: Guru Higgins on 02-11-2025 Basophils/100 WBC (Bld) 0.6 % 0-1 [facility] Bilirubin, totalOrdered By: Guru Higgins on 02-11-2025 Bilirubin [Mass/Vol] 0.23 mg/dL 0.00-1.30 [facility] CBC W/Diff, Automatedon Absolute Lymph 2.89 X10 3/uL Normal 0.83-4.51 [facility] Comment on above: Performed By: #### L 503.0106, L100.0100, L506.1001, L503.6150, L500.4050, L503.6550, L500.4100, L501.9520 ####[facility] [address] [place], [address] Absolute Neut 5.2 X10 3/uL Normal 2.0-7.7 [facility] Comment on above: Performed By: #### L 503.0106, L100.0100, L506.1001, L503.6150, L500.4050, L503.6550, L500.4100, L501.9520 ####[facility] [address] [place], [address] Basophils/100 WBC (Bld) 0.6 % Normal 0-1 [facility] Comment on above: Performed By: #### L 503.0106, L100.0100, L506.1001, L503.6150, L500.4050, L503.6550, L500.4100, L501.9520 ####[facility] [address] [place], [address] Eosinophils/100 WBC (Bld) 1.4 % Normal 0-5 [facility] Comment on above: Performed By: #### L 503.0106, L100.0100, L506.1001, L503.6150, L500.4050, L503.6550, L500.4100, L501.9520 ####[facility] [address] [place], [address] Erythrocyte distribution width (RBC) [Ratio] 13.8 % Normal 11.6-14.6 [facility] Comment on above: Performed By: #### L 503.0106, L100.0100, L506.1001, L503.6150, L500.4050, L503.6550, L500.4100, L501.9520 ####[facility] [address] [place], [address] Hematocrit (Bld) [Volume fraction] 38.6 % Normal 37-47 [facility] Comment on above: Performed By: #### L 503.0106, L100.0100, L506.1001, L503.6150, L500.4050, L503.6550, L500.4100, L501.9520 ####[facility] [address] [place], [address] Hemoglobin (Bld) [Mass/Vol] 13.0 g/dL Normal 12.0-15.0 [facility] Comment on above: Performed By: #### L 503.0106, L100.0100, L506.1001, L503.6150, L500.4050, L503.6550, L500.4100, L501.9520 ####[facility] [address] [place], [address] IG% 0.300 Normal 0.0-0.9 [facility] Comment on above: Result Comment: IG% - Immature Granulocytes (promyelocytes, myelocytes and metamyelocytes) > 1% indicates that a LEFT SHIFT is Present. Performed By: #### L 503.0106, L100.0100, L506.1001, L503.6150, L500.4050, L503.6550, L500.4100, L501.9520 ####[facility] [address] [place], [address] Lymphocytes/100 WBC (Bld) 32.6 % Normal 19-41 [facility] Comment on above: Performed By: #### L 503.0106, L100.0100, L506.1001, L503.6150, L500.4050, L503.6550, L500.4100, L501.9520 ####[facility] [address] [place], [address] MCH (RBC) [Entitic mass] 29.8 pg Normal 27.0-32.0 [facility] Comment on above: Performed By: #### L 503.0106, L100.0100, L506.1001, L503.6150, L500.4050, L503.6550, L500.4100, L501.9520 ####[facility] [address] [place], [address] MCHC (RBC) [Mass/Vol] 33.7 g/dL Normal 32-36 [facility] Comment on above: Performed By: #### L 503.0106, L100.0100, L506.1001, L503.6150, L500.4050, L503.6550, L500.4100, L501.9520 ####[facility] [address] [place], [address] MCV (RBC) [Entitic vol] 88.5 fL Normal 81-99 [facility] Comment on above: Performed By: #### L 503.0106, L100.0100, L506.1001, L503.6150, L500.4050, L503.6550, L500.4100, L501.9520 ####[facility] [address] [place], [address] Monocytes/100 WBC (Bld) 6.4 % Normal 0-10 [facility] Comment on above: Performed By: #### L 503.0106, L100.0100, L506.1001, L503.6150, L500.4050, L503.6550, L500.4100, L501.9520 ####[facility] [address] [place], [address] Neutrophils/100 WBC (Bld) 58.7 % Normal 47-70 [facility] Comment on above: Performed By: #### L 503.0106, L100.0100, L506.1001, L503.6150, L500.4050, L503.6550, L500.4100, L501.9520 ####[facility] [address] [place], [address] Nucleated RBC (Bld) [#/Vol] 0 10*3/uL Normal 0-5 [facility] Comment on above: Performed By: #### L 503.0106, L100.0100, L506.1001, L503.6150, L500.4050, L503.6550, L500.4100, L501.9520 ####[facility] [address] [place], [address] Platelet mean volume (Bld) [Entitic vol] 11.6 fL Normal 6.2-12.0 [facility] Comment on above: Performed By: #### L 503.0106, L100.0100, L506.1001, L503.6150, L500.4050, L503.6550, L500.4100, L501.9520 ####[facility] [address] [place], [address] Platelets (Bld) [#/Vol] 248 10*3/uL Normal 150-450 [facility] Comment on above: Performed By: #### L 503.0106, L100.0100, L506.1001, L503.6150, L500.4050, L503.6550, L500.4100, L501.9520 ####[facility] [address] [place], [address] RBC (Bld) [#/Vol] 4.36 10*6/uL Normal 4.2-5.4 [facility] Comment on above: Performed By: #### L 503.0106, L100.0100, L506.1001, L503.6150, L500.4050, L503.6550, L500.4100, L501.9520 ####[facility] [address] [place], [address] RDW SD 44.0 fl High 35.1-43.9 [facility] Comment on above: Performed By: #### L 503.0106, L100.0100, L506.1001, L503.6150, L500.4050, L503.6550, L500.4100, L501.9520 ####[facility] [address] [place], [address] WBC (Bld) [#/Vol] 8.9 10*3/uL Normal 4.4-11.0 [facility] Comment on above: Performed By: #### L 503.0106, L100.0100, L506.1001, L503.6150, L500.4050, L503.6550, L500.4100, L501.9520 ####[facility] [address] [place], [address] Calculated very low density lipoprotein (VLDL) cholesterol measurementOrdered By: Guru Higgins on 02-11-2025 Calculated very low density lipoprotein (VLDL) cholesterol measurement 54 mg/dL High 5-40 [facility] Carbon dioxide, total [Moles /volume] in Central venous bloodOrdered By: Guru Higgins on 02-11-2025 CO2 [Moles/Vol] 20.5 mmol/L Low 21.0-32.0 [facility] Chloride assayOrdered By: Vikki Higgins on 02-11-2025 Chloride [Moles/Vol] 107 mmol/L 98-108 [facility] Comprehensive Metabolic Prof ilon 02-11-2025 Albumin [Mass/Vol] 3.9 g/dL Normal 3.5-5.0 [facility] Comment on above: Performed By: #### L 503.0106, L100.0100, L506.1001, L503.6150, L500.4050, L503.6550, L500.4100, L501.9520 ####[facility] [address] [place], [address] Albumin/Globulin [Mass ratio] 1.3 {ratio} Normal 0.9-2.4 [facility] Comment on above: Performed By: #### L 503.0106, L100.0100, L506.1001, L503.6150, L500.4050, L503.6550, L500.4100, L501.9520 ####[facility] [address] [place], [address] ALK PHOS 78 U/L Normal 35-104 [facility] Comment on above: Performed By: #### L 503.0106, L100.0100, L506.1001, L503.6150, L500.4050, L503.6550, L500.4100, L501.9520 ####[facility] [address] [place], [address] ALT [Catalytic activity/Vol] 13 U/L Normal <=34 [facility] Comment on above: Performed By: #### L 503.0106, L100.0100, L506.1001, L503.6150, L500.4050, L503.6550, L500.4100, L501.9520 ####[facility] [address] [place], [address] AST [Catalytic activity/Vol] 17 U/L Normal <=31 [facility] Comment on above: Performed By: #### L 503.0106, L100.0100, L506.1001, L503.6150, L500.4050, L503.6550, L500.4100, L501.9520 ####[facility] [address] [place], [address] Bilirubin [Mass/Vol] 0.23 mg/dL Normal 0.00-1.30 [facility] Comment on above: Performed By: #### L 503.0106, L100.0100, L506.1001, L503.6150, L500.4050, L503.6550, L500.4100, L501.9520 ####[facility] [address] [place], [address] BUN/CRE 11.1 RATIO Normal 10-20 [facility] Comment on above: Performed By: #### L 503.0106, L100.0100, L506.1001, L503.6150, L500.4050, L503.6550, L500.4100, L501.9520 ####[facility] [address] [place], [address] Calcium [Mass/Vol] 8.9 mg/dL Normal 7.6-11.0 [facility] Comment on above: Performed By: #### L 503.0106, L100.0100, L506.1001, L503.6150, L500.4050, L503.6550, L500.4100, L501.9520 ####[facility] [address] [place], [address] Chloride [Moles/Vol] 107 mmol/L Normal 98-108 [facility] Comment on above: Performed By: #### L 503.0106, L100.0100, L506.1001, L503.6150, L500.4050, L503.6550, L500.4100, L501.9520 ####[facility] [address] [place], [place], [phone](181) CO2 [Moles/Vol] 20.5 mmol/L Low 21.0-32.0 [facility] Comment on above: Performed By: #### L 503.0106, L100.0100, L506.1001, L503.6150, L500.4050, L503.6550, L500.4100, L501.9520 ####[facility] [address] [place], [address]) Creatinine [Mass/Vol] 0.85 mg/dL Normal 0.70-1.20 [facility] Comment on above: Performed By: #### L 503.0106, L100.0100, L506.1001, L503.6150, L500.4050, L503.6550, L500.4100, L501.9520 ####[facility] [address] [place], [place], [id number] GAP 12 Normal 5-15 [facility] Comment on above: Performed By: #### L 503.0106, L100.0100, L506.1001, L503.6150, L500.4050, L503.6550, L500.4100, L501.9520 ####[facility] [address] [place], [place], [phone](692) GFR/1.73 sq M.predicted among non-blacks MDRD (S/P/Bld) [Vol rate/Area] 84 mL/min/{1.73_m2} Normal >60 [facility] Comment on above: Result Comment: mL/m in/1.73m2 CKD-EPI Creatinine Equation (2020) Performed By: #### L 503.0106, L100.0100, L506.1001, L503.6150, L500.4050, L503.6550, L500.4100, L501.9520 ####[facility] [address] [place], [address] Globulin (S) [Mass/Vol] 3.0 g/dL Normal 2.2-4.2 [facility] Comment on above: Performed By: #### L 503.0106, L100.0100, L506.1001, L503.6150, L500.4050, L503.6550, L500.4100, L501.9520 ####[facility] [address] [place], [address] Glucose [Mass/Vol] 103 mg/dL High 70-99 [facility] Comment on above: Performed By: #### L 503.0106, L100.0100, L506.1001, L503.6150, L500.4050, L503.6550, L500.4100, L501.9520 ####[facility] [address] [place], [address] Potassium [Moles/Vol] 4.1 mmol/L Normal 3.3-5.1 [facility] Comment on above: Performed By: #### L 503.0106, L100.0100, L506.1001, L503.6150, L500.4050, L503.6550, L500.4100, L501.9520 ####[facility] [address] [place], [address] Sodium [Moles/Vol] 139 mmol/L Normal 133-145 [facility] Comment on above: Performed By: #### L 503.0106, L100.0100, L506.1001, L503.6150, L500.4050, L503.6550, L500.4100, L501.9520 ####[facility] [address] [place], [address] T PROT 6.9 g/dL Normal 5.9-8.4 [facility] Comment on above: Performed By: #### L 503.0106, L100.0100, L506.1001, L503.6150, L500.4050, L503.6550, L500.4100, L501.9520 ####[facility] [address] [place], [address] Urea nitrogen [Mass/Vol] 9 mg/dL Normal 4-19 [facility] Comment on above: Performed By: #### L 503.0106, L100.0100, L506.1001, L503.6150, L500.4050, L503.6550, L500.4100, L501.9520 ####[facility] [address] [place], [place], [id number] Eosinophil percentageOrdered By: Guru Higgins on 02-11-2025 Eosinophils/100 WBC (Bld) 1.4 % 0-5 [facility] Erythrocyte distribution wid th ratioOrdered By: Guru Higgins on 02-11-2025 Erythrocyte distribution width (RBC) [Ratio] 13.8 % 11.6-14.6 [facility] Erythrocyte distribution wid th standard deviationOrdered By: Guru Higgins on 02-11-2025 Erythrocyte distribution width (RBC) [Ratio] 44.0 fl High 35.1-43.9 [facility] Ferritinon 02-11-2025 Ferritin [Mass/Vol] 16 ng/mL Low 22-378 [facility] Comment on above: Performed By: #### L 503.0106, L100.0100, L506.1001, L503.6150, L500.4050, L503.6550, L500.4100, L501.9520 ####[facility] [address] [place], [address] Glomerular filtration rate ( GFR) estimation/1.73 sq m using serum, plasma, or whole bOrdered By: Guru Higgins on 02-11-2025 GFR/1.73 sq M.predicted among non-blacks MDRD (S/P/Bld) [Vol rate/Area] 84 mL/min/{1.73_m2} >60 [facility] Comment on above: mL/min/1.73m2 CKD-EP I Creatinine Equation (2020) Hematocrit Auto (Bld) [Volum e fraction]Ordered By: Guru Higgins on 02-11-2025 Hematocrit (Bld) [Volume fraction] 38.6 % 37-47 [facility] Hemoglobin measurementOrdere d By: Guru Higgins on 02-11-2025 Hemoglobin (Bld) [Mass/Vol] 13.0 g/dL 12.0-15.0 [facility] Immature granulocytes/100 WB C Auto (Bld)Ordered By: Guru Higgins on 02-11-2025 Immature granulocytes/100 WBC (Bld) 0.300 % 0.0-0.9 [facility] Comment on above: IG% - Immature Granu locytes (promyelocytes, myelocytes and metamyelocytes) > 1% indicates that a LEFT SHIFT is Present. Ironon 02-11-2025 Iron [Mass/Vol] 49 ug/dL Low 50-170 [facility] Comment on above: Performed By: #### L 503.0106, L100.0100, L506.1001, L503.6150, L500.4050, L503.6550, L500.4100, L501.9520 ####[facility] [address] [place], [address] Iron measurement (mass/mass) Ordered By: Guru Higgins on 02-11-2025 Iron (Unsp spec) [Mass/Mass] 49 ug/dL Low 50-170 [facility] LDL calc ser/plasOrdered By: Guru Higgins on 02-11-2025 Cholesterol in LDL [Mass/Vol] 97 mg/dL [facility] Comment on above: Fgqanzauzm=887-423 m g/dL & Higher Jyhe=260 mg/dL or greater Laboratory - Chemistry and C hemistry - challengeOrdered By: Guru Higgins on 02-11-2025 AST [Catalytic activity/Vol] 17 U/L <32 [facility] Lipid Profileon 02-11-2025 CHOL:HDL 4.22 Normal [facility] Comment on above: Performed By: #### L 503.0106, L100.0100, L506.1001, L503.6150, L500.4050, L503.6550, L500.4100, L501.9520 ####[facility] [address] [place], [address] Cholesterol [Mass/Vol] 198 mg/dL Normal <=200 [facility] Comment on above: Result Comment: Chol esterol level, Desirable <200 mg/dL Borderline high cholesterol 200-239 mg/dL High cholesterol >=240 mg/dL Recommendations of the NCEP Adult Treatment Panel for the following risk-cutoff thresholds for the [place] population. Performed By: #### L 503.0106, L100.0100, L506.1001, L503.6150, L500.4050, L503.6550, L500.4100, L501.9520 ####[facility] [address] [place], [address] Cholesterol in HDL [Mass/Vol] 47 mg/dL Normal [facility] Comment on above: Result Comment: Hollie onal Cholesterol Education Program (NCEP) guidelines: <40 mg/dL: Low HDL-cholesterol (major risk factor for CHD) >= 60 mg/dL: High HDL-cholesterol (negative risk factor for CHD) HDL-cholesterol is affected by a number of factors, e.g. smoking, exercise, hormones, sex and age. Performed By: #### L 503.0106, L100.0100, L506.1001, L503.6150, L500.4050, L503.6550, L500.4100, L501.9520 ####[facility] [address] [place], [place], [address] Cholesterol in LDL [Mass/Vol] 97 mg/dL Normal [facility] Comment on above: Result Comment: Bord twyypr=622-512 mg/dL Higher Vdwb=848 mg/dL or greater Performed By: #### L 503.0106, L100.0100, L506.1001, L503.6150, L500.4050, L503.6550, L500.4100, L501.9520 ####[facility] [address] [place], [address] Cholesterol in VLDL [Mass/Vol] 54 mg/dL High 5-40 [facility] Comment on above: Performed By: #### L 503.0106, L100.0100, L506.1001, L503.6150, L500.4050, L503.6550, L500.4100, L501.9520 ####[facility] [address] [place], [address] Triglyceride [Mass/Vol] 272 mg/dL High [facility] Comment on above: Result Comment: The drugs N-Acetylcysteine and Metamizole may falsely depress this assay. Normal range: <150 mg/dL Borderline High: 150-199 mg/dL High: 200-499 mg/dL Very High: >500 mg/dL Performed By: #### L 503.0106, L100.0100, L506.1001, L503.6150, L500.4050, L503.6550, L500.4100, L501.9520 ####[facility] [address] [place], [place], [id number] MCV (mean corpuscular volume ) determinationOrdered By: Guru Higgins on 02-11-2025 MCV (RBC) [Entitic vol] 88.5 fL 81-99 [facility] Mean corpuscular hemoglobin (MCH) determinationOrdered By: Guru Higgins on 02-11-2025 MCH (RBC) [Entitic mass] 29.8 pg 27.0-32.0 [facility] Mean corpuscular hemoglobin concentration (MCHC) determinationOrdered By: Guru Higgins on 02-11-2025 MCHC (RBC) [Mass/Vol] 33.7 g/dL 32-36 [facility] Mean platelet volume determi nationOrdered By: Guru Higgins on 02-11-2025 Platelet mean volume (Bld) [Entitic vol] 11.6 fL 6.2-12.0 [facility] Monocyte percentageOrdered B y: Guru Higgins on 02-11-2025 Monocytes/100 WBC (Bld) 6.4 % 0-10 [facility] Neutrophil percentageOrdered By: Guru Higgins on 02-11-2025 Neutrophils/100 WBC (Bld) 58.7 % 47-70 [facility] Nucleated red blood cell per centageOrdered By: Guru Higgins on 02-11-2025 Nucleated RBC/100 WBC (Bld) [Ratio] 0 % 0-5 [facility] Platelet countOrdered By: Vikki Higgins on 02-11-2025 Platelets (Bld) [#/Vol] 248 10*3/uL 150-450 [facility] Potassium measurement (mass/ volume)Ordered By: Guru Higgins on 02-11-2025 Potassium (Unsp spec) [Mass/Vol] 4.1 mmol/L 3.3-5.1 [facility] RBC Auto (Bld) [#/Vol]Ordere d By: Guru Higgins on 02-11-2025 RBC (Bld) [#/Vol] 4.36 10*6/uL 4.2-5.4 [facility] Screening total cholesterol/ high density lipoprotein (HDL) cholesterol ratioOrdered By: Guru Higgins on 02-11-2025 Cholesterol.total/Choles terol in HDL [Mass ratio] 4.22 {ratio} [facility] Serum creatinine measurement (mass/volume)Ordered By: Guru Higgins on 02-11-2025 Creatinine [Mass/Vol] 0.85 mg/dL 0.70-1.20 [facility] Serum globulin measurementOr dered By: Guru Higgins on 02-11-2025 Globulin (S) [Mass/Vol] 3.0 g/dL 2.2-4.2 [facility] Serum glucose measurement (m ass/volume)Ordered By: Guru Higgins on 02-11-2025 Glucose [Mass/Vol] 103 mg/dL High 70-99 [facility] Serum or plasma alanine lyons otransferase (ALT) measurementOrdered By: Guru Higgins on 02-11-2025 ALT [Catalytic activity/Vol] 13 U/L <35 [facility] Serum or plasma albumin carlos alberto urement (mass/volume)Ordered By: Guru Higgins on 02-11-2025 Albumin [Mass/Vol] 3.9 g/dL 3.5-5.0 [facility] Serum or plasma albumin/glob ulin mass ratioOrdered By: Guru Higgins on 02-11-2025 Albumin/Globulin [Mass ratio] 1.3 {ratio} 0.9-2.4 [facility] Serum or plasma alkaline devaughn sphatase measurementOrdered By: Guru Higgins on 02-11-2025 ALP [Catalytic activity/Vol] 78 U/L 35-104 [facility] Serum or plasma calcium carlos alberto urement (mass/volume)Ordered By: Guru Higgins on 02-11-2025 Calcium [Mass/Vol] 8.9 mg/dL 7.6-11.0 [facility] Serum or plasma cholesterol in HDL measurement (mass/volume)Ordered By: Guru Higgins on 02-11-2025 Cholesterol in HDL [Mass/Vol] 47 mg/dL >40 [facility] Comment on above: National Cholesterol Education Program (NCEP) guidelines:<40 mg/dL: Low HDL-cholesterol (major risk factor for CHD)>= 60 mg/dL: High HDL-cholesterol (negative risk factor for CHD)HDL-cholesterol is affected by a number of factors, e.g. smoking, exercise, hormones, sex and age. Serum or plasma cholesterol measurement (mass/volume)Ordered By: Guru Higgins on 02-11-2025 Cholesterol [Mass/Vol] 198 mg/dL <201 [facility] Comment on above: Cholesterol level, D esirable <200 mg/dLBorderline high cholesterol 200-239 mg/dLHigh cholesterol >=240 mg/dLRecommendations of the NCEP Adult Treatment Panel for the following risk-cutoff thresholds for the [place] population. Serum or plasma ferritin luz surement (mass/volume)Ordered By: Guru Higgins on 02-11-2025 Ferritin [Mass/Vol] 16 ng/mL Low 22-378 [facility] Serum or plasma urea nitroge n measurement (mass/volume)Ordered By: Guru Higgins on 02-11-2025 Urea nitrogen [Mass/Vol] 9 mg/dL 4-19 [facility] Sodium levelOrdered By: Jen Higgins on 02-11-2025 Sodium [Moles/Vol] 139 mmol/L 133-145 [facility] TSH DL <= 0.005 mIU/L QnOrde red By: Guru Higgins on 02-11-2025 TSH Qn 4.060 uIU/mL 0.300-4.200 [facility] Thyroid Stim Hormone (TSH)on 02-11-2025 TSH 4.060 uIU/mL Normal 0.300-4.200 [facility] Comment on above: Performed By: #### L 503.0106, L100.0100, L506.1001, L503.6150, L500.4050, L503.6550, L500.4100, L501.9520 ####[facility] [address] [place], [address] Total proteinOrdered By: John Higgins on 02-11-2025 Protein [Mass/Vol] 6.9 g/dL 5.9-8.4 [facility] Triglycerides measurementOrd ered By: Guru Higgins on 02-11-2025 Triglyceride [Mass/Vol] 272 mg/dL High <199 [facility] Comment on above: The drugs N-Acetylcy steine and Metamizole may falsely depress this assay. Normal range: <150 mg/dLBorderline High: 150-199 mg/dLHigh: 200-499 mg/dLVery High: >500 mg/dL Vitamin B12on 02-11-2025 Cobalamin (Vitamin B12) [Mass/Vol] 263 pg/mL Normal 180-914 [facility] Comment on above: Performed By: #### L 503.0106, L100.0100, L506.1001, L503.6150, L500.4050, L503.6550, L500.4100, L501.9520 ####[facility] [address] [place], [place], [address] Vitamin B12 ser/plasOrdered By: Guru Higgins on 02-11-2025 Cobalamin (Vitamin B12) [Mass/Vol] 263 pg/mL 180-914 [facility] Vitamin D,25 Hydroxyon 02-11 Vitamin D 25-OH 9.1 ng/mL Low 30-100 [facility] Comment on above: Result Comment: Lcarisa min D Status Deficiency: <20 ng/mL (50nmol/L) Insufficiency: 20-30 ng/mL (50-75 nmol/L) Sufficiency: 30-100 ng/mL (75-250 nmol/L) Toxicity: >100 ng/mL (>250 nmol/L) Performed By: #### L 503.0106, L100.0100, L506.1001, L503.6150, L500.4050, L503.6550, L500.4100, L501.9520 ####[facility] [address] [place], [place], [address] White blood cell (WBC) count Ordered By: Guru Higgins on 02-11-2025 WBC (Bld) [#/Vol] 8.9 10*3/uL 4.4-11.0 [facility] Urgent Care Visit Reporton 1 10-30-2023 Urgent Care Visit Report [facility] [address], [address] [place], [place] [address] OFFICE VISIT Date of Service: 08/29/24 MR#: [id number] Acct: [id number] Name: ROCÍO NIEVES Rep #: [id number] : 1975 Provider: RAJ Steward Age/Sex: 49/F Location: [facility] Status: Signed Intake Vital Signs 08/07/24 15:51 [...] Chief Complaint: chest congest, ALICEA, drainage, cough Office Mail Clerk Required: No Is patient in pain?: No [...] a sinus infection. She has tried multiple ygxs-vbj-usywpjw medications with little to no relief. She [...] Code Off vis,est,level 3 Diagnoses Acute sinusitis J01.90 Assessment and Plan Assessment [...] past year?: No 08/30/24 0709 Date Farhat Pederson Signature: Date (if applicable) CC: Normal [facility] Ankle min 3 Viewson 08-07-20 Ankle min 3 Views [facility] [place] [address] Ankle min 3 Views MR#: [id number] Acct: [id number] Name: ROCÍO NIEVES Rep #: [id number] : 1975 F 49 From: Wes Murillo MD PCP: Dr. Guru Higgins MD Status: REG CLI Study: Ankle min 3 Views Date of Exam: 08/07/24 Exam# [id number] Ordering Dr: Farhat Montague [id number] STUDY: X-RAY - RIGHT ANKLE REASON FOR [...] Signed: Wes Murillo MD at 16:51 EST , CC: RAJ Steward; Dr. Guru Higgins MD Supervisory Geographer: Signed Normal [facility] Urgent Care Visit Reporton 1 10-07-2023 Urgent Care Visit Report [facility] [address] [facility], [address] [place] [address] OFFICE VISIT Date of Service: 08/07/24 MR#: [id number] Acct: [id number] Name: ROCÍO NIEVES Rep #: [id number] : 1975 Provider: RAJ Steward Age/Sex: 49/F Location: [facility] Status: Signed Intake Vital Signs 07/22/24 08:06 08/07/24 15:51 Height 5 ft 5 ft BP 132/76 H Blood Pressure Location Lt brachial Position Sitting Respiration 16 Pulse 82 Pulse Source NIBP Temp 98.1 F Temp Source Oral Pulse Oximetry (%) 98 Oxygen Delivery Method room air Intake Visit Reasons: R ANKLE PAIN/SWELLING Chief Complaint: ankle pain Office Mail Clerk Required: No Is patient in pain?: Yes [...] (Updated 08/07/24 @ 16:24 by Farhat ANTHONY, RAJ) Fibroadenoma of breast Abnormal mammogram Abnormal ultrasound [...] never substance use type: does not use [facility] HPI Chief Complaint: ankle pain Details: ROCÍO [...] Off vis,est,level 4 Diagnoses Right ankle strain S96.911A Assessment and Plan Assessment and Plan (1) Right ankle strain: Status: Acute Orders: Orders Ankle min 3 Views Today S99.919A - Unspecified injury of unspecified ankle, initial encounter Referrals Physical Therapy Referral S96.911A - Strain of unspecified muscle and tendon [...] Pederson Signature: Date (if applicable) CC: Normal [facility] Surgery Visit Reporton 08-02 Surgery Visit Report [facility] [address] [place] [address] OFFICE VISIT Date of Service: 08/02/24 MR#: [id number] Acct: [id number] Name: ROCÍO NIEVES Rep #: [id number] : 1975 Provider: Dr. Elvin wolfe MD Age/Sex: 49/F Location: [facility] Status: Signed Intake Vital Signs 07/22/24 08:06 [...] Op Diagnoses Fibroadenoma of left breast D24.2 PFSH Medical History Fibroadenoma of breast Abnormal mammogram [...] Follow-up as needed. Elvin Ortiz MD Pager: [facility] [address] [place] [address], [address] [place] [address] Office: 08/02/24 0921 Date Elvin Ortiz MD [facility] Signature: Date (if applicable) CC: Normal [facility] Breast Biopsy Specimenon Breast Biopsy Specimen [facility] [address] [place] [id number] Breast Biopsy Specimen MR#: [id number] Acct: [id number] Name: ROCÍO NIEVES Rep #: [id number] : 1975 F 49 From: Juan driver MD PCP: Dr. Guru Higgins MD Status: [facility] Study: Breast Biopsy Specimen Date of Exam: 07/22/24 Exam# [id number] Ordering Dr: Elvin Ortiz [id number] SURGICAL BREAST SPECIMEN RADIOGRAPH CLINICAL: Document presence of tissue clip marker in biopsy specimen. FINDINGS: Specimen shows presence of tissue clip marker. Electronically Signed: Juan Krishna MD at 9:40 EST , BI/Breast Biopsy Specimen IMPRESSION: undefined CC: Dr. Elvin Ortiz MD; Dr. Gruu Higgins MD Supervisory Geographer: Signed Normal [facility] Discharge Instructionon 07-12 Discharge Instruction [facility] Medical Records Department [address] [place] [address] Instructions for Home/Discharge Instructions 07/22/24911 MR#: [id number] Acct: [id number] Name: ROCÍO NIEVES Rep #: [id number] : 1975 49 From: Elvin Ortiz MD PCP: Dr. Guru Higgins MD Status:REG [facility] Discharge Instructions Diet Discharge Diet: No restrictions [...] to schedule 2 week follow up appointment. [phone] Test Results: Test results from this visit will be discussed in further detail at your follow-up appointment, if applicable. Discharge Plan Admission Attending Provider: Elvin Ortiz Primary Care Provider: Guru Higgins Instructions Print Language: Irish Discharge Orders/Prescriptions Prescriptions: No Action NK Referrals / Follow Up: Guru Higgins MD [Primary Care Provider] - Disposition Disposition (needs filled in before D/C Order can be placed): Home, Self Care 07/22/24912 Elvin Ortiz MD CC: Dr. Guru Higgins MD Signed Normal [facility] MR/POSTOP.ANEon 07-22-2024 MR/POSTOP.ANE [facility] Medical Records Department [address] [place] [address] Anesthesia Postop Eval I 07/22/24926 MR#: [id number] Acct: [id number] Name: ROCÍO NIEVES Rep #: [id number] : 1975 49 From: Farida Nogueira CRNA PCP: Dr. Guru Higgins MD Status:[facility] Y Race: C Location: [place] [address] Anesthesia: Postop Eval I Current Vital Signs [...] Eval 1 completed: Yes 07/22/24927 Date Farida Escalonaignganga Signature: Date CC: Signed Normal [facility] MR/[id number] 07-22-2024 MR/POSTOPAN2 [facility] Medical Records Department [address] [place] [address] Anesthesia Postop Eval II 07/22/24 1418 MR#: [id number] Acct: [id number] Name: ROCÍO NIEVESN Rep #: [id number] : 1975 49 From: Ba Hull MD PCP: Dr. Guru Higgins MD Status:[facility] Y Race: C Location: [facility] Anesthesia Postop Eval I Sum Postop Eval Completion status Anesthesia document: Postop Eval 1 completed: Yes Anesthesia Postop Eval I Summary Anesthesia Postop Eval I Summary: Anesthesia Postop Eval I: Assessment Summary Airway patent Yes 07/22/24 09:28 LIVE AMMUNITION INSPECTOR.HBARR Spontaneous unlabored Yes 07/22/24 09:28 LIVE AMMUNITION INSPECTOR.HBARR respirations Mental status Awake 07/22/24 09:28 LIVE AMMUNITION INSPECTOR.HBARR nausea No 07/22/24 09:28 LIVE AMMUNITION INSPECTOR.HBARR Vomiting No 07/22/24 09:28 LIVE AMMUNITION INSPECTOR.HBARR Anesthesia Postop Eval I: Fluid Summary Crystalloid volume administer 500 07/22/24 09:28 LIVE AMMUNITION INSPECTOR.HBARR (ml) Colloids volume administered ( ml) Blood Product volume administered (ml) Total IV fluid infused 500 07/22/24 09:28 LIVE AMMUNITION INSPECTOR.HBARR Anesthesia Postop Eval I: Summary Notes Anesthesia Complication No 07/22/24 09:28 LIVE AMMUNITION INSPECTOR.HBARR Anesthesia Complication Comment: Post-operative progress note Anesthesia: Postop Eval II Evaluation Mental status: Awake and Calm Pain Level: 1 nausea: No Vomiting: No Complications Anesthesia Complication: No 07/22/24 1419 Date Ba Hull MD Cosigner Signature: Date CC: Signed Normal [facility] Operative Reporton 4 Operative Report [facility] Medical Records Department [address] [place] [address] Operative Report 07/22/24908 MR#: [id number] Acct: [id number] Name: ROCÍO NIEVES Rep #: [id number] : 1975 49 From: Elvin Ortiz MD PCP: Dr. Guru Higgins MD Status:REG [facility] Location: [place] [address] Operative Report (Standard) Operative Information Surgery/Procedure Performed: [...] was applied. 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 Elvin Ortiz MD; Dr. Guru Higgins MD Signed Normal [facility] ,Urineon 07-22-2024 Beta HCG ( test) Ql (U) Negative Normal [facility] Comment on above: Result Comment: Very dilute urine specimens, as indicated by a low specific gravity, may not contain client services representative levels of hCG. If is still suspected, a first morning urine specimen should be collected 48 hours later and tested. Performed By: #### L 400.7600 #### [facility] [address] [place], [address] Surgery Specimen Level Eladio 07-22-2024 Surgery Specimen Level IV -------- Patient Age/Sex Location Account Attending Physician -------- ROCÍO NIEVES 49/F [facility] [id number] Dr. Elvin Ortiz MD -------- Specimen: [id number] Received: 07/22/24 Status: FABIO Monsalve Num: [id number] Spec Type: BREAST BX Subm Dr: Dr. [...] labeled with the patient's name and designated "Left breast tissue." The specimen consists of an unoriented piece of fibroadipose tissue with needle localization measuring 3.0 x 2.7 x 1.2cm. Sections reveal a olson solid nodule measuring 0.7cm in diameter. The entire specimen is submitted in four cassettes. 07/23/2024 TC:1 CPT:33962 -------- Patient Age/Sex Location Account Attending Physician -------- ROCÍO NIEVES 49/F [facility] [id number] Dr. Elvin Ortiz MD -------- Signed (signature on file) Dr. Simon Kapoor DO 07/24/24 1158 -------- Normal [facility] Comment on above: Performed By: #### P SUIV ####[facility] [address] [place], [address] Surgery Visit Reporton 07-[address] [facility] [address] [place] [address] OFFICE VISIT Date of Service: 07/01/24 MR#: [id number] Acct: [id number] Name: ROCÍO NIEVES Rep #: [id number] : 1975 Provider: Dr. Elvin wolfe MD Age/Sex: 48/F Location: [facility] Status: Signed Intake Vital Signs 06/04/24 13:40 07/01/24 09:26 Height 5 ft 5 ft Weight: 195 lb BMI 38.0 BP 115/78 Blood Pressure Location Rt brachial Position Sitting Respiration 18 Pulse 93 Pulse Source Monitor Temp 97.4 F L Temp Source Temporal Pulse Oximetry (%) 97 Oxygen Delivery Method room air Intake Visit Reasons: DISCUSS BREAST SURGERY Chief Complaint: Discuss breast surgery Office Mail Clerk Required: No Accompanied by: Mother Is patient [...] prior to surgery. Elvin Ortiz MD Pager: [facility] [address] [place] [address] [address] [place], [address] [place] [address] Office: Coding Level of Care Code Off vis,est,level 3 Diagnoses Fibr (more content not included)... Normal [facility] Urgent Care Visit Reporton 1 Urgent Care Visit Report [facility] [address] [facility], [address] [place] [address] OFFICE VISIT Date of Service: 06/12/24 MR#: [id number] Acct: [id number] Name: ROCÍO NIEVES Rep #: [id number] : 1975 Provider: RAJ Steward Age/Sex: 48/F Location: [facility] Status: Signed Intake Vital Signs 06/04/24 13:40 [...] Chief Complaint: cough, face pain, congestion, diarrhea Office Mail Clerk Required: No Is patient in pain?: No [...] congestion, face pain, diarrhea x 5 days. [facility] Medical History (Updated 06/12/24 @ 08:51 by Farhat ANTHONY, PA) Abnormal mammogram Abnormal ultrasound of breast Wears [...] Exam Const General: cooperative and healthy appearing [facility] Head: normal to inspection Ears: hearing grossly [...] Patient atif (more content not included)... Normal [facility] Surgery Specimen Level Eladio 06-04-2024 Surgery Specimen Level IV -------- Patient Age/Sex Location Account Attending Physician -------- ROCÍO NIEVES/F [facility] [id number] Dr. Elvin Ortiz MD -------- Specimen: [id number] Received: 06/04/24 Status: FABIO Monsalve Num: [id number] Spec Type: BREAST BX Subm Dr: Dr. Elvin Ortiz MD HEADER OPERATION: Ultrasound guided needle core biopsy left breast PRE-OP DIAGNOSIS: Abnormal mammogram TISSUE SUBMITTED: Left breast biopsy Ischemic Time: 1 minute Fixation Time: 30 hours -------- MICROSCOPIC DIAGNOSIS Left breast, ultrasound guided needle core biopsy: Fibroadenoma. Negative for atypia or malignancy. See comment. Josesito 06/06/2024 COMMENT Correlation with clinical, radiologic findings and appropriate follow up are necessary. MICROSCOPIC DESCRIPTION Slides are reviewed. GROSS DESCRIPTION Received in fixative is one container labeled with the patient's name and designated "Left breast biopsy." The specimen consists of multiple elongated fragments of olson-yellow fibroadipose tissue that in aggregate measure 1.5 x 0.3 x 0.1 cm. The specimen is totally submitted in one cassette. 06/05/2024 TC:1 CPT:52808 -------- Patient Age/Sex Location Account Attending Physician -------- ROCÍO NIEVES 48/F [facility] [id number] Dr. Elvin Ortiz MD -------- Signed (signature on file) Dr. Caleb Harden MD 06/06/24 1051 -------- Normal [facility] Comment on above: Performed By: #### P SUIV #### [facility] [address] [place], [place], [id number] Surgery Visit Reporton 06-04 Surgery Visit Report [facility] [address] [place] [address] OFFICE VISIT Date of Service: 06/04/24 MR#: [id number] Acct: [id number] Name: ROCÍO NIEVES Rep #: [id number] : 1975 Provider: Dr. Elvin wolfe MD Age/Sex: 48/F Location: [facility] Status: Signed Intake Vital Signs 04/07/23 08:37 [...] Allergy (Mild, Verified 06/04/24 13:41) NEEDS FOLLOW-UP [facility] Medical History (Updated 06/04/24 @ [...] incision. Patient tolerated the procedure well. Alert Casing Inspector Yes Biopsy Breast Biopsy: [id number] US Guidance Procedure Time Out Time Out Informed consent given: Yes Consent signed: Yes Time out checklist: patient, procedure, site marked/identified, positioning of patient, supplies available, allergies confirmed and team agrees on procedure Time out staff in room: Yes Time out verified: Yes Time out date: 06/04/24 Time out time: 13:55 Assessmen (more content not included)... Normal [facility] Breast Limited Unilateralon 05-29-2024 Breast Limited Unilateral [facility] [address] [place] [address] [id number] Breast Limited Unilateral MR#: [id number] Acct: [id number] Name: ROCÍO NIEVES Rep #: [id number] : 1975 F 48 From: Juan driver MD PCP: Dr. Guru Higgins MD Status: REG CLI Study: Breast Limited Unilateral Date of Exam: Exam# [id number] Ordering Dr: Lesli Peter MD [id number] STUDY: ULTRASOUND BREAST - LEFT REASON FOR [...] Signed: Juan Krishna MD at 13:48 EDT , CC: Dr. Guru Higgins MD; Dr. Lesli Peter MD Supervisory Geographer: Signed Normal [facility] SCRN MAMM (CAD)W/VELMA BILATo n 05-21-2024 SCRN MAMM (CAD)W/VELMA BILAT [facility] [address] [place] [address] SCRN MAMM (CAD)W/VELMA BILAT MR#: [id number] Acct: [id number] Name: ROCÍO NIEVES Rep #: [id number] : 1975 F 48 From: Juan driver MD PCP: Dr. Guru Higgins MD Status: REG CL Study: SCRN MAMM (CAD)W/VELMA BILAT Date of Exam: 05/12 Exam# [id number] Ordering Dr: LESLI PETER [id number] MAMMOGRAPHY - BILATERAL SCREENING REASON FOR EXAM: [...] delay biopsy of a clinically suspicious abnormality. [id number] Electronically Signed: Juan Krishna MD at 15:36 EDT , CC: Dr. Guru Higgins MD; LESLI PETER Supervisory Geographer: Signed Normal [facility] THINPREP PAP SMEARon 024 THINPREP PAP SMEAR Gynecologic Cytology Report Case: [id number] Authorizing Provider: Lesli Peter MD Collected: 02/13/2024 08:44 AM Ordering Location: [place] DETONATOR ASSEMBLER Received: 02/14/2024 08:44 AM [facility] Draw Site First Screen: Rosetta Fischer TECHNOLOGIST [...] from every slide are reviewed by a bariatric nurse. Specimen processing and Primary Screening performed at: [place] [address] HPV 16 : Negative HPV 18 : [...] for patient management. HPV testing performed at: [facility] - [address] [place] [id number] - Normal [facility] Comment on above: Performed By: #### [id number] #### [facility] [address] [place] [address] Benigno Quintero M.D. [id number] Basophil percentageOrdered B y: Harjinder Higgins on 11-07-2023 Basophil percentage 0 SEEN /hpf 0-5 [facility] Bilirubin [Mass/Vol] 0.40 mg/dL 0.20-1.00 [facility] Comment on above: For patients on eltr ombopag therapy, use of Dimension [place] TBIL is not recommended. Chloride [Moles/Vol] 110 mmol/L 98-107 [facility] Glucose [Mass/Vol] 98 mg/dL 74-106 [facility] Hemoglobin (Bld) [Mass/Vol] 12.5 g/dL 12.0-15.0 [facility] Potassium [Moles/Vol] 3.8 mmol/L 3.5-5.1 [facility] Protein [Mass/Vol] 7.1 g/dL 6.4-8.2 [facility] Sodium [Moles/Vol] 141 mmol/L 136-145 [facility] WBC (Bld) [#/Vol] 10.3 10*3/uL 4.4-11.0 [facility] Bilirubin Test strip Ql (U)O rdered By: Harjinder Higgins on 11-07-2023 Bilirubin Ql (U) Negative Negative [facility] Calcium oxalate crystals det ection in urine sediment by light microscopyOrdered By: Harjinder Higgins on 11-07-2023 Calcium oxalate crystals LM Ql (Urine sed) 1+ /hpf [facility] Culture, urineOrdered By: Vikki Higgins on 11-07-2023 Bacteria identified Cx Nom (U) Mixed Gram Pos & Gram Neg Org [facility] Determination of erythrocyte mean corpuscular volume (MCV)Ordered By: Harjinder Higgins on 11-07-2023 MCV (RBC) [Entitic vol] 90.3 fL 81-99 [facility] Erythrocyte distribution wid th ratioOrdered By: Harjinder Higgins on 11-07-2023 Erythrocyte distribution width (RBC) [Ratio] 13.5 % 11.6-14.6 [facility] Erythrocyte distribution wid th standard deviationOrdered By: Harjinder Higgins on 11-07-2023 Erythrocyte distribution width (RBC) [Entitic vol] 44.6 fL 35.1-43.9 [facility] Erythrocyte sedimentation ra teOrdered By: Harjinder Higgins on 11-07-2023 ESR (Bld) [Velocity] 11 mm/h 0-30 [facility] Hematocrit Auto (Bld) [Volum e fraction]Ordered By: Harjinder Higgins on 11-07-2023 Hematocrit (Bld) [Volume fraction] 38.0 % 37-47 [facility] Iron measurement (mass/mass) Ordered By: Harjinder Higgins on 11-07-2023 Iron (Unsp spec) [Mass/Mass] 61 ug/dL 50-170 [facility] Ketones Test strip Ql (U)Ord ered By: Harjinder Higgins on 11-07-2023 Ketones Ql (U) Negative Negative [facility] Laboratory - Chemistry and C hemistry - challengeOrdered By: Harjinder Higgins on 11-07-2023 Albumin/Globulin [Mass ratio] 1.0 {ratio} 0.9-2.4 [facility] ALP [Catalytic activity/Vol] 69 U/L 45-117 [facility] ALT [Catalytic activity/Vol] 21 U/L 13-56 [facility] CO2 [Moles/Vol] 25.0 mmol/L 21.0-32.0 [facility] Cobalamin (Vitamin B12) [Mass/Vol] 254 pg/mL 211-911 [facility] Ferritin [Mass/Vol] 10 ng/mL 8-252 [facility] Globulin (S) [Mass/Vol] 3.5 g/dL 2.2-4.2 [facility] Urea nitrogen/Creatinine [Mass ratio] 16.7 mg/mg 10-20 [facility] Laboratory - Hematology and Cell countsOrdered By: Harjinder Higgins on 11-07-2023 MCH (RBC) [Entitic mass] 29.7 pg 27.0-32.0 [facility] MCHC (RBC) [Mass/Vol] 32.9 g/dL 32-36 [facility] Platelet mean volume (Bld) [Entitic vol] 10.9 fL 6.2-12.0 [facility] Platelets (Bld) [#/Vol] 301 10*3/uL 150-450 [facility] Mucus LM Ql (Urine sed)Order ed By: Harjinder Higgins on 11-07-2023 Mucus Ql (Urine sed) 0 SEEN /hpf [facility] Nitrite Test strip Ql (U)Ord ered By: Harjinder Higgins on 11-07-2023 Nitrite Ql (U) Negative Negative [facility] No Panel InformationOrdered By: Harjinder Higgins on 11-07-2023 Estimated GFR (MDRD) Amer 93 mL/min >60 [facility] Comment on above: GFR Calc Estimated GFR (MDRD) Non-Af Amer 77 mL/min >60 [facility] Comment on above: Non- GFR Calc Urine RBC 0-5 SEEN /hpf 0-5 [facility] Protein Test strip Ql (U)Ord ered By: Harjinder Higgins on 11-07-2023 Protein Ql (U) 15 mg/dl Negative [facility] RBC Auto (Bld) [#/Vol]Ordere d By: Harjinder Higgins on 11-07-2023 RBC (Bld) [#/Vol] 4.21 10*6/uL 4.2-5.4 [facility] Serum or plasma calcium carlos alberto urement (mass/volume)Ordered By: Harjinder Higgins on 11-07-2023 Calcium [Mass/Vol] 8.8 mg/dL 8.5-10.1 [facility] Serum or plasma creatinine m easurement (mass/volume)Ordered By: Harjinder Higgins on 11-07-2023 Creatinine [Mass/Vol] 0.84 mg/dL 0.55-1.02 [facility] Comment on above: The validity of the calculated GFR & GFRAA in patients over 70 years has not been determined. Clinical correlation is essential. Serum or plasma thyroid stim ulating hormone (TSH) measurement (units/volume)Ordered By: Harjinder Higgins on 11-07-2023 TSH Qn 2.15 uIU/mL 0.358-3.74 [facility] Serum or plasma urea nitroge n measurement (mass/volume)Ordered By: Harjinder Higgins on 11-07-2023 Urea nitrogen [Mass/Vol] 14 mg/dL 7-18 [facility] Squamous epithelial cells de tection in urine sediment by light microscopyOrdered By: Harjinder Higgins on 11-07-2023 Epithelial cells.squamous LM Ql (Urine sed) 0-5 SEEN /hpf 5-10 [facility] Thin prep Papanicolaou smear with manual screeningOrdered By: Harjinder Higgnis on 11-07-2023 Thin prep Papanicolaou smear with manual screening 3.6 g/dL 3.2-5.0 [facility] Thin prep Papanicolaou smear with manual screening 14 U/L 15-37 [facility] Thin prep Papanicolaou smear with manual screening 6 5-15 [facility] Urine blood detectionOrdered By: Harjinder Higgins on 11-07-2023 RBC Ql (U) 25 /ul Negative [facility] Urine clarityOrdered By: John Higgins on 11-07-2023 Clarity (U) Clear Clear [facility] Urine color determinationOrd ered By: Harjinder Higgins on 11-07-2023 Color (U) Yellow Yellow [facility] Urine glucose detectionOrder ed By: Harjinder Higgins on 11-07-2023 Glucose Ql (U) Normal mg/dl Normal [facility] Urine leukocyte esterase det ection by dipstickOrdered By: Harjinder Higgins on 11-07-2023 Leukocyte esterase Test strip Ql (U) Negative Negative [facility] Urine pHOrdered By: Sammy Higgins on 11-07-2023 pH (U) 5.0 [pH] 5.0 - 8.0 [facility] Urine sediment bacteria coun t by microscopy (number/high power field)Ordered By: Harjinder Higgins on 11-07-2023 Bacteria LM.HPF (Urine sed) [#/Area] 0 /[HPF] None Seen [facility] Urine specific gravity measu rementOrdered By: Harjinder Higgins on 11-07-2023 Specific gravity (U) [Rel density] 1.025 1.002-1.030 [facility] Urine urobilinogen measureme ntOrdered By: Harjinder Higgins on 11-07-2023 Urobilinogen Ql (U) Normal mg/dl Normal [facility] Whole blood hemoglobin A1c/t otal hemoglobin ratio (mass fraction)Ordered By: Harjinder Higgins on 11-07-2023 HbA1c (Bld) [Mass fraction] 5.6 % 3.8-5.6 [facility] Comment on above: Normal < 5.7 % Predi abetic 5.7 - 6.4 % Diabetic >or= 6.5 % Please note range changes. Basophil percentageOrdered B y: Harjinder Higgins on 11-06-2023 Basophil percentage 0 SEEN /hpf 0-5 [facility] Bilirubin Test strip Ql (U)O rdered By: Harjinder Higgins on 11-06-2023 Bilirubin Ql (U) Negative Negative [facility] Calcium oxalate crystals det ection in urine sediment by light microscopyOrdered By: Harjinder Higgins on 11-06-2023 Calcium oxalate crystals LM Ql (Urine sed) 1+ /hpf [facility] Culture, urineOrdered By: Vikki Higgins on 11-06-2023 Bacteria identified Cx Nom (U) Mixed Gram Pos & Gram Neg Org [facility] Ketones Test strip Ql (U)Ord ered By: Harjinder Higgins on 11-06-2023 Ketones Ql (U) 5 mg/dl Negative [facility] Mucus LM Ql (Urine sed)Order ed By: Harjinder Higgins on 11-06-2023 Mucus Ql (Urine sed) 0 SEEN /hpf [facility] Nitrite Test strip Ql (U)Ord ered By: Harjinder Higgins on 11-06-2023 Nitrite Ql (U) Negative Negative [facility] No Panel InformationOrdered By: Harjinder Higgins on 11-06-2023 Urine RBC 10-25 SEEN /hpf 0-5 [facility] Protein Test strip Ql (U)Ord ered By: Harjinder Higgins on 11-06-2023 Protein Ql (U) 30 mg/dl Negative [facility] Squamous epithelial cells de tection in urine sediment by light microscopyOrdered By: Harjinder Higgins on 11-06-2023 Epithelial cells.squamous LM Ql (Urine sed) 5-10 SEEN /hpf 5-10 [facility] Urine blood detectionOrdered By: Harjinder Higgins on 11-06-2023 RBC Ql (U) 150 /ul Negative [facility] Urine clarityOrdered By: John Higgins on 11-06-2023 Clarity (U) Sl. Cloudy Clear [facility] Urine color determinationOrd ered By: Harjinder Higgins on 11-06-2023 Color (U) Yellow Yellow [facility] Urine glucose detectionOrder ed By: Harjinder Higgins on 11-06-2023 Glucose Ql (U) Normal mg/dl Normal [facility] Urine leukocyte esterase det ection by dipstickOrdered By: Harjinder Higgins on 11-06-2023 Leukocyte esterase Test strip Ql (U) Negative Negative [facility] Urine pHOrdered By: Sammy Higgins on 11-06-2023 pH (U) 5.0 [pH] 5.0 - 8.0 [facility] Urine sediment bacteria coun t by microscopy (number/high power field)Ordered By: Harjinder Higgins on 11-06-2023 Bacteria LM.HPF (Urine sed) [#/Area] 0 /[HPF] None Seen [facility] Urine specific gravity measu rementOrdered By: Harjinder Higgins on 11-06-2023 Specific gravity (U) [Rel density] 1.025 1.002-1.030 [facility] Urine urobilinogen measureme ntOrdered By: Harjinder Higgins on 11-06-2023 Urobilinogen Ql (U) Normal mg/dl Normal [facility] Laboratory - Chemistry and C hemistry - challengeOrdered By: Harjinder Higgins on 02-02-2023 Cobalamin (Vitamin B12) [Mass/Vol] 592 pg/mL 211-911 [facility] No Panel InformationOrdered By: Harjinder Higgins on 02-02-2023 Vitamin D 25-Hydroxy 15.9 ng/mL [facility] Comment on above: Vitamin D 25(OH) Sta tus Range Deficiency <20 ng/mL (50nmol/L) Insufficiency 20 - 30 ng/mL (50 - 75 nmol/L) Sufficiency 30 - 100 ng/mL (75 - 250 nmol/L) Toxicity >100 ng/mL (>250 nmol/L) Absolute lymphocyte counton 08-05-2022 Lymphocytes Auto (Unsp spec) [#/Vol] 2.25 10*3/uL 0.83-4.51 [facility] Work Phone: Basophil percentageon 2021 Basophils/100 WBC (Bld) 0.4 % 0-1 [facility] Work Phone: Chloride [Moles/Vol] 109 mmol/L 98-107 [facility] Work Phone: Cholesterol [Mass/Vol] 205 mg/dL <200 [facility] Work Phone: Comment on above: <200 mg/dL Desirable 200-240 mg/dL Borderline >240 mg/dL High Risk Eosinophils/100 WBC (Bld) 1.2 % 0-5 [facility] Work Phone: Glucose [Mass/Vol] 90 mg/dL 74-106 [facility] Work Phone: Neutrophils (Bld) [#/Vol] 4.9 10*3/uL 2.0-7.7 [facility] Work Phone: Neutrophils/100 WBC (Bld) 63.2 % 47-70 [facility] Work Phone: Potassium [Moles/Vol] 4.2 mmol/L 3.5-5.1 [facility] Work Phone: Sodium [Moles/Vol] 140 mmol/L 136-145 [facility] Work Phone: Triglyceride [Mass/Vol] 186 mg/dL <199 [facility] Work Phone: Comment on above: The drugs N-Acetylcy steine and Metamizole may falsely depress this assay.Serum Triglycerides Reference Interval Normal <150 mg/dL Borderline high 150 - 199 mg/dL High 200 - 499 mg/dL Very High > or = 500 mg/dL WBC (Bld) [#/Vol] 7.7 10*3/uL 4.4-11.0 [facility] Work Phone: Bilirubin Test strip Ql (U)o n 08-05-2022 Bilirubin Ql (U) 1 mg/dL Negative [facility] Work Phone: Comment on above: COLOR OF URINE MAY A FFECT DIPSTICK RESULTS. Blood erythrocytes count (nu mber/volume)on 08-05-2022 RBC (Bld) [#/Vol] 4.52 10*6/uL 4.2-5.4 [facility] Work Phone: [phone] Blood hemoglobin measurement (mass/volume)on 08-05-2022 Hemoglobin (Bld) [Mass/Vol] 13.4 g/dL 12.0-15.0 [facility] Work Phone: Blood lymphocytes/100 leukoc yteson 08-05-2022 Lymphocytes/100 WBC (Bld) 29.1 % 19-41 [facility] Work Phone: [phone] Blood monocytes/100 leukocyt eson 08-05-2022 Monocytes/100 WBC (Bld) 5.8 % 0-10 [facility] Work Phone: [phone] Blood platelet mean volumeon 08-05-2022 Platelet mean volume (Bld) [Entitic vol] 11.0 fL 6.2-12.0 [facility] Work Phone: [phone] Determination of erythrocyte mean corpuscular volume (MCV)on 08-05-2022 MCV (RBC) [Entitic vol] 90.0 fL 81-99 [facility] Work Phone: [phone] Erythrocyte sedimentation ra claudia 08-05-2022 ESR (Bld) [Velocity] 15 mm/h 0-30 [facility] Work Phone: [phone] Hematocrit Auto (Bld) [Volum e fraction]on 08-05-2022 Hematocrit (Bld) [Volume fraction] 40.7 % 37-47 [facility] Work Phone: [phone] Ketones Test strip Ql (U)on 08-05-2022 Ketones Ql (U) 5 mg/dl Negative [facility] Work Phone: [phone] Laboratory - Chemistry and C hemistry - challengeon 08-05-2022 CO2 [Moles/Vol] 23.0 mmol/L 21.0-32.0 [facility] Work Phone: [phone] Cobalamin (Vitamin B12) [Mass/Vol] 211 pg/mL 211-911 [facility] Work Phone: [phone] Magnesium [Mass/Vol] 2.1 mg/dL 1.6-2.6 [facility] Work Phone: [phone] Urea nitrogen/Creatinine [Mass ratio] 12.8 mg/mg 10-20 [facility] Work Phone: [phone] Laboratory - Hematology and Cell countson 08-05-2022 Erythrocyte distribution width (RBC) [Entitic vol] 42.9 fL 35.1-43.9 [facility] Work Phone: [phone] Erythrocyte distribution width (RBC) [Ratio] 13.1 % 11.6-14.6 [facility] Work Phone: [phone] Immature granulocytes/100 WBC (Bld) 0.300 % 0.0-0.9 [facility] Work Phone: [phone] Comment on above: IG% - Immature Granu locytes (promyelocytes, myelocytes and metamyelocytes) > 1% indicates that a LEFT SHIFT is Present. MCH (RBC) [Entitic mass] 29.6 pg 27.0-32.0 [facility] Work Phone: [phone] Nucleated RBC/100 WBC (Bld) [Ratio] 0 % 0-5 [facility] Work Phone: [phone] MCHC Auto (RBC) [Mass/Vol]on 08-05-2022 MCHC (RBC) [Mass/Vol] 32.9 g/dL 32-36 [facility] Work Phone: [phone] Nitrite Test strip Ql (U)on 08-05-2022 Nitrite Ql (U) Negative Negative [facility] Work Phone: No Panel Informationon 08-05 Anti-Nuclear Antibody Screen Negative Negative [facility] Work Phone: [phone] Comment on above: Performed at: [facility] [address] [id number] Director: Maximino Felton PhD, Phone: [phone] Estimated GFR (MDRD) Amer 82 mL/min >60 [facility] Work Phone: Comment on above: GFR Calc Estimated GFR (MDRD) Non-Af Amer 68 mL/min >60 [facility] Work Phone: Comment on above: Non- GFR Calc Thyroid Stimulating Hormone (TSH) 3.28 uIU/mL 0.358-3.74 [facility] Work Phone: Vitamin D 25-Hydroxy 9.5 ng/mL [facility] Work Phone: [phone] Comment on above: Vitamin D 25(OH) Sta tus Range Deficiency <20 ng/mL (50nmol/L) Insufficiency 20 - 30 ng/mL (50 - 75 nmol/L) Sufficiency 30 - 100 ng/mL (75 - 250 nmol/L) Toxicity >100 ng/mL (>250 nmol/L) Platelets bldon 08-05-2022 Platelets (Bld) [#/Vol] 331 10*3/uL 150-450 [facility] Work Phone: [phone] Protein Test strip Ql (U)on 08-05-2022 Protein Ql (U) 30 mg/dl Negative [facility] Work Phone: [phone] Serum or plasma calcium carlos alberto urement (mass/volume)on 08-05-2022 Calcium [Mass/Vol] 9.2 mg/dL 8.5-10.1 [facility] Work Phone: [phone] Serum or plasma cholesterol in HDL measurement (mass/volume)on 08-05-2022 Cholesterol in HDL [Mass/Vol] 53 mg/dL >40 [facility] Work Phone: Comment on above: The drugs N-Acetylcy steine and Metamizole may falsely depress this assay. Reference Range HDL <40 mg/dL Low HDL Cholesterol HDL >or= 60 mg/dL High HDL Cholesterol Serum or plasma cholesterol in VLDL measurement (mass/volume)on 08-05-2022 Cholesterol in VLDL [Mass/Vol] 37 mg/dL 5-40 [facility] Work Phone: [phone] Serum or plasma creatinine m easurement (mass/volume)on 08-05-2022 Creatinine [Mass/Vol] 0.94 mg/dL 0.55-1.02 [facility] Work Phone: Comment on above: The validity of the calculated GFR & GFRAA in patients over 70 years has not been determined. Clinical correlation is essential. Serum or plasma low density lipoprotein (LDL) cholesterol measurement (mass/volume)on 08-05-2022 Cholesterol in LDL [Mass/Vol] 115 mg/dL 0-130 [facility] Work Phone: [phone] Serum or plasma urea nitroge n measurement (mass/volume)on 08-05-2022 Urea nitrogen [Mass/Vol] 12 mg/dL 7-18 [facility] Work Phone: [phone] Thin prep Papanicolaou smear with manual screeningon 08-05-2022 Thin prep Papanicolaou smear with manual screening 8 5-15 [facility] Work Phone: [phone] Urine blood detectionon 07-13 RBC Ql (U) 25 /ul Negative [facility] Work Phone: [phone] Urine clarityon 08-05-2022 Clarity (U) Sl. Cloudy Clear [facility] Work Phone: [phone] Urine color determinationon 08-05-2022 Color (U) Yellow Yellow [facility] Work Phone: Urine glucose detectionon Glucose Ql (U) Normal mg/dl Normal [facility] Work Phone: Urine leukocyte esterase det ection by dipstickon 08-05-2022 Leukocyte esterase Test strip Ql (U) Negative Negative [facility] Work Phone: Urine pHon 08-05-2022 pH (U) 5.0 [pH] 5.0 - 8.0 [facility] Work Phone: Urine specific gravity measu rementon 08-05-2022 Specific gravity (U) [Rel density] 1.025 1.002-1.030 [facility] Work Phone: Urobilinogen Auto test strip Ql (U)on 08-05-2022 Urobilinogen Ql (U) Normal mg/dl Normal [facility] Work Phone: No Panel Informationon 05-09 POC SARS CoV-2 Antigen Negative [facility] Work Phone: Vital Signs Date Time Vital Sign Value Performing Clinician Faci lity 04-07-2023 09:40-0400 Body temperature 97.2 [degF] Dr. Harjinder Higgins Work Phone: [facility] 04-07-2023 09:40-0400 Diastolic blood pressure 77 mm[Hg] Dr. Harjinder Higgins Work Phone: [facility] 04-07-2023 09:40-0400 Heart rate 71 /min Dr. Harjinder Higgins Work Phone: [facility] 04-07-2023 09:40-0400 Respiratory rate 16 /min Dr. Harjinder Higgins Work Phone: [facility] 04-07-2023 09:40-0400 SaO2% (BldA) [Mass fraction] 98 % Dr. Harjinder Higgins Work Phone: [facility] 04-07-2023 09:40-0400 Systolic blood pressure 112 mm[Hg] Dr. Harjinder Higgins Work Phone: [facility] 04-07-2023 08:37-0400 Body height 154.[address] Harjinder Higgins Work Phone: [facility] 04-07-2023 08:37-0400 Body mass index (BMI) [Ratio] 35.8 kg/m2 Dr. Harjinder Higgins Work Phone: [facility] 04-07-2023 08:37-0400 Body weight [address] Harjinder Higgins Work Phone: [facility] 02-10-2023 10:20-0400 Body mass index (BMI) [Ratio] 37 kg/m2 Dr. Harjinder Higgins Work Phone: [facility] 02-10-2023 10:20-0400 Body weight 86.[address] Harjinder Higgins Work Phone: [facility] 05-09-2022 16:00-0400 Body temperature 98 [degF] Dr. Harjinder Higgins Work Phone: [facility] Work Phone: 05-09-2022 16:00-0400 Diastolic blood pressure 76 mm[Hg] Dr. Harjinder Higgins Work Phone: [facility] Work Phone: 05-09-2022 16:00-0400 Heart rate 89 /min Dr. Harjinder Higgins Work Phone: [facility] Work Phone: 05-09-2022 16:00-0400 Respiratory rate 14 /min Dr. Harjinder Higgins Work Phone: [facility] Work Phone: 05-09-2022 16:00-0400 SaO2% (BldA) [Mass fraction] 98 % Dr. Harjinder Higgins Work Phone: [facility] Work Phone: 05-09-2022 16:00-0400 Systolic blood pressure 124 mm[Hg] Dr. Harjinder Higgins Work Phone: [facility] Work Phone: Encounters Encounter Date Encounter Type Care Provider Facility Start: 02-11-2025 End: 02-11-[address] Guru Higgins MD Work Phone: [facility] Work Phone: Start: 02-11-2025 End: 02-11-[address] Guru Higgins MD [facility] Work Phone: Start: 02-10-2025 End: 02-11-2025 ambulatory Guru Higgins Facility:[facility] Start: 02-04-2025 End: 02-04-[address] GURU HIGGINS MD Facility:[facility] [facility] Start: 02-04-2025 End: 02-04-[address] GURU HIGGINS MD [facility] Start: 08-29-2024 End: 08-29-2024 ambulatory Guru Higgins Facility:[facility] Start: 08-20-2024 Encounter for other preprocedural examination Elvin Ortiz [facility] Start: 08-07-2024 End: 08-07-2024 ambulatory Guru Higgins Facility:[facility] Start: 08-07-2024 End: 08-07-2024 ambulatory Guru Higgins Facility:[facility] Start: 08-02-2024 End: 08-02-2024 ambulatory Guru Higgins Facility:[facility] Start: 07-22-2024 End: 07-22-2024 ambulatory Guru Higgins Facility:[facility] Start: 07-01-2024 End: 07-01-2024 ambulatory Guru Higgins Facility:[facility] Start: 06-12-2024 End: 06-12-2024 ambulatory Guru Higgins Facility:[facility] Start: 06-04-2024 End: 06-04-2024 ambulatory Guru Higgins Facility:[facility] Start: 06-04-2024 End: 06-04-2024 ambulatory Guru Higgins Facility:[facility] Start: 05-29-2024 End: 05-29-2024 ambulatory Guru Higgins Facility:[facility] Start: 05-21-2024 End: 05-21-2024 ambulatory Guru Higgins Facility:[facility] Start: 02-13-2024 End: 02-14-2024 ambulatory LESLITRACEY GÓMEZ [facility] Start: 02-13-2024 End: 02-14-2024 Encounter for gynecological examination (general) (routine) without abnormal findings LESLITRACEY GÓMEZ [facility] Start: 11-07-2023 End: 11-07-2023 ambulatory [facility] Work Phone: Start: 11-07-2023 End: 11-07-2023 Patient encounter procedure [facility] [place] Work Phone: Start: 11-06-2023 End: 11-06-2023 ambulatory [facility] Work Phone: Start: 11-06-2023 End: 11-06-2023 Patient encounter procedure [facility] [place] Work Phone: Start: 05-17-2023 End: 05-17-[address] Harjinder Higgins Work Phone: [facility] Work Phone: Start: 05-17-2023 End: 05-17-[address] Harjinder Higgins Work Phone: [facility]-Outpatient Breast Imaging Work Phone: Start: 04-17-[address] Jose Higgins Work Phone: [facility]-Physical Therapy Work Phone: Start: 04-07-2023 Non-patient / Non-visit Dr. Vikki Higgins Work Phone: [facility] Start: 04-07-2023 End: 04-07-2023 Admission to same day surgery center Dr. Harjinder Higgins Work Phone: [facility]-Endoscopy Work Phone: Start: 02-16-2023 End: 02-16-[address] Harjinder Higgins Work Phone: [facility] Work Phone: Start: 02-10-2023 Non-patient / Non-visit Dr. Vikki Higgins Work Phone: [facility] Work Phone: Start: 02-03-2023 End: 02-03-[address] [facility] Work [facility]: Start: 02-02-2023 End: 02-02-[address] Harjinder Higgins Work Phone: [facility] Start: 08-05-2022 End: 08-05-[address] Harjinder Higgins Work Phone: [facility] Work Phone: Start: 08-05-2022 End: 08-05-[address] Harjinder Higgins Work Phone: [facility] Start: 05-09-2022 End: 05-09-[address] Harjinder Higgins Work Phone: [facility] Start: 05-06-2022 End: 05-06-[address] Harjinder Higgins Work Phone: [facility] Work Phone: Start: 05-06-2022 End: 05-06-[address] Harjinder Higgins Work Phone: [facility]-Outpatient Breast Imaging Procedures Date Procedure Procedure Detail Performing Clinician Start: 02-11-2025 Vitamin D, 25-hydrox y measurement Dr. Guru Higgins MD Work Phone: Comment on above: Vitamin D StatusDefi ciency: <20 ng/mL (50nmol/L)Insufficiency: 20-30 ng/mL (50-75 nmol/L)Sufficiency: 30-100 ng/mL (75-250 nmol/L)Toxicity: >100 ng/mL (>250 nmol/L) Start: 11-07-2023 Urine culture Start: 11-06-2023 Urine culture Start: 05-17-2023 Screening mammography Joss Higgins Work Phone: Start: 02-16-2023 Radiologic examinati on of knee Dr. Harjinder Higgins Work Phone: Start: 05-06-2022 Screening mammography Joss Higgins Work Phone: Plan of Treatment Date Care Activity Detail Author Start: 04-07-2023 Colonoscopy flx dx w/collj spec when pfrmd DIAGNOSTIC COLONOSCOPY [facility] Start: 04-07-2023 [facility] Work Phone: Payers Date Payer Category Payer Private Health Insurance [id number] 2024 Self-pay [id number] 2023 Private Health Insurance [id number] 2011 Unknown [employer] [id number] 1975 Unknown [id number] 1975 Unknown [id number] Private Health Insurance [employer] [id number] Unknown [employer] [id number] Unknown [facility] [id number] Unknown [id number] Unknown [id number] [id number] Unknown [id number] [id number] Unknown [id number] [id number] Unknown [id number] [id number] Unknown [id number] 2.16.840.1.855758.3.579.2.462 Unknown [id number] 2.840.1.438012.3.579.2.462 Unknown [id number] [id number] Unknown [id number] [id number] Unknown [id number] 2.16.840.1.379520.3.579.2.462 Unknown [id number] 2.16.840.1.228491.3.579.2.462 Unknown [id number] 2.840.1.844893.3.579.2.462 Unknown [id number] [id number] Unknown [id number] [id number] Social History Date Type Detail Facility Start: 05-09-2022 End: 04-03-2023 Tobacco smoking status MTIS Unknown if ever smoked [facility] Start: 1975 Sex Assigned At Female [facility] Tobacco smoking status [facility] Sex Female (finding) Jaqui singleton Start: 08-07-2024 Tobacco smoking status NHIS Never smoked tobacco (finding) [facility] NEGATED: Highlighted row [facility] Goals Date Patient Goal Desired Activity /State Mental Status Date Assessment Result Facility 04-07-2023 Cognitive function Voice/Name [facility] Work Phone: Clinical Note 07-22-2024 Note Date & Type Note Facility 07-22-2024 Note [facility] Medical Records Department [address] [place] [address] History Physical Exam 07/22/24 0803 MR#: [id number] Acct: [id number] Name: ROCÍO NIEVES Rep #: [id number] : 1975 49 From: Elvin Ortiz MD PCP: Dr. Guru Higgins MD Status:[facility] Location: [place] [address] History and Physical Date of Admission: 07/22/24 [...] BREAST SURGERY Chief Complaint: Discuss breast surgery Office Mail Clerk Required: No Accompanied by: Mother Is patient [...] prior to surgery. Elvin Ortiz MD Pager: [facility] [address] [place] [address], [address] [place] [address] Office: I have examined the patient and the H P has b (more content not included)... [facility] Evaluation + Plan note Note Date & Type Note Facility Evaluation + Plan note No data available for this section [facility] Evaluation note Note Date & Type Note Facility Evaluation note Diagnosis Onset Date Acute upper respiratory infection acute Contact with or suspected ex posure to other viral communicable disease acute [facility] Work Phone: Evaluation note Note Date & Type Note Facility Evaluation note Diagnosis Onset Date Encounter for screening for malignant neoplasm of colon acute [facility] Work Phone: Evaluation note Note Date & Type Note Facility Evaluation note No assessment information availa [facility] Work Phone: Hospital Discharge instructions Note Date & Type Note Facility Hospital Discharge instructions No data available for this section [facility] Progress note Note Date & Type Note Facility Progress note No data available for this section [facility] Reason for referral (narrative) Note Date & Type Note Facility Reason for referral (narrative) No reason for referral information available [facility] Work Phone: Chief Complaint and Reason for Visit Chief Complaint SCREENING COVID TEST/SYMPTOMS X 4-5 DAYS/EXPOSED Reason for Visit Acute upper respirat ory infection Contact with or suspected exposure to other viral communicable disease Chief Complaint Amb Documentation RIGHT KNEE -pain R KNEE PN/RX HERE SCREENING Reason for Visit Encounter for screen ing for malignant neoplasm of colon Chief Complaint EORDER Chief Complaint Admit Date LABS February 11, 2025 1:16p m Advance Directives No Advanced Directives Records Found Advance Directive Response Recorded Date/ Time Living Will No April 03, 2023 12:35pm Power of District Attorney No April 03 12:35pm Advance Directive Response Recorded Date/ Time Living Will No April 03, 2023 11:35am Power of District Attorney No April 03 11:35am Summary Purpose Family [...] alternate section No data available for this sectionGoals may be documented in an alternate section Care Teams (unrecognized sec tion and content) Team Status: Active Member Role Status Dates Dr. Harjinder Higgins MD Family Provider Active Dr. Harjinder Higgins MD Primary Care Provider Activ e Team Status: Active Member Role Status Dates Dr. Harjinder Higgins MD Primary Care Provider Activ e aPdmini Kelley Attending Provider Active Team Status: Active Member Role Status Dates Dr. Harjinder Higgins MD Primary Care Provider, Refe rring Provider Active Dr. Wilian Witt MD Attending Provider, Other Prov ider Active Team Status: Inactive Member Role Status Dates Dr. Harjinder Higgins MD Primary Care Provider, Atte nding Provider Active Team Status: Inactive Member Role Status Dates Dr. Harjinder Higgins MD Primary Care Provider, Attending Provider, Referring Provider Active Team Status: Inactive Member Role Status Dates Dr. Harjinder Higgins MD Primary Care Provider, Refe rring Provider Active Dr. Wilian Witt MD Attending Provider Active Team Status: Active Member Role Status Dates Dr. Harjinder Higgins MD Primary Care Provider, Attending Provider, Referring Provider Active Team Status: Inactive Member Role Status Dates Dr. Harjinder Higgins MD Primary Care Provider Activ e BRITTANI GODDARD Attending Provider, Referring Provider A ctive Team Status: Active Member Role Status Dates Dr. Guru Higgins MD Primary Care Provider Acti ve Team Status: Inactive Member Role Status Dates Dr. Guru Higgins MD Primary Care Provider Acti ve Start: February 11, 2025 End: February 11, 2025 Dr. Guru Higgins MD Attending Provider Active Start: February 11, 2025 End: February 11, 2025 Dr. Guru Higgins MD Referring Provider Active Start: February 11, 2025 End: February 11, 2025 INFORMATION SOURCE (unrecogn ized section and content) DATE CREATED AUTHOR 01/03/2025 [facility] DATE CREATED AUTHOR AUTHOR'S ORGANIZ ATION 02/08/2025 [facility] DATE CREATED AUTHOR AUTHOR'S ORGANIZ ATION 02/18/2025 [facility] FOR RECORDS PERTAINING TO PATIENTS WHO [...] BE BASED ON THE PRIMARY CLINICAL RECORDS. [facility]. provides no warranty or guarantee of the accuracy or completeness of information in this document.
[2025-04-02 20:36] LABS: AST(SGOT) 23 U/L (<=31); Alanine Aminotransfer ALT/SGPT 21 U/L (<=34); Albumin, Serum 4.2 g/dL (3.5-5.0); Alkaline Phosphatase 80 U/L (35-104); Amylase 47 U/L (28-100); Anion Gap 11 (5-15); BUN 12 mg/dL (4-19); BUN/Creat Ratio 15.4 RATIO (10-20); Calcium,Total 9.1 mg/dL (7.6-11.0); Carbon Dioxide 23.0 mmol/L (21.0-32.0); Chloride 103 mmol/L (98-108); Globulin 2.8 g/dL (2.2-4.2); Glucose 106 mg/dL (70-99); Lipase 33 U/L (13-75); Potassium 4.1 mmol/L (3.3-5.1)
[2025-04-04 16:09] LABS: Immunoglobulin A 194 mg/dL (87-352)
[2025-04-08 07:08] LABS: Egg, Whole 0.15 kU/L (Class 0/I); Mussels <0.10 kU/L (Class 0)
== END | disposition home or self-care (01) ==
LOC: MTLAB 15:15
PROVIDERS: PCP Family Medicine; Referring Provider Family Medicine; Visit Provider Family Medicine
DX: R10.9 Unspecified abdominal pain (principal)
CPT/HCPCS: 36415; 74022; 80053; 82150; 82784; 83516; 83690; 85025; 85652; 86003; 86005; 86255

== ENCOUNTER → 2025-06-23 | Outpatient (CLI) | payer BC, SELFPAY ==
--- NOTE | 2025-06-23 16:08 | BI_ITS ---
EXAM: SCRN MAMM (CAD)W/VELMA BILAT DATE: 06/23/2025 CLINICAL HISTORY: F, Age 49 y/o , FIBROADENOMA OF THE LEFT BREAST TECHNIQUE: Procedure Code: [id number] Modality: MG Procedure: SCRN MAMM (CAD)W/VELMA BILAT COMPARISON: Prior exam(s) dated mammogram dated 07/22/2024, 05/21/2024 and 05/06/2022. FINDINGS: TISSUE DENSITY: There are scattered areas of fibroglandular density... Bilateral Breast Mammographic Findings: No significant masses, calcifications or other abnormalities are identified. Benign round microcalcifications are seen in both breasts. BI/SCRN MAMM (CAD)W/VELMA BILAT IMPRESSION: Benign screening mammogram OVERALL FINAL ASSESSMENT BI-RADS 2: BENIGN RECOMMENDATION: Routine annual follow-up in 1 Year Additional Recommendation none A letter with findings and recommendations will be mailed to the patient. Reading Location: [id number]
== END | disposition home or self-care (01) ==
PROVIDERS: PCP Family Medicine; Referring Provider Surgery; Visit Provider Surgery
DX: Z12.31 Encounter for screening mammogram for malignant neoplasm of breast (principal)
CPT/HCPCS: 77063; 77067